=== PATIENT | female | born 1960 | race African-American/Black ===

== ENCOUNTER → 2017-10-17 17:49 | Outpatient (CLI) | payer OTHER, MEDICAID, SELFPAY ==
--- NOTE | 2017-10-17 17:56 | DI.RAD.S_ITS ---
PROCEDURE: XR CERVICAL SPINE 2V OR 3V INDICATIONS: chronic neck and arm pain TECHNIQUE: 3 view(s) of the cervical spine were acquired. COMPARISON: [facility], X-ray, cervical spine 3 V, 10/16/2011. FINDINGS: Bones: No fractures or dislocations to the C7 level. Straightening of cervical curvature with loss of normal cervical lordosis. The lateral masses of C1 appear intact on the odontoid view. There is mild/moderate degenerative disc disease at C5-C6 and C6-C7, slightly increased since . No suspicious bony lesions. Soft tissues: No prevertebral soft tissue swelling. IMPRESSION: 1. Mild worsening of degenerative disc disease. 2. Loss of cervical curvature. Dictated by: Trinity Easton M.D. on 10/17/2017 at 20:47 Approved by: Trinity Easton M.D. on 10/17/2017 at 20:49
== END ==
PROVIDERS: Visit Provider Physician Assistant
DX: M50.322 Other cervical disc degeneration at C5-C6 level (principal); M54.2 Cervicalgia; M79.603 Pain in arm, unspecified; R20.2 Paresthesia of skin
CPT/HCPCS: 72040

== ENCOUNTER 2018-01-03 14:32 | Emergency (ER) | payer OTHER, MEDICAID, SELFPAY ==
[2018-01-03 14:36] VITALS: BP 176/112; PULSE 81; RESP 20; TEMP 36.6; O2SAT 99; BMI 28.3
== END 2018-01-03 16:23 | disposition left against medical advice (07) ==
DX: S91.332A Puncture wound without foreign body, left foot, initial encounter (principal)
CPT/HCPCS: 99281

== ENCOUNTER 2018-01-04 22:29 | Emergency (ER) | payer OTHER, MEDICAID, SELFPAY ==
[2018-01-04 22:42] VITALS: BP 151/98; PULSE 74; RESP 18; TEMP 37.4; O2SAT 97; BMI 28.3
--- NOTE | 2018-01-04 22:58 | PC.NURSE ---
pt has small red area that loos like it may have been a puncture wound. pt stated we picked glass out of there the other day and it was swollen up like golf ball size. pt worried there is still glass in her foot. swelling barley noticable. denies fever,v/n/d, fatigue or SOB/Chest pain.
--- NOTE | 2018-01-04 23:06 | DI.RAD.S_ITS ---
PROCEDURE: XR FOOT LT 2V INDICATIONS: Puncture wound; possible foreign body. TECHNIQUE: 3 views of the foot were acquired. COMPARISON: None. FINDINGS: Bones: No fractures or dislocations. No suspicious bony lesions. Degenerative joint disease noted. Soft tissues: No tibiotalar joint effusion. Achilles tendon appears normal. No radiopaque foreign bodies identified. IMPRESSION: No radiopaque foreign bodies. Dictated by: Trinity Easton M.D. on 01/05/2018 at 10:05 Approved by: Trinity Easton M.D. on 01/05/2018 at 10:06
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
== END 2018-01-05 00:39 | disposition home or self-care (01) ==
PROVIDERS: Emergency Provider Emergency Medicine
DX: S91.332A Puncture wound without foreign body, left foot, initial encounter (principal); W25.XXXA Contact with sharp glass, initial encounter
CPT/HCPCS: 73620; 99282; 99283

== ENCOUNTER 2018-08-29 01:38 | Emergency (ER) | payer OTHER, MEDICAID, SELFPAY ==
--- NOTE | 2018-08-29 01:44 | DI.RAD.S_ITS ---
PROCEDURE: XR CHEST 1V INDICATIONS: Chest Pain TECHNIQUE: One view of the chest was acquired. COMPARISON: [facility], CHEST 1 VIEW, 07/15/2017, 16:03. [facility], CHEST 1 VIEW, 04/04/2017, 8:04. [facility], , CHEST 2 VIEW, 03/17/2017, 13:47. FINDINGS: Surgical changes and devices: None. Lungs and pleura: Mild prominence of the pulmonary vasculature. Mild bilateral perihilar pulmonary opacities. No pleural effusion or pneumothorax. Mediastinum: Mediastinal contours appear normal. Heart size at the upper limits of normal in size, similar to prior exam. Bones and chest wall: No suspicious bony lesions. Overlying soft tissues appear unremarkable. IMPRESSION: Mild bilateral perihilar pulmonary opacities most consistent with atelectasis. Dictated by: Viin Saldana M.D. on 08/29/2018 at 5:57 Approved by: Vini Saldana M.D. on 08/29/2018 at 6:00
[2018-08-29 01:52] VITALS: BP 213/127; PULSE 85; RESP 19; TEMP 36.9; O2SAT 95; BMI 31.8
--- NOTE | 2018-08-29 01:59 | PC.NURSE ---
Attempted to place PIV. Flash received, pt jerked and was unable to advance catheter despite trying to call patient.
[2018-08-29] MEDS: ASPIRIN 81 MG TAB 324 MG PO (02:04)
--- NOTE | 2018-08-29 02:09 | PC.NURSE ---
Magnolia Valdez RN attempted one IV start. Pt refuses further IV starts. Provider notified and ok'd a lab draw.
--- NOTE | 2018-08-29 02:10 | PC.NURSE ---
Drawn by Miya from Lab
[2018-08-29 02:11] VITALS: BP 160/101; PULSE 82; RESP 18; O2SAT 98
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
[2018-08-29 02:19] LABS: Add Manual Diff / Slide Review NO; Basophils Absolute Auto 100 /uL (0-100); Eosinophils Absolute Auto 200 /uL (0-450); Eosinophils Percent Auto 2.4 % (2-4); Hematocrit 40.8 % (36-46); Hemoglobin 13.5 g/dL (12.0-16.0); Lymphocytes Absolute Auto 2400 /uL (1100-4500); Lymphocytes Percent Auto 34.2 % (25-40); Mean Corpuscular Hemoglobin 27.6 PG (26-34); Mean Corpuscular Volume 83.6 fL (80-100); Monocytes Absolute Auto 700 /uL (0-900); Monocytes Percent Auto 10.7 % (3-14); Neutrophils Absolute Auto 3600 /uL (1500-7000); Neutrophils Percent Auto 51.7 % (50-75); Platelet Count 141 X10^3/uL (150-400); Red Blood Cell Count 4.88 X10^6/uL (4.0-5.2); Red Cell Distribution Width 12.5 % (11.6-14.8); White Blood Cell Count 6.9 X10^3/uL (4.5-11.0)
[2018-08-29 02:23] LABS: D Dimer < 200 ng/mL (<230)
[2018-08-29 02:24] LABS: Alanine Aminotransferase 54 IU/L (9-52); Albumin 4.1 g/dL (3.5-5.0); Albumin Globulin Ratio 1.2 (1.0-2.8); Alkaline Phosphatase 136 U/L (38-126); Aspartate Aminotransferase 55 IU/L (14-36); Bilirubin Total 0.3 mg/dL (0.2-1.3); Blood Urea Nitrogen 16 mg/dL (7-17); Calcium 9.2 mg/dL (8.4-10.2); Carbon Dioxide 27 mmol/L (22-32); Chloride 98 mmol/L (98-107); Creatine Kinase 212 U/L (30-135); Estimated Glomerular Filt Rate 57.6 mL/min (>60); Globulin 3.5 g/dL (1.7-4.1); Glucose 145 mg/dL (70-100); HEMOLYSIS < 15 (0-50); Lipase 102 U/L (23-300); Potassium 3.1 mmol/L (3.4-5.1); Sodium 136 mmol/L (137-145); Total Protein 7.6 g/dL (6.3-8.2)
[2018-08-29 02:36] LABS: Troponin I 0.023 ng/mL (0.01-0.034)
[2018-08-29 02:40] LABS: CKMB % Relative Index 1.7 % (1.5-5.0); Creatine Kinase MB 3.53 ng/mL (<2.37)
[2018-08-29 02:42] LABS: B Type Natriuretic Peptide < 100 (<100)
[2018-08-29] MEDS: POTASSIUM CHLORIDE 20 MEQ/15 ML UDC 40 MEQ PO (02:43)
[2018-08-29 02:48] VITALS: BP 143/118; PULSE 82; RESP 18; O2SAT 98
== END 2018-08-29 02:51 | disposition home or self-care (01) ==
PROVIDERS: Emergency Provider Emergency Medicine
DX: R07.89 Other chest pain (principal); S30.861A Insect bite (nonvenomous) of abdominal wall, initial encounter
CPT/HCPCS: 36415; 71045; 80053; 82550; 82553; 83690; 83880; 84484; 85025; 85379; 93005; 99283; 99285

== ENCOUNTER 2018-08-30 14:49 | Emergency (ER) | payer OTHER, MEDICAID, SELFPAY ==
[2018-08-30 15:00] VITALS: BP 184/109; PULSE 76; RESP 20; TEMP 37; O2SAT 99
== END 2018-08-30 19:23 | disposition left against medical advice (07) ==
PROVIDERS: Emergency Provider Emergency Medicine
DX: Z53.21 Procedure and treatment not carried out due to patient leaving prior to being seen by health care provider (principal)
CPT/HCPCS: 99282

== ENCOUNTER 2018-11-21 20:37 | Emergency (ER) | payer OTHER, MEDICAID, SELFPAY ==
[2018-11-21 21:02] VITALS: BP 190/127; PULSE 72; RESP 13; TEMP 36.2; O2SAT 100
--- NOTE | 2018-11-21 21:05 | DI.RAD.S_ITS ---
PROCEDURE: XR FOOT RT MIN 3V INDICATIONS: poss needle part in foot. TECHNIQUE: 3 views of the foot were acquired. COMPARISON: [facility], CR, XR FOOT LT 2V, 01/04/2018, 22:49. FINDINGS: Bones: No acute fractures or dislocations. Small ossicle adjacent to the first metatarsal head may represent a fracture fragment. Navicular os. Prior distal fibular ORIF. No beau-screw lucency or lift off. No suspicious bony lesions. Soft tissues: No radiopaque foreign body. No tibiotalar joint effusion. Achilles tendon appears normal. IMPRESSION: 1. No radiopaque foreign body. 2. No acute osseous abnormality. Dictated by: Armond Torrez M.D. on 11/21/2018 at 21:39 Approved by: Armond Torrez M.D. on 11/21/2018 at 21:42
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
[2018-11-21] MEDS: TET,DIPH,PERTUSS(ACELL),VAC/PF 0.5 ML SYRINGE IM (21:37)
[2018-11-21 22:01] VITALS: BP 200/108; PULSE 68; RESP 13; TEMP 36.7; O2SAT 99
== END 2018-11-21 22:02 | disposition home or self-care (01) ==
PROVIDERS: Emergency Provider Emergency Medicine
DX: M79.671 Pain in right foot (principal); W26.8XXA Contact with other sharp object(s), not elsewhere classified, initial encounter; Z23 Encounter for immunization
CPT/HCPCS: 73630; 90472; 99282; 99283; 90715

== ENCOUNTER 2018-11-22 21:15 | Emergency (ER) | payer OTHER, MEDICAID, SELFPAY ==
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
[2018-11-22 21:20] VITALS: PULSE 92; RESP 24; TEMP 37.3; O2SAT 99
[2018-11-22 21:26] VITALS: BP 210/121
--- NOTE | 2018-11-22 21:27 | PC.NURSE ---
notified doctor of high bp, no action required
[2018-11-22] MEDS: DOXYCYCLINE HYCLATE 100 MG TABLET PO (21:30)
== END 2018-11-22 21:39 | disposition home or self-care (01) ==
PROVIDERS: Emergency Provider Emergency Medicine
DX: L03.113 Cellulitis of right upper limb (principal); W26.8XXD Contact with other sharp object(s), not elsewhere classified, subsequent encounter
CPT/HCPCS: 99282; 99283

== ENCOUNTER 2019-08-30 10:02 | Inpatient (IN) | payer OTHER, MEDICAID, SELFPAY ==
[2019-08-30] VITALS (20 sets, daily range): BP systolic 133–240; BP diastolic 83–162; PULSE 66–91; RESP 13–20; TEMP 35.9–36.5; O2SAT 95–100; BMI 33.1
--- NOTE | 2019-08-30 10:19 | DI.RAD.S_ITS ---
PROCEDURE: XR CHEST 1V INDICATIONS: chest pain TECHNIQUE: One view of the chest was acquired. COMPARISON: [facility], , CHEST 1 VIEW, 04/04/2017, 8:04. [facility], , CHEST 1 VIEW, 07/15/2017, 16:03. [facility], , XR CHEST 1V, 08/29/2018, 1:48. FINDINGS: Surgical changes and devices: None. Lungs and pleura: Lungs are clear. No pleural effusions or pneumothorax. Mediastinum: The cardiac contours are within normal limits. The aorta demonstrates calcification and tortuosity. Bones and chest wall: Age-appropriate bony degenerative changes are seen. No suspicious bony lesions. Overlying soft tissues appear unremarkable. IMPRESSION: Unremarkable portable chest for age. Dictated by: Jose Goldberg M.D. on 08/30/2019 at 9:38 Approved by: Jose Goldberg M.D. on 08/30/2019 at 9:38
[2019-08-30 10:28] LABS: Add Manual Diff / Slide Review NO; Basophils Absolute Auto 100 /uL (0-100); Basophils Percent Auto 1.2 % (0-2); Eosinophils Absolute Auto 200 /uL (0-450); Hematocrit 43.1 % (36-46); Hemoglobin 14.2 g/dL (12.0-16.0); Lymphocytes Absolute Auto 2200 /uL (1100-4500); Mean Corpuscular HGB Conc 32.9 % (30-36); Mean Corpuscular Hemoglobin 27.1 PG (26-34); Mean Corpuscular Volume 82.3 fL (80-100); Monocytes Absolute Auto 900 /uL (0-900); Monocytes Percent Auto 11.1 % (3-14); Neutrophils Absolute Auto 5000 /uL (1500-7000); Neutrophils Percent Auto 59.7 % (50-75); Platelet Count 144 X10^3/uL (150-400); Red Blood Cell Count 5.23 X10^6/uL (4.0-5.2); Red Cell Distribution Width 12.8 % (11.6-14.8); White Blood Cell Count 8.4 X10^3/uL (4.5-11.0)
[2019-08-30 10:37] LABS: PTT Partial Thromboplastin Tim 30 SECONDS (26.4-36.2)
[2019-08-30 10:41] LABS: Alanine Aminotransferase 36 IU/L (<35); Alkaline Phosphatase 156 U/L (38-126); Aspartate Aminotransferase 52 IU/L (14-36); BUN Creatinine Ratio 19.4 (6-22); Bilirubin Total 0.5 mg/dL (0.2-1.3); Blood Urea Nitrogen 33 mg/dL (7-17); Calcium 9.4 mg/dL (8.4-10.2); Carbon Dioxide 29 mmol/L (22-32); Chloride 100 mmol/L (98-107); Creatine Kinase 121 U/L (30-135); Estimated Glomerular Filt Rate 31.1 mL/min (>60); Glucose 95 mg/dL (70-100); HEMOLYSIS < 15 (0-50); Lipase 195 U/L (23-300); Potassium 3.6 mmol/L (3.4-5.1); Sodium 135 mmol/L (137-145)
[2019-08-30] MEDS: LABETALOL 20 MG/4 ML SYRINGE 10 MG IV (10:50)
[2019-08-30 10:56] LABS: CKMB % Relative Index 3.5 % (1.5-5.0); Creatine Kinase MB 4.19 ng/mL (<2.37)
[2019-08-30 11:21] LABS: Troponin I 0.127 ng/mL (0.01-0.034)
[2019-08-30] MEDS: ASPIRIN 81 MG CHEW TAB 243 MG PO (12:11)
[2019-08-30] MEDS: NITROGLYCERIN OINT 1 INCH/GM OINT...G. TOP (12:11)
[2019-08-30] MEDS: AMLODIPINE 2.5 MG TABLET 10 MG PO (12:12)
[2019-08-30] MEDS: SODIUM CHLORIDE 0.9% 1,000 ML 125 ML IV (12:12)
[2019-08-30 12:13] LABS: NT-proBNP (BNP-Adult 18+) 4080 pg/mL (<125)
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
[2019-08-30] MEDS: HYDRALAZINE 20 MG/ML VIAL IV (14:12)
--- NOTE | 2019-08-30 14:23 | PC.ADMIT ---
2025 Zayra Reagan Admission Note: Patient states she came to the ER because of headache and was found to be hypertensive. States she had run out of her BP meds 3 days ago and she has been trying to establish with a pcp, to manage her medications. She does report that she has been having migraines almost every day with nausea and emesis, visual disturbance including black spots, (which she endorses at this time) for the past few weeks. She currently endorses mild nausea, states she hasn't eaten all day. States Excedrin works well for her after about 20 min. Given Hydralazine IV per orders, patient reports starting to feel panic and woozy. BP improved to 163/119. Dr. Manzanares now at bedside. Blood Glucose 84. The patient,Dayanna Mcneill,58 y/o, was given written information regarding hospital policies, unit procedures and contact persons. Patient's smoking status: Former smoker. Vital Signs - 8 hr 08/30/19 10:16 08/30/19 10:56 08/30/19 10:57 Pulse Rate 91 H 66 77 Respiratory Rate 20 18 13 Blood Pressure 240/162 H Blood Pressure [Left Arm] 211/136 H Blood Pressure [Right Arm] 211/136 H Pulse Oximetry 100 100 08/30/19 11:26 08/30/19 12:01 08/30/19 13:03 Pulse Rate 69 68 69 Respiratory Rate 14 20 Blood Pressure Blood Pressure [Left Arm] Blood Pressure [Right Arm] 190/125 H 210/130 H 223/134 H Pulse Oximetry 99 99 08/30/19 13:51 08/30/19 14:12 Pulse Rate 77 75 Respiratory Rate 20 Blood Pressure 236/134 H 226/150 H Blood Pressure [Left Arm] Blood Pressure [Right Arm] Pulse Oximetry 99
--- NOTE | 2019-08-30 14:54 | DI.CT.S_ITS ---
PROCEDURE: CT HEAD/BRAIN WO CON INDICATIONS: malignant hypertension with visual changes TECHNIQUE: Noncontrast 4.5 mm thick angled axial sections acquired from the foramen magnum to the vertex, with coronal and sagittal reformats. For radiation dose reduction, the following was used: automated exposure control, adjustment of mA and/or kV according to patient size. COMPARISON: [facility], CT, HEAD WITHOUT CONTRAST, 07/18/2016, 13:30. FINDINGS: Image quality: Excellent. CSF spaces: Basal cisterns are patent. No extra-axial fluid collections. Ventricles are normal in size and shape. Brain: No midline shift. No intracranial masses or hemorrhage. Yip-white matter interface is normal. Skull and face: Calvarium and visualized facial bones are intact, without suspicious lesions. Sinuses: Visualized sinuses and mastoids are clear. IMPRESSION: Unremarkable head CT. No evidence acute stroke, hemorrhage, or mass. Dictated by: Polo Perez M.D. on 08/30/2019 at 15:35 Approved by: Polo Perez M.D. on 08/30/2019 at 15:38
--- NOTE | 2019-08-30 14:55 | DI.US.S_ITS ---
PROCEDURE: US RENAL COMPLETE INDICATIONS: WORSENING RENAL FUNCTION TECHNIQUE: Real-time scanning was performed of the kidneys and bladder, with image documentation. COMPARISON: None. FINDINGS: Kidneys: The kidneys are small in size and demonstrate overall increased echogenicity. Right kidney measures 10.7 cm long; left kidney measures 8.7 cm long. Right renal cortical thickness is 1.3 cm; left renal cortical thickness is 1.7 cm. the left kidney is not well-seen. No hydronephrosis or nephrolithiasis. No suspicious solid mass lesions. Bladder: Pre-void bladder volume is 347 mL. Post-void residual is 31 mL. Pre-void images demonstrate no intraluminal masses or stones. On pre-void images, neither of the ureteral jets are noted with color Doppler interrogation. (Of note, ureteral jets may not be detectable in up to 25% of cases due to insufficient differences in specific gravity between ureteral and bladder urine). Miscellaneous: No free pelvic fluid. IMPRESSION: Mildly atrophic, echogenic kidneys are seen, which are consistent with the given clinical history. No hydronephrosis is seen. Mild to moderate postvoid residual, 31 cc. Dictated by: Jose Goldberg M.D. on 08/30/2019 at 16:31 Approved by: Jose Goldberg M.D. on 08/30/2019 at 16:33
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
--- NOTE | 2019-08-30 14:58 | DI.ECHO.S_ITS ---
[facility] +---------+ [facility] +---------+ : : [address] [place] : : : : [id number] : : : : Phone: [phone]+ Echocardiogram Report + + :Name: ISAIAH SANCHEZ Study Date: 08/31/2019 Height: 63 in : :[facility] Weight: 190 lb : : Gender: Female BSA: 1.9 m2 : :: 1960 Age: 58 yrs BP: 156/101 mmHg: :Reason For Study: congestive heart disease : :Ordering Physician: Jeanette : :Hospitalist Performed By: Claire Garduno : :Referring: OANH COLLIER : + + Interpretation Summary 1) Mildly increased left ventricular thickness with normal size and mildly reduced systolic function (EF about 45%). 2) Global hypokinesis that appears worse at the base. 3) Normal right ventricular size and function. 4) No significant valvular abnormalities. 5) Hypertension present during the study (BP 156/101mmHg). 6) Compared to the Echo done 07/22/2017, no significant change. Procedure: A two-dimensional transthoracic echocardiogram with color flow and Doppler was performed. The study quality was technically adequate. Comparison is made with the echocardiogram of 07/22/2017. The patient was in normal sinus rhythm during the exam. Left Ventricle: The left ventricle is normal in size. Left ventricular wall thickness is mildly increased. Left ventricular ejection fraction is estimated to be 45 +/- 5%. Global longitudinal strain average of -10.1%. There is mild global hypokinesis of the left ventricle. Right Ventricle: The right ventricle is normal in size and function. Atria: The left atrial size is normal. The right atrium is normal in size. There is no Doppler evidence for an interatrial shunt. Mitral Valve: The mitral valve leaflets appear mildly thickened, but open well. There is mild mitral regurgitation. Aortic Valve: The aortic valve is trileaflet. The aortic valve opens well. There is no aortic valve stenosis. No aortic regurgitation is present. Tricuspid Valve: The tricuspid valve is normal in structure and function. There is a trace or physiologic amount of tricuspid regurgitation. Pulmonary artery pressures cannot be estimated because of the lack of a measurable TR jet velocity but the IVC suggests a CVP of around 3 mmHg. Pulmonic Valve: The pulmonic valve is not well seen, but is grossly normal. There is trace pulmonic regurgitation. Great Vessels: The aortic root is normal size. The dimensions of the ascending aorta are normal. The IVC is of normal diameter and collapses greater than 50% with a sniff. This suggests a low right atrial pressure of 3 mm Hg. Pericardium/ Pleura There is no pericardial effusion. There is no pleural effusion. MMode/2D Measurements & Calculations LVIDd: 4.7 cm LVOT diam: 2.2 cm LVIDs: 3.5 cm Ao root diam: 3.0 cm FS: 25.3 % asc Aorta Diam: 3.1 cm EPSS: 1.1 cm IVSd: 1.4 cm LVPWd: 1.4 cm LV kenney. diameter/BSA (cm/m^2): 2.5 LV sys. diameter/BSA (cm/m^2): 1.9 LA A2 area: 19.4 cm2 RA long axis: 5.1 cm LA A4 area: 16.4 cm2 RA area: 15.9 cm2 LA length (vol): 5.1 cm RA vol: 42.1 ml LA vol: 52.8 ml RA : 22.3 ml/m2 LA vol index: 27.9 ml/m2 IVC diam: 1.00 cm RVD1 (basal): 3.2 cm TAPSE: 2.2 cm Doppler Measurements & Calculations Ao V2 max: 156.2 cm/sec LVOT Max Leif: 92.6 cm/sec Ao V2 mean: 109.8 cm/sec LV V1 max P.4 mmHg Ao max P.8 mmHg LV V1 VTI: 17.3 cm Ao mean P.5 mmHg KEREN(I,D): 2.5 cm2 Ao V2 VTI: 26.3 cm KEREN(V,D): 2.2 cm2 sev ratio: 0.66 KEREN indexed to BSA (cm^2/m^2): 1.3 MV E max leif: 53.7 cm/sec PA pr(Accel): 44.3 mmHg MV A max leif: 100.3 cm/sec MV E/A: 0.53 Med Peak E' Leif: 2.7 cm/sec E/E' med: 20.2 Lat Peak E' Leif: 2.3 cm/sec E/E' lat: 23.6 E/e' average: 21.9 MV dec time: 0.21 sec SV(LVOT): 65.1 ml Reading Physician:09:48 AM
[2019-08-30] MEDS: ONDANSETRON 4 MG/2 ML INJ IV (16:54)
[2019-08-30] MEDS: LABETALOL 20 MG/4 ML SYRINGE IV (16:57)
[2019-08-30] MEDS: carvediloL 12.5 MG TABLET PO ×2 (16:57→21:14)
[2019-08-30] MEDS: OXYCODONE IR 10 MG TABLET PO (17:00)
[2019-08-30] MEDS: FUROSEMIDE 40 MG/4 ML VIAL IV (17:12)
[2019-08-30 18:59] LABS: Troponin I 0.089 ng/mL (0.01-0.034)
[2019-08-30] MEDS: HEPARIN 5,000 UNIT/ML VIAL 5000 UNIT SUBCUT (21:14)
[2019-08-30] MEDS: DOCUSATE 100 MG CAPSULE PO (21:14)
--- NOTE | 2019-08-30 23:18 | PC.NURSE ---
Pt reports severe SAMS at 1600 and nausea; IV Zofran for emesis; PO oxycodone for SAMS; BP @ 1715 155/84; BP @ 1945 133/83; Emesis at 1999 patient declines Zofran; Emesis at 2130; Afebrile; high fall risk r/t pain and N/V, bed alarm active and patient instructed to use call light; frequent checks 24-hour Urine Collection starts at 1999 with 1st void discarded
[2019-08-30] MEDS: ACETAMINOPHEN 325 MG TABLET 650 MG PO (23:32)
[2019-08-30] MEDS: HYDRALAZINE 20 MG/ML VIAL 10 MG IV (23:32)
[2019-08-30] MEDS: SODIUM CHLORIDE 0.9% FLUSH 10 ML IV (23:34)
[2019-08-31] VITALS (19 sets, daily range): BP systolic 138–201; BP diastolic 77–128; PULSE 72–93; RESP 16–18; TEMP 36.2–36.9; O2SAT 96–100
--- NOTE | 2019-08-31 00:52 | PC.NURSE ---
Addendum entered by Kinsey Phelan R.N. 08/31/19 05:55: Given Protonix @ 0539 and now vomited 100cc emesis. States that's what always happens when I take medication on an empty stomach. Medicated with Zofran. Addendum entered by Kinsey Phelan R.N. 08/31/19 05:40: Slept at intervals. Complains of heavy head but denies pain. BP was 148/89 at 0330 and now 151/91 Addendum entered by Kinsey Phelan R.N. 08/31/19 01:37: States headache is back and now rates severity as 6/10; medicated with Oxycodone. 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 Original Note: Patient seen and assessed at 2350. Is alert and oriented but complaining of 5/10 headache; medicated with Tylenol and provided ice pack with pain improving and patient is not asleep. Breath sounds CTA with RA sat of 95%. HRR. BP elevated at 166/112 so was medicated with Hydralazine and recheck on BP was 138/77. Telemetry reading was SA and PUBLIC TRANSPORTATION INSPECTOR reports at 0020 patient had a 7 beat run of v-tach; patient asleep at the time. Denies nausea. BT present and is passing flatus. Has not yet voided this shift; will be collecting a 24h urine. Is able to move self in bed but states she feels weak in lower extremities so is provided SBA when out of bed. Wearing bilateral calf SCD's. Moderate fall risk; bed alarm is activated.
[2019-08-31] MEDS: OXYCODONE IR 10 MG TABLET PO ×2 (01:35→08:19)
[2019-08-31] MEDS: PANTOPRAZOLE 20 MG TABLET PO (05:39)
[2019-08-31] MEDS: ONDANSETRON 4 MG/2 ML INJ IV (05:50)
[2019-08-31] MEDS: SODIUM CHLORIDE 0.9% FLUSH 10 ML IV ×6 (05:50→23:50)
[2019-08-31 06:48] LABS: Alanine Aminotransferase 32 IU/L (<35); Alkaline Phosphatase 119 U/L (38-126); Aspartate Aminotransferase 45 IU/L (14-36); BUN Creatinine Ratio 17.3 (6-22); Bilirubin Total 0.7 mg/dL (0.2-1.3); Blood Urea Nitrogen 30 mg/dL (7-17); Calcium 9.3 mg/dL (8.4-10.2); Carbon Dioxide 30 mmol/L (22-32); Chloride 95 mmol/L (98-107); Estimated Glomerular Filt Rate 30.5 mL/min (>60); Globulin 3.9 g/dL (1.7-4.1); Glucose 120 mg/dL (70-100); HEMOLYSIS 32 (0-50); Magnesium 1.9 mg/dL (1.6-2.3); Potassium 3.5 mmol/L (3.4-5.1); Sodium 134 mmol/L (137-145); Total Protein 7.9 g/dL (6.3-8.2)
[2019-08-31 06:56] LABS: NT-proBNP (BNP-Adult 18+) 2730 pg/mL (<125)
[2019-08-31 07:24] LABS: Thyroid Stimulating Hormone 1.19 uIU/mL (0.47-4.68)
[2019-08-31] MEDS: DOCUSATE 100 MG CAPSULE PO ×2 (08:19→20:46)
[2019-08-31] MEDS: carvediloL 12.5 MG TABLET PO ×2 (08:19→20:44)
[2019-08-31] MEDS: AMLODIPINE 5 MG TABLET 10 MG PO (08:19)
[2019-08-31] MEDS: ASPIRIN EC 81 MG TABLET PO (08:19)
[2019-08-31] MEDS: HEPARIN 5,000 UNIT/ML VIAL 5000 UNIT SUBCUT ×2 (08:20→20:47)
--- NOTE | 2019-08-31 08:41 | PC.NURSE ---
Addendum entered by Roma Peres R.N. 08/31/19 10:22: Patient reports headache continues but is better, nausea improved, BP 174/114 hR 72, 10mg IVP hydralazine given. Original Note: Patient alert, oriented, c/o headache 09/04 but reports it is better than yesterday. Patient ate a few bites of breakfast took PO medication and then had 500cc emesis. ICe pack and 5mg oxycodone was also given with meal. Patient denies chest pain and reports some shortness of breath LS clear and RA sats 100%
[2019-08-31] MEDS: HYDRALAZINE 20 MG/ML VIAL 10 MG IV ×2 (10:15→23:49)
[2019-08-31] MEDS: BUTALB/APAP/CAFFEINE 50/325/40 TABLET 1 EACH PO ×3 (11:40→21:50)
[2019-08-31] MEDS: FUROSEMIDE 40 MG/4 ML VIAL IV (11:40)
--- NOTE | 2019-08-31 12:03 | DIET.PN ---
Dietary Progress Note Assessment: Ms. Mcneill is a 58-year-old female with a history of hypertension, congestive heart failure who has been off her medication for the past 4 days. She presented to the clinic yesterday for new patient appointment and was found to have a systolic of over 200 and diastolic of over 150. She was then referred to the emergency department for further evaluation. Patient does report continuous headache for which she has been taking Excedrin daily for the past several days. She has also had some nausea but no vomiting. She states nausea often occurs after eating. She has been able to tolerate jello and apple sauce. HT: 161.29cm WT: 85.1kg BMI: 32.7 Labs: BUN: 33 Cr: 1.7 GFR: 31.1 AST: 52 ALT: 36 BNP: 4080 Tro I: .0127 BP : 220/150 @ admit MNA: 14 Rian: 22 Nutrition Diagnosis: 1. Altered nutrition-related lab values r/t kidney/liver dysfunction aeb elevated AST, ALT, BUN, Cr and decreased eGFR, food and nutrition related knowledge deficit. 2. Food- and nutrition-related knowledge deficit r/t uncertainty how to apply nutrition information aeb difficulty understanding hypertension MNT provided. Interventions: 1. Provided instruction on heart healthy/hypertension nutrition therapy. Recommended limiting sodium to 2 g per day, cholesterol 200 mg, limit saturated fats, increase unsaturated fats and plant sources of food, increase water intake to 64oz per day. Handouts provided. 2. Pt agreeable to ONS ensure clear until she is able to tolerate regular diet. Diet Order: Heart healthy EER: 1700 javier (20cal/kg obese); 68g Pro (0.8g/kg kidney injury) Monitoring/Evaluations: PO's, diet tolerance
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
--- NOTE | 2019-08-31 15:09 | CM.DANOTE ---
DCP: Case received, EMR reviewed. Did not meet with patient, for she has been having nausea and headaches, and sleeping most of the day. Was able to get information from EMR regarding patient's situation, as far as health history and reason for admission. DCP assessment completed with information currently available. Patient is a 58 year old female who admitted yesterday afternoon to the care of the hospitalist team. PCP: Ana LO at [facility]. Payer: confirmed: [facility]. Patient came to the hospital from referral from Erin Haas at [facility]. Patient had just been newly established by provider there, and her blood pressure had been elevated. According to notes, she had not taken her blood pressure for the last few days, had run out. Dr. Preston had seen her approximately 1.5 years ago, and had been filling her medications according to notes. Have not been able to talk to patient to get further information as far as why she did not fill her medications. She does now had a provider. Patient also has history of CHF, as well. According to notes, patient lives alone, has a daughter named Dana, and is unclear if she is local. Patient lives in [place]. Patient has been sleeping most of the day, and have not been able to speak to her due to severity of head aches and nausea. According to hospitalist, blood pressures have gone down. P: DCP to continue to follow. Will be available for any resources needed. Will continue to reach out for patient for any needs, such as medications, etc. Unclear at this time where she gets her medications. Tamara Hand RN/Staffing Administrator
--- NOTE | 2019-08-31 18:11 | PM.PN.1 ---
Subjective Subjective Date Patient Seen: 08/31/19 Interval history: Patient continues to have labile blood pressure. She complains of Headache. She takes excedrin daily and has done so for several weeks. She complains of shortness of breath but no chest pain. She had nausea earlier. She was seeing black spots, but this has improved. Exam Vital Signs (past 8 hours): - 08/31/19 10:15 08/31/19 11:26 08/31/19 11:35 Temperature Pulse Rate 72 83 73 Respiratory Rate Blood Pressure 174/114 H 161/111 H 186/93 H Pulse Oximetry 08/31/19 13:38 08/31/19 15:00 08/31/19 16:30 Temperature 98.4 F Pulse Rate 88 93 H Respiratory Rate 17 Blood Pressure 167/111 H 188/121 H Pulse Oximetry 100 98 Oxygen Delivery Method Room Air Oxygen Flow Rate 0 Const General: cooperative and well developed Nutritional Appearance: well nourished Orientation: alert and awake Other: Lungs: clear to auscultation CV: RRR nl Sl S2 Abd; soft/ non tender/ non distended Ext: no edema Objective Labs Result Diagrams: 08/30/19 10:20 08/31/19 06:14 Labs: Laboratory Results - last 24 hr 08/30/19 08/31/19 08/31/19 18:28 06:14 06:14 Sodium 134 L Potassium 3.5 Chloride 95 L Carbon Dioxide 30 BUN 30 H Creatinine 1.73 H Estimated GFR 30.5 L BUN/Creatinine Ratio 17.3 Glucose 120 H Calcium 9.3 Magnesium 1.9 Total Bilirubin 0.7 AST 45 H ALT 32 Alkaline Phosphatase 119 Troponin I 0.089 H NT-Pro-B Natriuret Pep 2730 H Total Protein 7.9 Albumin 4.0 Globulin 3.9 Albumin/Globulin Ratio 1.0 TSH 1.19 Assessment & Plan Assessment & Plan narrative: 1. Female admitted with -Hypertensive urgency -off medications for 3 days -Still with elevated blood pressures -continue hydralazine, add isordil -d/c PHILLIP-i given worsening renal function 2. Acute Systolic Heart Failure -Echo reveals EF 45%, with global hypokinesis unchanged -Excellent response to lasix today -Continue BBlocker 3. Headache -? rebound vs. caffeine withdrawal, vs migraine SAMS -Fiorecet q 4 hours prn 4. Acute Renal Failure baseline creatinine 1.0, Creatinine 1.73 Renal Ultrasound reveals no obstruction Plan: Home when blood pressure improved
--- NOTE | 2019-08-31 19:49 | PC.NURSE ---
Evening Shift Note- Patient doing a 24hr urine collection which was to be over at 1999. 24Hr collection restarted at 1999 due to an aid accidentally flushing an earlier void.
[2019-08-31] MEDS: HYDRALAZINE 25 MG TABLET 50 MG PO (20:49)
[2019-09-01] VITALS (15 sets, daily range): BP systolic 144–183; BP diastolic 86–125; PULSE 66–106; RESP 16–18; TEMP 36.2–37.1; O2SAT 97–99
--- NOTE | 2019-09-01 00:07 | PC.NURSE ---
Addendum entered by Kinsey Phelan R.N. 09/01/19 06:54: Recheck on BP after IV Hydralazine given is 173/125 with HR of 73. WALLY Cavanaugh, informed. Addendum entered by Kinsey Phelan R.N. 09/01/19 06:22: BP still elevated at 165/103 so given IV Hydralazine Addendum entered by Kinsey Phelan R.N. 09/01/19 05:51: BP 181/111; medicated with scheduled po Hydralazine and informed Mao LO. Stated to recheck BP in 30 minutes and if still high to also give the IV Hydralazine Addendum entered by Kinsey Phelan R.N. 09/01/19 01:55: Medicated with Fioricet for 6/10 headache. Addendum entered by Kinsey Phelan R.N. 09/01/19 00:44: Complains of 6/10 headache but too early to repeat Fioricet and patient declines offer of Oxycodone stating she will wait until she can have it next. Provided ice pack but instructed to call if she changes her mind. Original Note: Patient is alert and oriented. Breath sounds CTA with RA sat of 97%; does endorse mild SOB with exertion. HRR; on telemetry but no reading recorded for 0000 as yet. BP elevated at 184/128 so medicated with IV Hydralazine. Denies nausea. Does have headache still but states is only 1/10 and declines need for pain medication; ice pack applied. BT present and is passing flatus. Voiding without dysuria, frequency or urgency. Able to turn self in bed but is provided SBA when out of bed for safety. Wearing bilateral calf SCD's. Trace pedal edema noted. Fall risk score is moderate; bed alarm is activated.
[2019-09-01] MEDS: BUTALB/APAP/CAFFEINE 50/325/40 TABLET 1 EACH PO ×5 (01:53→21:15)
[2019-09-01] MEDS: HYDRALAZINE 25 MG TABLET 50 MG PO ×3 (05:48→21:11)
[2019-09-01] MEDS: PANTOPRAZOLE 20 MG TABLET PO (05:48)
[2019-09-01 05:51] LABS: Add Manual Diff / Slide Review NO; Basophils Absolute Auto 100 /uL (0-100); Basophils Percent Auto 0.8 % (0-2); Eosinophils Absolute Auto 200 /uL (0-450); Eosinophils Percent Auto 2.7 % (2-4); Hematocrit 41.2 % (36-46); Hemoglobin 13.9 g/dL (12.0-16.0); Lymphocytes Absolute Auto 2800 /uL (1100-4500); Lymphocytes Percent Auto 33.4 % (25-40); Mean Corpuscular HGB Conc 33.7 % (30-36); Mean Corpuscular Hemoglobin 27.7 PG (26-34); Mean Corpuscular Volume 82.1 fL (80-100); Monocytes Absolute Auto 1000 /uL (0-900); Monocytes Percent Auto 12.5 % (3-14); Neutrophils Absolute Auto 4200 /uL (1500-7000); Neutrophils Percent Auto 50.6 % (50-75); Platelet Count 116 X10^3/uL (150-400); Red Blood Cell Count 5.02 X10^6/uL (4.0-5.2); Red Cell Distribution Width 12.8 % (11.6-14.8); White Blood Cell Count 8.4 X10^3/uL (4.5-11.0)
[2019-09-01 06:00] LABS: Alanine Aminotransferase 29 IU/L (<35); Alkaline Phosphatase 117 U/L (38-126); Aspartate Aminotransferase 42 IU/L (14-36); BUN Creatinine Ratio 15.3 (6-22); Bilirubin Total 0.6 mg/dL (0.2-1.3); Blood Urea Nitrogen 28 mg/dL (7-17); Calcium 9.2 mg/dL (8.4-10.2); Carbon Dioxide 31 mmol/L (22-32); Chloride 93 mmol/L (98-107); Estimated Glomerular Filt Rate 28.6 mL/min (>60); Globulin 3.9 g/dL (1.7-4.1); Glucose 111 mg/dL (70-100); HEMOLYSIS < 15 (0-50); Sodium 134 mmol/L (137-145); Total Protein 7.9 g/dL (6.3-8.2)
[2019-09-01 06:05] LABS: NT-proBNP (BNP-Adult 18+) 1410 pg/mL (<125)
[2019-09-01] MEDS: SODIUM CHLORIDE 0.9% FLUSH 10 ML IV ×3 (06:19→21:15)
[2019-09-01] MEDS: HYDRALAZINE 20 MG/ML VIAL 10 MG IV (06:19)
[2019-09-01 06:25] LABS: Troponin I 0.159 ng/mL (0.01-0.034)
[2019-09-01] MEDS: ISOSORBIDE DINITRATE 20 MG TABLET PO ×3 (08:13→17:22)
[2019-09-01] MEDS: carvediloL 12.5 MG TABLET PO (08:14)
[2019-09-01] MEDS: ASPIRIN EC 81 MG TABLET PO (08:14)
[2019-09-01] MEDS: AMLODIPINE 5 MG TABLET 10 MG PO (08:14)
[2019-09-01] MEDS: DOCUSATE 100 MG CAPSULE PO ×2 (08:14→21:11)
[2019-09-01] MEDS: HEPARIN 5,000 UNIT/ML VIAL 5000 UNIT SUBCUT ×2 (08:14→21:11)
[2019-09-01] MEDS: OXYCODONE IR 10 MG TABLET PO (10:21)
[2019-09-01] MEDS: cloNIDine TTS 0.2 MG PATCH TOP (12:16)
--- NOTE | 2019-09-01 12:16 | PT-IP ANOTE ---
Pt refuses PT at this time reporting she has a bad SAMS and feels weak and just wants to rest. Check again in PM.
--- NOTE | 2019-09-01 14:22 | PT-IP ANOTE ---
Pt refused therapy again reporting her head hurt too much. Pt asked about pain meds and relayed info to RN who said pt is not due for any meds at this time. Check on pt again in AM.
[2019-09-01] MEDS: carvediloL 25 MG TABLET PO ×2 (14:41→21:18)
--- NOTE | 2019-09-01 15:35 | PC.NURSE ---
0900- Patient has a migraine this morning. Given fiorcet at 0830 and not helping much, gave patient an oxycodone and she still states that not effective. Patient anxious and sanitation associate light every few minutes. She did get up to shower herself, npo after breakfast to go down to Stress test but patient refused. Then stated that she wanted to do it. Phone down to [facility] and Kaitlynn states that they will not be able to get this done today as she refused test and schedule changed. is aware of this. BP down to 150s/90s at one point when Dr. mahan do rounds. Just given fiorcet about one hour ago and she did state that her headache was better. Friend called to check on her and gave number if patient needed anything. She is comfortable at this time and resting comfortably.
--- NOTE | 2019-09-01 16:16 | P.PN_ITS ---
Subjective Subjective Interval history: Ms. Mcneill is a 58 y/o female who missed her blood pressure medications for 3 days and presented with hypertensive urgency, headache, and shortness of breath. She continues to have difficult to control blood pressure, headache that responded to fiorcet yesterday and intermittant shortness of breath. She denies chest pain but has had elevated troponin's. She was scheduled for a stress test today but refused the study. She is currently resting comfortably. Exam Vital Signs (past 8 hours): - 09/01/19 12:00 09/01/19 14:40 09/01/19 14:41 Temperature 97.1 F L Pulse Rate 80 70 Respiratory Rate 18 Blood Pressure 153/99 H 171/93 H 171/93 H Pulse Oximetry 99 09/01/19 15:25 Temperature 98.0 F Pulse Rate 74 Respiratory Rate 18 Blood Pressure 158/97 H Pulse Oximetry 98 Oxygen Delivery Method Room Air Oxygen Flow Rate 0 Narrative Exam Narrative: Tearful female, uncomfortable Lungs: clear to auscultation CV: RRR nl Sl S2 Abd; Soft/ non tender/ non distended Ext: no edema Objective Labs Result Diagrams: 09/01/19 05:18 09/01/19 05:18 Labs: Laboratory Results - last 24 hr 09/01/19 09/01/19 09/01/19 05:18 05:18 05:18 WBC 8.4 RBC 5.02 Hgb 13.9 Hct 41.2 MCV 82.1 MCH 27.7 MCHC 33.7 RDW 12.8 Plt Count 116 L Neut % (Auto) 50.6 Lymph % (Auto) 33.4 [place] % (Auto) 12.5 Eos % (Auto) 2.7 Baso % (Auto) 0.8 Neut # (Auto) 4200 Lymph # (Auto) 2800 [place] # (Auto) 1000 H Eos # (Auto) 200 Baso # (Auto) 100 Sodium 134 L Potassium 3.0 L Chloride 93 L Carbon Dioxide 31 BUN 28 H Creatinine 1.83 H Estimated GFR 28.6 L BUN/Creatinine Ratio 15.3 Glucose 111 H Calcium 9.2 Total Bilirubin 0.6 AST 42 H ALT 29 Alkaline Phosphatase 117 Troponin I 0.159 H* NT-Pro-B Natriuret Pep Total Protein 7.9 Albumin 4.0 Globulin 3.9 Albumin/Globulin Ratio 1.0 09/01/19 05:18 WBC RBC Hgb Hct MCV MCH MCHC RDW Plt Count Neut % (Auto) Lymph % (Auto) [place] % (Auto) Eos % (Auto) Baso % (Auto) Neut # (Auto) Lymph # (Auto) [place] # (Auto) Eos # (Auto) Baso # (Auto) Sodium Potassium Chloride Carbon Dioxide BUN Creatinine Estimated GFR BUN/Creatinine Ratio Glucose Calcium Total Bilirubin AST ALT Alkaline Phosphatase Troponin I NT-Pro-B Natriuret Pep 1410 H Total Protein Albumin Globulin Albumin/Globulin Ratio Assessment & Plan Assessment & Plan narrative: 58 y/o female admitted with acclerated hypertension -continue Coreg, increase to 25 BID -add hydralazine, isordil -add clonidine TTS patch Acute Congestive Heart Failure -Echo reveals hypokinesis -EF 45% -diuresed, on isordil, hydralzine, BBlocker Acute Renal Failure -Renal Ultrasound normal -Likely Hypertensive disease as etiology Hypokalemia -will replace Elevated Troponin ? Type 2 Myocardial infarction Patient refused stress test will follow and continue Asa, BBlocker for now No WMA on Echo which is reasurring, outpatient cardiac eval Headache ? chronic daily headache vs. rebound SAMS, vs, hypertensive SAMS continue fiorecet Home tomorrow if blood pressure improved
[2019-09-01] MEDS: POTASSIUM CHLORIDE 20 MEQ TAB 40 MEQ PO (17:21)
[2019-09-01 21:08] LABS: Troponin I 0.097 ng/mL (0.01-0.034)
--- NOTE | 2019-09-01 21:22 | PM.EVENT ---
Event Note Date Patient Seen: 09/01/19 Time Patient Seen: 21:23 Event Note: Patient was telling her nurse she was wanting to go home. She seemed to be distressed and tearful when I saw her. I told her her troponin was improving and EKG was improved over previous. She said she was bored and claustrophobic, continuing to have a headache and wanted more jello. Denies chest pain or shortness of breath. She states that many of the meds she has been given for her headaches make her sick. I told her I thought she needed to spend one more night and that Dr. Manzanares would help her with that decision tomorrow and she agreed. I will continue to follow and be available to her. Will trial her back on tramadol which she has taken in the past.
[2019-09-01] MEDS: TRAMADOL 50 MG TABLET PO (21:39)
[2019-09-02] VITALS (7 sets, daily range): BP systolic 152–173; BP diastolic 79–107; PULSE 61–71; RESP 16–18; TEMP 36.1–36.2; O2SAT 94–100
--- NOTE | 2019-09-02 01:59 | PC.NURSE ---
Addendum entered by Kinsey Phelan R.N. 09/02/19 06:29: Noted 2kg weight loss which is expected as patient has been on meds to diurese. Addendum entered by Kinsey Phelan R.N. 09/02/19 06:24: BP this morning was 160/98 when given po Hydralazine. Now BP is 173/107 so medicated with IV Hydralazine. Original Note: Patient is alert and oriented but upset with being woke up. Breath sounds CTA with RA sat of 95%. HRR. BP improved tonight but still elevated at 154/95. Telemetry reading was SR w/BBB. Denies nausea. BT present and is passing flatus but has not had BM since 08/28. Voiding without dysuria, frequency or urgency. Able to turn self in bed. SBA provided when out of bed for safety at night. Had SCD's off but now agreeable to having them put back on. IV found pulled out so had to restart which upset patient more; kept repeating it's 1 o'clock in the morning and I just want to go home. Fall risk score is moderate; bed alarm is activated for safety at night.
[2019-09-02] MEDS: HYDRALAZINE 25 MG TABLET 50 MG PO (05:46)
[2019-09-02] MEDS: PANTOPRAZOLE 20 MG TABLET PO (05:46)
[2019-09-02 05:58] LABS: BUN Creatinine Ratio 14.3 (6-22); Blood Urea Nitrogen 24 mg/dL (7-17); Calcium 8.9 mg/dL (8.4-10.2); Carbon Dioxide 30 mmol/L (22-32); Chloride 95 mmol/L (98-107); Estimated Glomerular Filt Rate 31.5 mL/min (>60); Glucose 102 mg/dL (70-100); HEMOLYSIS < 15 (0-50); Potassium 3.2 mmol/L (3.4-5.1); Sodium 132 mmol/L (137-145)
[2019-09-02] MEDS: HYDRALAZINE 20 MG/ML VIAL 10 MG IV (06:20)
[2019-09-02] MEDS: SODIUM CHLORIDE 0.9% FLUSH 10 ML IV (06:21)
--- NOTE | 2019-09-02 07:56 | P.DS_ITS ---
History of Present Illness History of Present Illness Chief complaint: high blood pressure Narrative: Patient is a 58-year-old female with a history of hypertension, congestive heart failure who has been off her meds for the past 3 days. She presented to the clinic today for new patient appointment. In the clinic she was found to have a systolic of over 200 and diastolic of over 150. Patient was referred to the emergency department for further evaluation. Patient does report continuous headache. She has been taking Excedrin daily for the past several days for the headache. She describes black spots in her visual field. She has also had some nausea but no vomiting hematemesis melena or bright red blood per rectum. The patient does report a history of heart failure. She thinks she has had an echo in the past but it is unavailable. She admits to having possible increased salt intake. She denies any chest pain, or palpitations. She does report some shortness of breath which has been associate d with her current symptoms of headache over the past few days. Patient was seen and evaluated in the emergency department. She was found to be markedly hypertensive. She was given IV antihypertensives. The patient arrived to the floor with a blood pressure of 220 systolic over 150 diastolic. She is admitted for treatment of poorly controlled high blood pressure. Patient was found to have a elevated troponin. Troponin I was at 0.127. Creatinine was elevated at 1.7. Discharge Providers Provider Date of admission: 08/30/19 12:47 Discharge Date: 09/02/19 Primary care physician: WALLY Larkin Consults: 08/30/19 14:51 Consult to Dietitian, Adult Routine Comment: Reason For Exam: dietary counseling for hypertension 08/31/19 11:29 Consult to Physical Therapy Evaluate & Treat Comment: Physician Instructions: Evaluate and Treat Discharge provider: Alexa Manzanares MD Summary Hospital Course Discharge Diagnosis: 1. Hypertensive Urgency 2. Acute Systolic Heart Failure, ejection fraction 45% 3. Acute Renal Failure 4. Chronic Daily Headache 5. Hyponatremia Hospital Course: Patient was admitted for acclerated hypertension. She presented to her PCP's office and was found to have a Systolic blood pressure over 200. Upon arrival to the ED her recorded blood pressure was 240/162. She also complained of shortness of breath and headache. The patient was admitted to the hospital and started on IV blood pressure medications. She was found to have a proBNP of over 4000. Patient was diuresed with improvement of her shortness of breath. Her headache reamined an issue especially with elevated blood pressure. She was treated with fiorcet. Her Head CT was negative. Patient was also found to have Acute Renal Failure with an admission Creatinine of 1.7. Her most recent baseline was 1.0. Patient had an renal ultrasound which revealed no hydronephrosis, She had an echo which revealed mild global hypokinesis with a reduced ejection fraction of 45%. Her blood pressure medications were adjusted. Her blood pressure improved. She diuresed with lasix with improvement of her shortness of breath. The patient had an elevated troponin of .159. She had no associated chest pain. Her EKG showed LVH with chronic ST Twave abnormalities. The patient was scheduled for a stress test but she refused the study. As she had no chest pain and it was felt that the tropnin elevation was due to demand ischemia, she will have the stress test completed as an outpatient. Patient made slow but steady improvement and was deemed appropriate for discharge home. Status at Discharge Cognitive/behavioral status at discharge: oriented Functional status at discharge: independent ambulation Overall status at discharge: patient is back to baseline Time Spent with Patient Time spent: Less than 30 minutes Exam Vital Signs (past 8 hours): - 09/02/19 00:54 09/02/19 05:36 09/02/19 05:46 Temperature 97.1 F L 97.0 F L Pulse Rate 66 65 61 Respiratory Rate 18 16 Blood Pressure 154/95 H 158/102 H 160/98 H Pulse Oximetry 95 94 09/02/19 06:18 09/02/19 06:20 09/02/19 06:48 Temperature Pulse Rate 71 71 65 Respiratory Rate Blood Pressure 173/107 H 173/107 H 152/79 H Pulse Oximetry Oxygen Delivery Method Room Air Oxygen Flow Rate 0 Narrative Exam Narrative: Sleepy but arousable Lungs: clear to ausculatation CV; RRR nl Sl S2 2/6 ROXIE ABd; Soft/ non tender/ non distended Ext: no edema Objective Labs Result Diagrams: 09/01/19 05:18 09/02/19 05:25 Labs: Laboratory Results - last 24 hr 09/01/19 09/02/19 20:39 05:25 Sodium 132 L Potassium 3.2 L Chloride 95 L Carbon Dioxide 30 BUN 24 H Creatinine 1.68 H Estimated GFR 31.5 L BUN/Creatinine Ratio 14.3 Glucose 102 H Calcium 8.9 Troponin I 0.097 H Discharge Plan Discharge Plan Patient Disposition: Home Discharge orders & Medications Prescriptions: New amlodipine [Norvasc] 5 mg Tablet 10 mg PO DAILY Qty: 30 RF: 0 hydralazine 25 mg Tablet 50 mg PO Q8HR Qty: 30 RF: 0 isosorbide dinitrate 20 mg Tablet 20 mg PO AC Qty: 30 RF: 0 carvedilol [Coreg] 25 mg Tablet 25 mg PO BID Qty: 30 RF: 0 Continued tramadol 50 mg tablet See Rx Instructions PO TID PRN (Reason: pain) Qty: 20 RF: 0 aspirin [Adult Aspirin Regimen] 81 mg tablet,delayed release (DR/EC) 81 mg PO DAILY RF: 0 Discontinued carvedilol 6.25 mg tablet 6.25 mg PO BID RF: 0 lisinopril 20 MG tablet 10 mg PO BID Qty: 0 RF: 0 Excedrin Extra Strength 250-250-65 mg Tablet 2 tab PO DAILY RF: 0 Follow up/Referrals: Vahid Haas ARNP [Primary Care Provider] - Discharge Health Status Multidrug resistant organism: No MDRO Diet/Activity/Treatments Diet: Low-sodium Activity: as tolerated Discharge Data Primary Care Provider: Vahid Haas
[2019-09-02] MEDS: POTASSIUM CHLORIDE 20 MEQ TAB 40 MEQ PO (08:40)
[2019-09-02] MEDS: HEPARIN 5,000 UNIT/ML VIAL 5000 UNIT SUBCUT (08:40)
[2019-09-02] MEDS: ISOSORBIDE DINITRATE 20 MG TABLET PO (08:40)
[2019-09-02] MEDS: carvediloL 25 MG TABLET PO (08:40)
[2019-09-02] MEDS: AMLODIPINE 5 MG TABLET 10 MG PO (08:41)
[2019-09-02] MEDS: ASPIRIN EC 81 MG TABLET PO (08:41)
--- NOTE | 2019-09-02 09:10 | PT-IP ANOTE ---
Pt refused PT x3 this morning, reported high level of fatigue.
--- NOTE | 2019-09-02 10:41 | PC.NURSE ---
Addendum entered by Francisca Ovalle R.N. 09/02/19 15:36: Patient discharged to home, she was a bit lethargic before she left. ORGAN PIPE FINISHER walked patient home, as she lived 1 block away. She was steady on her feet and A&Ox3. We did offer patient to lay down for a couple of hours or stay longer but she refused. Landlord and friend have phoned twice to say that patient is lethargic and sleepy. She was not given any fiorcet or tramadol on this day shift. Original Note: Patient is going to discharge home around 11am! She denies headache and is steady on her feet. BP down to 160s/90s. O chest pain or complaints of dizziness, patient is not anxious and has been appropriate with care.
[2019-09-04 16:07] LABS: Cortisol Fr ug/24hr urine 11 ug/24 hr (6-42); Cortisol, Free, Urine 7 ug/L (Undefined)
[2019-09-06 13:48] LABS: Dopamine, Ur 24hr 84 ug/24 hr (0-510); Epinephrine, U 24hr 6 ug/24 hr (0-20); Norepinephrine Ur 24hr 82 ug/24 hr (0-135)
[2019-09-08 08:44] LABS: 5-HIAA, UR 24HR 3.7 mg/24 hr (0.0-14.9); 5-HIAA, Urine 2.4 mg/L (Undefined)
[2019-09-09 13:36] LABS: Creatinine, 24 Urine 1063 mg/24 hr (800-1800); Creatinine,Urine 68.6 mg/dL (Not Estab.)
== END 2019-09-02 11:15 | disposition home or self-care (01) | DRG 199 ==
LOC: ED 12:46 → AC 13:55
PROVIDERS: Emergency Medicine; Admitting Provider Internal Medicine; Emergency Provider Nurse Practitioner Family; PCP Nurse Practitioner Family; Visit Provider Internal Medicine
DX: I16.0 Hypertensive urgency (principal); I11.0 Hypertensive heart disease with heart failure; N17.9 Acute kidney failure, unspecified; I50.21 Acute systolic (congestive) heart failure; I24.8 Other forms of acute ischemic heart disease; R51 Headache; Z87.891 Personal history of nicotine dependence; Z91.14 Patient's other noncompliance with medication regimen
CPT/HCPCS: 36415; 70450; 71045; 76770; 80048; 80053; 82088; 82384; 82530; 82550; 82553; 82570; 83497; 83690; 83735; 83880; 84443; 84484; 85025; 85610; 85730; 93005; 93306; 96361; 96374; 97116; 97162; 99285; J0360; J1644; J1940; J2405

== ENCOUNTER 2019-12-13 03:11 | Inpatient (IN) | payer OTHER, MEDICAID, SELFPAY ==
[2019-08-30 13:49] VITALS: BMI 33.1
[2019-12-13] VITALS (27 sets, daily range): BP systolic 167–247; BP diastolic 97–148; PULSE 60–92; RESP 11–26; TEMP 35.9–37.1; O2SAT 95–99; BMI 30.1
--- NOTE | 2019-12-13 03:20 | DI.RAD.S_ITS ---
PROCEDURE: XR CHEST 1V INDICATIONS: SOB TECHNIQUE: One view of the chest was acquired. COMPARISON: [facility], CR, XR CHEST 1V, 08/30/2019, 10:20. FINDINGS: Surgical changes and devices: None. Lungs and pleura: Mild increased vascularity. There is blunting of the left costophrenic angle mild left lower lobe opacity. Mediastinum: Mediastinal contours appear normal. Heart size is enlarged. Bones and chest wall: No suspicious bony lesions. Overlying soft tissues appear unremarkable. IMPRESSION: Cardiomegaly as well as increased vascularity and left effusion most suggestive of edema. Areas of underlying pneumonia and/or atelectasis cannot be excluded. Dictated by: Sruthi Cortes M.D. on 12/13/2019 at 8:55 Approved by: Sruthi Cortes M.D. on 12/13/2019 at 8:55
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
[2019-12-13] MEDS: NITROGLYCERIN OINT 1 INCH/GM OINT...G. TOP (03:38)
[2019-12-13 03:46] LABS: Add Manual Diff / Slide Review NO; Basophils Absolute Auto 100 /uL (0-100); Basophils Percent Auto 1.2 % (0-2); Eosinophils Absolute Auto 200 /uL (0-450); Eosinophils Percent Auto 2.7 % (2-4); Hematocrit 38.1 % (36-46); Hemoglobin 12.2 g/dL (12.0-16.0); INR 0.9 (0.9-1.3); Lymphocytes Absolute Auto 3600 /uL (1100-4500); Lymphocytes Percent Auto 40.9 % (25-40); Mean Corpuscular Hemoglobin 26.2 PG (26-34); Monocytes Absolute Auto 1000 /uL (0-900); Neutrophils Absolute Auto 3900 /uL (1500-7000); Neutrophils Percent Auto 44.2 % (50-75); Platelet Count 170 X10^3/uL (150-400); Prothrombin Time 10.4 SECONDS (10.1-12.7); Red Blood Cell Count 4.64 X10^6/uL (4.0-5.2); White Blood Cell Count 8.8 X10^3/uL (4.5-11.0)
[2019-12-13 03:48] LABS: PTT Partial Thromboplastin Tim 23 SECONDS (26.4-36.2)
[2019-12-13 03:51] LABS: Alanine Aminotransferase 41 IU/L (<35); Albumin 4.2 g/dL (3.5-5.0); Alkaline Phosphatase 136 U/L (38-126); Aspartate Aminotransferase 54 IU/L (14-36); BUN Creatinine Ratio 17.4 (6-22); Bilirubin Total 0.6 mg/dL (0.2-1.3); Blood Urea Nitrogen 47 mg/dL (7-17); Calcium 9.5 mg/dL (8.4-10.2); Carbon Dioxide 25 mmol/L (22-32); Chloride 105 mmol/L (98-107); Estimated Glomerular Filt Rate 18.2 mL/min (>60); Globulin 4.1 g/dL (1.7-4.1); Glucose 92 mg/dL (70-100); HEMOLYSIS 31 (0-50); Lipase 341 U/L (23-300); Potassium 4.6 mmol/L (3.4-5.1); Sodium 137 mmol/L (137-145); Total Protein 8.3 g/dL (6.3-8.2)
[2019-12-13] MEDS: FUROSEMIDE 40 MG/4 ML VIAL IV ×2 (03:52→17:21)
[2019-12-13 04:03] LABS: NT-proBNP (BNP-Adult 18+) 6570 pg/mL (<125)
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
[2019-12-13 05:41] LABS: Magnesium 2.1 mg/dL (1.6-2.3)
[2019-12-13 06:12] LABS: Thyroid Stimulating Hormone 2.34 uIU/mL (0.47-4.68)
[2019-12-13 06:30] LABS: Cholesterol 174 mg/dL (140-199); HDL Cholesterol 83 mg/dL (40-60); LDL Cholesterol Calculated 55 mg/dL (<100); Triglycerides 180 mg/dL (35-150)
[2019-12-13] MEDS: carvediloL 6.25 MG TABLET PO (08:33)
[2019-12-13] MEDS: SODIUM CHLORIDE 0.9% FLUSH 10 ML IV ×2 (08:34→21:32)
[2019-12-13] MEDS: SUMAtriptan 25 MG TABLET 100 MG PO ×2 (08:34→18:06)
[2019-12-13] MEDS: ISOSORBIDE DINITRATE 20 MG TABLET PO (08:34)
[2019-12-13] MEDS: ASPIRIN EC 81 MG TABLET PO (08:34)
[2019-12-13] MEDS: ACETAMINOPHEN 325 MG TABLET 650 MG PO ×2 (08:34→14:23)
[2019-12-13] MEDS: HEPARIN 5,000 UNIT/ML VIAL 5000 UNIT SUBCUT ×2 (08:35→21:32)
[2019-12-13] MEDS: LABETALOL 20 MG/4 ML SYRINGE 10 MG IV (09:44)
[2019-12-13 10:20] LABS: COVID19 -Nasal RAPID Negative (Negative)
--- NOTE | 2019-12-13 12:31 | PC.NURSE ---
Day shift note: Patient C/O headache, generalized ache 10/10 worse with movement, notified Dr. Pulido. At reassessment, 09/04 improving. Labetolol 10 mg IV administered for sustained diastolic > 100, MD aware. BP at 1230: 169/112 HR 70, Dr. Pulido made aware. Patient resting in room, agreeable for lab work. Continue on RA. Calls appropriately for staff assist.
--- NOTE | 2019-12-13 12:32 | DI.ECHO.S_ITS ---
[facility]+ [facility] +---------+ : : [address] : : : : [id number] : : : : Phone: [phone]+ Echocardiogram Report + + :Name: ISAIAH SANCHEZ Study Date: 12/13/2019 Height: 63 in : :[facility] Weight: 170 lb : : Gender: Female BSA: 1.8 m2 : :: 1960 Age: 59 yrs BP: 177/131 mmHg: :Reason For Study: SEVERE HYPERTENSION, ELEVATED TROPONINS : :Ordering Physician: Jeanette : :Hospitalist Performed By: Claire Garduno : :Referring: AYAN ALARCON : + + Interpretation Summary A two-dimensional transthoracic echocardiogram with color flow and Doppler was performed in limited views only. Left ventricular systolic function is mildly reduced. The ejection fraction is estimated to be ~40%. Left ventricular global longitudinal strain average is abnormal at -10.2% (normal being more negative than -20%).This is unchanged compared to the prior echocardiogram. There is mild global hypokinesis of the left ventricle. There are no focal wall motion abnormalities. Overall these findings are similar to the prior echocardiogram but the LV contractility is slightly less vigorous. Procedure: A two-dimensional transthoracic echocardiogram with color flow and Doppler was performed in limited views only. The study quality was technically adequate. Comparison is made with the echocardiogram of 08/31/2019. The heart rate ranged between 66-71 bpm during the study. Left Ventricle: The left ventricle is normal in size. There is mild concentric left ventricular hypertrophy. Left ventricular global longitudinal strain average is abnormal at -10.2% (normal being more negative than -20%). Left ventricular systolic function is mildly reduced. Left ventricular ejection fraction is estimated to be 40%. There is mild global hypokinesis of the left ventricle. There are no focal wall motion abnormalities. Right Ventricle: The right ventricle is normal size. Atria: The left atrium is mildly dilated. Right atrial size is normal. Aortic Valve: The aortic valve is trileaflet. The aortic valve opens well. Tricuspid Valve: The tricuspid valve is normal in structure and function. There is a trace or physiologic amount of tricuspid regurgitation. Pulmonary artery pressures cannot be estimated because of the lack of a measurable TR jet velocity but the IVC suggests a CVP of around 3 mmHg. Great Vessels: The IVC is of normal diameter and collapses greater than 50% with a sniff. This suggests a low right atrial pressure of 3 mm Hg. Pericardium/ Pleura There is no pericardial effusion. There is no pleural effusion. MMode/2D Measurements & Calculations LVIDd: 4.9 cm LA A2 area: 23.2 cm2 LVIDs: 4.2 cm LA A4 area: 16.0 cm2 FS: 13.8 % LA length (vol): 4.7 cm EPSS: 1.5 cm LA vol: 66.4 ml IVSd: 1.2 cm LA vol index: 36.8 ml/m2 LVPWd: 1.4 cm LV kenney. diameter/BSA (cm/m^2): 2.7 LV sys. diameter/BSA (cm/m^2): 2.3 RA long axis: 4.7 cm RVD1 (basal): 3.5 cm RA area: 14.3 cm2 RA vol: 37.2 ml RA : 20.6 ml/m2 IVC diam: 0.86 cm LVAd ap4: 34.9 cm2 LVAs ap4: 25.5 cm2 LVLs ap4: 7.7 cm Doppler Measurements & Calculations PA V2 max: 83.7 cm/sec PA V2 mean: 54.0 cm/sec PA mean P.4 mmHg PA pr(Accel): 22.5 mmHg Electronically signed by: Heriberto Elmore M.D. on Reading Physician:12/13/2019 04:20 PM
[2019-12-13 13:12] LABS: Add Manual Diff / Slide Review NO; Basophils Absolute Auto 100 /uL (0-100); Basophils Percent Auto 0.9 % (0-2); Eosinophils Absolute Auto 200 /uL (0-450); Eosinophils Percent Auto 2.1 % (2-4); Hematocrit 37.6 % (36-46); Lymphocytes Absolute Auto 1700 /uL (1100-4500); Lymphocytes Percent Auto 22.5 % (25-40); Mean Corpuscular HGB Conc 31.8 % (30-36); Mean Corpuscular Hemoglobin 26.2 PG (26-34); Mean Corpuscular Volume 82.3 fL (80-100); Monocytes Absolute Auto 700 /uL (0-900); Monocytes Percent Auto 9.5 % (3-14); Neutrophils Absolute Auto 4800 /uL (1500-7000); Platelet Count 146 X10^3/uL (150-400); Red Blood Cell Count 4.57 X10^6/uL (4.0-5.2); Red Cell Distribution Width 13.2 % (11.6-14.8); White Blood Cell Count 7.4 X10^3/uL (4.5-11.0)
[2019-12-13 13:29] LABS: Magnesium 2.1 mg/dL (1.6-2.3)
[2019-12-13 13:30] LABS: Creatine Kinase 105 U/L (30-135)
[2019-12-13 13:33] LABS: Alanine Aminotransferase 38 IU/L (<35); Albumin Globulin Ratio 1.1 (1.0-2.8); Alkaline Phosphatase 116 U/L (38-126); Aspartate Aminotransferase 49 IU/L (14-36); BUN Creatinine Ratio 17.3 (6-22); Bilirubin Total 0.7 mg/dL (0.2-1.3); Blood Urea Nitrogen 46 mg/dL (7-17); Calcium 9.3 mg/dL (8.4-10.2); Carbon Dioxide 29 mmol/L (22-32); Chloride 100 mmol/L (98-107); Estimated Glomerular Filt Rate 18.5 mL/min (>60); Globulin 3.7 g/dL (1.7-4.1); Glucose 127 mg/dL (70-100); HEMOLYSIS 17 (0-50); Potassium 3.8 mmol/L (3.4-5.1); Sodium 136 mmol/L (137-145); Total Protein 7.7 g/dL (6.3-8.2)
--- NOTE | 2019-12-13 13:33 | P.PN_ITS ---
Subjective Subjective Date Patient Seen: 12/13/19 Interval history: Brief progress note: Patient seen and examined. Physical exam unchanged and does not appear hypervolemic. Discontinued Lasix 40 mg IV twice daily after afternoon dose because appears euvolemic. Echo limited essentially unchanged. Started amlodipine 5 mg twice daily, increased home carvedilol from 6.25 mg to 12.5 mg twice daily, started hydralazine 25 mg three times daily, discontinued isosorbide dinitrate. Type II TX resolving with diuresis and likely secondary to hypervolemia and demand ischemia in setting of CKD. No EKG changes or wall motion changes on echo. Patient had severe headache improved with sumatriptan and acetaminophen. Patient continues to have mild headache and plan avoid NSAIDs due to JAMILA. If persistently hypertensive overnight (goal SBP < 180 mmHg) with JAMILA and persistent especially worsening headache will plan to place on nicardipine gtt. JAMILA likely secondary to hypoperfusion from volume overload a severe hypertension in setting of lisinopril and frequent NSAID use. LFTs likely secondary to hepatic congestion versus fatty liver disease. Exam Vital Signs (past 8 hours): - 12/13/19 08:00 12/13/19 09:00 12/13/19 09:44 Temperature Pulse Rate 79 74 77 Respiratory Rate 16 16 Blood Pressure 177/131 H 187/132 H Pulse Oximetry 98 97 12/13/19 10:59 12/13/19 12:00 Temperature 97.7 F Pulse Rate 74 68 Respiratory Rate 16 Blood Pressure 178/112 H 197/120 H Pulse Oximetry 97 Oxygen Delivery Method Room Air Oxygen Flow Rate 0 Objective Labs Result Diagrams: 12/13/19 13:03 12/13/19 13:03 Labs: Laboratory Results - last 24 hr 12/13/19 12/13/19 12/13/19 03:30 03:30 03:30 WBC 8.8 RBC 4.64 Hgb 12.2 Hct 38.1 MCV 82.0 MCH 26.2 MCHC 32.0 RDW 13.0 Plt Count 170 Neut % (Auto) 44.2 L Lymph % (Auto) 40.9 H [place] % (Auto) 11.0 Eos % (Auto) 2.7 Baso % (Auto) 1.2 Neut # (Auto) 3900 Lymph # (Auto) 3600 [place] # (Auto) 1000 H Eos # (Auto) 200 Baso # (Auto) 100 PT 10.4 INR 0.9 APTT 23 L D Sodium 137 Potassium 4.6 Chloride 105 Carbon Dioxide 25 BUN 47 H Creatinine 2.70 H Estimated GFR 18.2 L BUN/Creatinine Ratio 17.4 Glucose 92 Calcium 9.5 Magnesium Total Bilirubin 0.6 AST 54 H ALT 41 H Alkaline Phosphatase 136 H Total Creatine Kinase Troponin I 0.100 H NT-Pro-B Natriuret Pep 6570 H Total Protein 8.3 H Albumin 4.2 Globulin 4.1 Albumin/Globulin Ratio 1.0 Triglycerides Cholesterol LDL Cholesterol, Calc HDL Cholesterol Lipase 341 H TSH COVID-19 PCR 12/13/19 12/13/19 12/13/19 03:30 03:31 03:31 WBC RBC Hgb Hct MCV MCH MCHC RDW Plt Count Neut % (Auto) Lymph % (Auto) [place] % (Auto) Eos % (Auto) Baso % (Auto) Neut # (Auto) Lymph # (Auto) [place] # (Auto) Eos # (Auto) Baso # (Auto) PT INR APTT Sodium Potassium Chloride Carbon Dioxide BUN Creatinine Estimated GFR BUN/Creatinine Ratio Glucose Calcium Magnesium 2.1 Total Bilirubin AST ALT Alkaline Phosphatase Total Creatine Kinase Troponin I NT-Pro-B Natriuret Pep Total Protein Albumin Globulin Albumin/Globulin Ratio Triglycerides 180 H Cholesterol 174 LDL Cholesterol, Calc 55 HDL Cholesterol 83 H Lipase TSH 2.34 COVID-19 PCR 12/13/19 12/13/19 12/13/19 09:05 13:03 13:03 WBC 7.4 RBC 4.57 Hgb 12.0 Hct 37.6 MCV 82.3 MCH 26.2 MCHC 31.8 RDW 13.2 Plt Count 146 L Neut % (Auto) 65.0 D Lymph % (Auto) 22.5 L [place] % (Auto) 9.5 Eos % (Auto) 2.1 Baso % (Auto) 0.9 Neut # (Auto) 4800 Lymph # (Auto) 1700 [place] # (Auto) 700 Eos # (Auto) 200 Baso # (Auto) 100 PT INR APTT Sodium Potassium Chloride Carbon Dioxide BUN Creatinine Estimated GFR BUN/Creatinine Ratio Glucose Calcium Magnesium Total Bilirubin AST ALT Alkaline Phosphatase Total Creatine Kinase 105 Troponin I NT-Pro-B Natriuret Pep Total Protein Albumin Globulin Albumin/Globulin Ratio Triglycerides Cholesterol LDL Cholesterol, Calc HDL Cholesterol Lipase TSH COVID-19 PCR Negative 12/13/19 13:03 WBC RBC Hgb Hct MCV MCH MCHC RDW Plt Count Neut % (Auto) Lymph % (Auto) [place] % (Auto) Eos % (Auto) Baso % (Auto) Neut # (Auto) Lymph # (Auto) [place] # (Auto) Eos # (Auto) Baso # (Auto) PT INR APTT Sodium Potassium Chloride Carbon Dioxide BUN Creatinine Estimated GFR BUN/Creatinine Ratio Glucose Calcium Magnesium 2.1 Total Bilirubin AST ALT Alkaline Phosphatase Total Creatine Kinase Troponin I NT-Pro-B Natriuret Pep Total Protein Albumin Globulin Albumin/Globulin Ratio Triglycerides Cholesterol LDL Cholesterol, Calc HDL Cholesterol Lipase TSH COVID-19 PCR Quality VTE Deep Vein Thrombosis/Pulmonary Embolism Present on Admission: No
[2019-12-13 13:42] LABS: Troponin I 0.074 ng/mL (0.01-0.034)
[2019-12-13] MEDS: AMLODIPINE 5 MG TABLET PO ×2 (13:42→18:11)
[2019-12-13 13:46] LABS: CKMB % Relative Index 1.7 % (1.5-5.0); Creatine Kinase MB 1.83 ng/mL (<2.37)
--- NOTE | 2019-12-13 15:04 | CM.DANOTE ---
Patient is a 59 year old female who was admitted today on 12/13/19 for CHF/Fatigue. Pt has [facility] for insurance and her PCP is Vahid Haas. EMR was reviewed. Per MD, pt with hx of chronic kidney disease stage III and CHF with recent Echo results of EF 45%. Pt last admitted to [facility] in August 2019 this year with ability to d/c home with outpt follow up. SW met bedside with pt and explained role and pt clearly was not feeling well and complaining of her migraine which she has chronically. Pt confirmed that she lives in [facility] alone and has local supportive friends (Nahed, neighbor nearby that is helpful) and local Dtr Dana in [facility]. Pt is independent with ADL's at baseline. Pt states that her preference is to d/c home when stable but does not seem to fully understand her current medical condition and complexities and confused how her kidney function impacts her preference of using Motrin Migraine medication and does not seem aware of her recent EF of 45%. Pt stating that she is not feeling well enough to answer any further questions at this time. Per RN, Echo results still pending and CBC panel still pending. Pt seems to have a hx of medication noncompliance and not as much medical follow through as recommended and unclear to pt's reasons behind this. Plan: SW to follow closely tomorrow after Echo results return towards determining d/c planning needs and further discussion with pt when she is feeling better in order to participate. MARION Frey Discharge Planning/Care Management CM Discharge Assessment Start: 12/13/19 14:57 Freq: Status: Active Protocol: Document 12/13/19 14:58 (Rec: 12/13/19 15:04 [id number]) Discharge Planning Assessment Assigned Welder Assistant MARION Morales Advance Directives? No Advance Directives on File No History Provided By Patient,Medical Record Has Patient been admitted in last 30 No days? Prior Living Arrangements Apartment/Condo Household Members none Type of transporation used prior to Relies on Others admit Independent with ADL's Yes Is patient alert and oriented? Yes Caregiver for Another No Patient/Family Preference Home with Home Health Comment Pending further workup to determine d/c planning needs Barriers to Discharge No Discharge Plan Home Transportation Arrangement Family member or local friend pending when pt ready for d/c Additional Comment Waiting for Echo results and further workup to determine needs at d/c Review Status In Process Please Provide Date Initial DC 12/13/19 Assessment Was Performed Next Review Type Continued Stay Review
[2019-12-13] MEDS: carvediloL 6.25 MG TABLET 12.5 MG PO (18:13)
[2019-12-13] MEDS: HYDRALAZINE 25 MG TABLET PO (20:10)
[2019-12-13] MEDS: NICARDIPINE 25 MG in SODIUM CHLORIDE 0.9% 240 ML 25 ML IV (22:56)
--- NOTE | 2019-12-13 22:58 | PC.NURSE ---
pt transferred from rm 205 to 228 per bed. Nicardipine gtt started as ordered for BP 198/110 , complains of headache otherwise NSVS intact, TASIA, LYLE equally with good strength. Oriented x4 speech is clear.
--- NOTE | 2019-12-13 23:46 | PC.NURSE ---
Evening SHift Note- Patient alert and oriented and able to make needs known to staff. PRN Imitrex given for complaints of SAMS. Positive results reported. Patient transfered to ICU due to elevated BP's. Report called to ICU nurse and all personal belongs sent with patient.
[2019-12-14] VITALS (51 sets, daily range): BP systolic 137–191; BP diastolic 81–126; PULSE 54–81; RESP 15–18; TEMP 35.9–36.4; O2SAT 92–100
[2019-12-14] MEDS: ACETAMINOPHEN 325 MG TABLET 650 MG PO (06:05)
--- NOTE | 2019-12-14 06:11 | PC.NURSE ---
[employer]erglass Quality Technician Note-Patient has been drowsy but oriented x3, bed alarm on due to forgetfulness. Nicardipine gtt infusing at 2.5mg/hr(25ml/hr) to keep SBP 150-160 as ordered by [employer], see vital trends. SR, SpO2 >94% on RA. C/O headache in am, medicated with Tylenol and ice pack.
[2019-12-14 06:49] LABS: Add Manual Diff / Slide Review NO; Basophils Absolute Auto 100 /uL (0-100); Basophils Percent Auto 1.3 % (0-2); Eosinophils Absolute Auto 300 /uL (0-450); Eosinophils Percent Auto 3.7 % (2-4); Hematocrit 39.8 % (36-46); Hemoglobin 12.9 g/dL (12.0-16.0); Lymphocytes Absolute Auto 2400 /uL (1100-4500); Lymphocytes Percent Auto 32.4 % (25-40); Mean Corpuscular HGB Conc 32.5 % (30-36); Mean Corpuscular Hemoglobin 26.5 PG (26-34); Mean Corpuscular Volume 81.6 fL (80-100); Monocytes Absolute Auto 900 /uL (0-900); Monocytes Percent Auto 11.8 % (3-14); Neutrophils Absolute Auto 3700 /uL (1500-7000); Neutrophils Percent Auto 50.8 % (50-75); Platelet Count 157 X10^3/uL (150-400); Red Blood Cell Count 4.88 X10^6/uL (4.0-5.2); Red Cell Distribution Width 13.4 % (11.6-14.8); White Blood Cell Count 7.3 X10^3/uL (4.5-11.0)
[2019-12-14 06:56] LABS: Hemoglobin A1C% w Est Avg Glu 5.6 % (4.0-6.0)
[2019-12-14 07:01] LABS: Alanine Aminotransferase 38 IU/L (<35); Albumin 4.2 g/dL (3.5-5.0); Alkaline Phosphatase 122 U/L (38-126); Aspartate Aminotransferase 41 IU/L (14-36); Bilirubin Total 0.6 mg/dL (0.2-1.3); Blood Urea Nitrogen 47 mg/dL (7-17); Calcium 9.3 mg/dL (8.4-10.2); Carbon Dioxide 27 mmol/L (22-32); Chloride 99 mmol/L (98-107); Estimated Glomerular Filt Rate 17.6 mL/min (>60); Globulin 4.1 g/dL (1.7-4.1); Glucose 121 mg/dL (70-100); HEMOLYSIS < 15 (0-50); Magnesium 2.2 mg/dL (1.6-2.3); Potassium 3.7 mmol/L (3.4-5.1); Sodium 136 mmol/L (137-145); Total Protein 8.3 g/dL (6.3-8.2)
[2019-12-14] MEDS: carvediloL 6.25 MG TABLET 12.5 MG PO ×2 (08:49→20:53)
[2019-12-14] MEDS: ASPIRIN EC 81 MG TABLET PO (08:49)
[2019-12-14] MEDS: AMLODIPINE 5 MG TABLET PO ×2 (08:49→20:54)
[2019-12-14] MEDS: HYDRALAZINE 25 MG TABLET PO ×3 (08:50→14:31)
[2019-12-14] MEDS: HEPARIN 5,000 UNIT/ML VIAL 5000 UNIT SUBCUT ×2 (08:50→20:54)
[2019-12-14] MEDS: SUMAtriptan 25 MG TABLET 100 MG PO (08:50)
--- NOTE | 2019-12-14 10:48 | CM.DPC ---
DCP: continued: Met with pt during Team Bedside Rounds and then later in followup. PCP: Pt expressed confusion about the status of her PCP. She says she has not seen anyone since she was here in August and that she was unsure if Dr. Moyer wanted her back as she did not always follow his appt schedule. I have never needed doctors until now and I am not very good at this. Agreed to call over to [facility] to see about PCP. Spoke with evangelina nurse Rc( ext: [phone]) who stated that pt was assigned to WALLY Haas as PCP and that the day of first appt (August 29) pt was admitted to . Rc said they had been aware of this and would be pleased to expedite a first appt. as soon as possible after d/c from the hospital. Also confirmed with pt that the [address] address on face sheet is her mailing ledy. Pt resides at [address] [place] [address]. Pt says she still feels very groggy and it is difficult to think and keep awake. it must be this new medicine they are giving me. Dr. Pulido told pt that she would be back later today to discuss her overall medical issues in clinic. P: DC planning team will be following. Would anticipate it would be best if pt had her PCP appt set up before she leaves the hospital.
[2019-12-14] MEDS: SODIUM CHLORIDE 0.9% FLUSH 10 ML IV ×2 (11:24→20:54)
--- NOTE | 2019-12-14 15:03 | DI.US.S_ITS ---
PROCEDURE: US RENAL COMPLETE INDICATIONS: SEVERE HTN WITH WORSENING KIDNEY DISEASE TECHNIQUE: Real-time scanning was performed of the kidneys and bladder, with image documentation. COMPARISON: [facility], CT, CT ABDOMEN PELVIS WITH CONTRAST, 09/08/2018, 3:26. [facility], US, US RENAL COMPLETE, 08/30/2019, 15:39. FINDINGS: Kidneys: Kidneys are normal in size. Right kidney measures 9.5 cm long; left kidney measures 7.5 cm long. Right renal cortical thickness is 1.5 cm; left renal cortical thickness is 1.5 cm. Renal cortical echotexture is increased. No hydronephrosis or nephrolithiasis. No suspicious solid mass lesions. Bladder: Decompressed. Ureteral jets are not seen. Miscellaneous: No free pelvic fluid. IMPRESSION: Increased echogenicity of the renal cortex. Mild renal atrophy. This is likely due to medical renal disease. No hydronephrosis. Decompressed urinary bladder. Dictated by: Armond Torrez M.D. on 12/14/2019 at 15:45 Approved by: Armond Torrez M.D. on 12/14/2019 at 15:49
--- NOTE | 2019-12-14 15:06 | P.PN_ITS ---
Subjective Subjective Date Patient Seen: 12/14/19 Interval history: Dayanna Mcneill is a 59-year-old female with a past medical history significant for systolic congestive heart failure, resistant hypertension with likely hypertensive retinopathy and chronic kidney disease stage III who presented to the ED with worsening shortness of breath and dyspnea on exertion. The patient is resting comfortably at bedside. She reports she feels significantly better today. She had a severe headache yesterday due to severe hypertension and likely nitroglycerin administration. She reports her global headache and a tension-like feeling in the back of her neck are now resolved with control of her blood pressure. She also states that she has felt fatigued for a long time and reports that she got the best rest she has gotten in a long time and she feels more awake and energetic today, able to shower and get ready easily. She no longer feels short of breath at rest. She has not been up ambulating much to assess whether her dyspnea on exertion has improved. She has been titrated off of nicardipine and her blood pressure remains elevated with SBP in the 170s. Plan to continue to adjust antihypertensive and continue evaluation of both primary and secondary causes of hypertension. Plan for cardiology consultation today. The patient also reports that she has a history of IV drug use as a young woman and possibly hepatitis C which may be contributing to her kidney disease as her ex- had hepatitis-C and was treated for this. The patient has no other complaints and denies headache, vision changes, chest pain, shortness of breath at rest, abdominal pain, nausea, vomiting, fever, chills, dysuria, diarrhea or constipation. The patient is voiding without difficulty. She is up ambulating without assistance. Exam Vital Signs (past 8 hours): - 12/14/19 08:00 12/14/19 08:30 12/14/19 09:44 Temperature Pulse Rate 74 Respiratory Rate 16 Blood Pressure 150/88 H 152/86 H Pulse Oximetry 97 12/14/19 09:55 12/14/19 10:00 12/14/19 10:01 Temperature Pulse Rate 81 73 75 Respiratory Rate Blood Pressure 150/97 H 150/96 H Pulse Oximetry 97 97 97 12/14/19 11:00 12/14/19 11:01 12/14/19 12:00 Temperature 97.4 F L Pulse Rate 63 64 64 Respiratory Rate 15 Blood Pressure 167/105 H 177/111 H Pulse Oximetry 97 98 12/14/19 12:15 12/14/19 12:17 12/14/19 13:30 Temperature Pulse Rate 65 71 Respiratory Rate Blood Pressure 170/109 H 170/104 H Pulse Oximetry 98 12/14/19 14:55 Temperature Pulse Rate 76 Respiratory Rate Blood Pressure Pulse Oximetry 99 Oxygen Delivery Method Room Air Oxygen Flow Rate 0 Narrative Exam Narrative: General: Older female sitting at bedside in no acute distress, well-developed, well-nourished, appropriately interactive. HEENT: Normocephalic, atraumatic. External ears without defect. Pupils equal, r ound, and reactive to light. Anicteric sclerae, moist conjunctivae, and no lid lag. Oropharynx free of erythema and cobble stoning with moist mucosa. Neck: Supple with full range of motion. No jugular venous distension. No lymphadenopathy or thyromegaly. Cardiovascular: Regular rate and rhythm without murmurs, rubs, or gallops appreciated. Pulmonary: Clear to auscultation bilaterally without crackles, wheezes, or rhonchi. Normal respiratory effort with no use of accessory muscles. Abdomen: Soft, bowel sounds present, nontender, nondistended. No hepatosplenomegaly or masses appreciated. Extremities: No clubbing, cyanosis, or edema. Skin: Normal temperature, turgor, and texture; no rash, ulcers, or subcutaneous nodules appreciated. Hyperpigmentation of face and keloid scarring throughout body. Neurological: Cranial nerves grossly intact. Psychiatric: Normal mood and affect. Alert and oriented to person, place, and time. Objective Labs Result Diagrams: 12/14/19 06:40 12/14/19 06:40 Labs: Laboratory Results - last 24 hr 12/13/19 12/14/19 12/14/19 22:45 06:40 06:40 WBC 7.3 RBC 4.88 Hgb 12.9 Hct 39.8 MCV 81.6 MCH 26.5 MCHC 32.5 RDW 13.4 Plt Count 157 Neut % (Auto) 50.8 Lymph % (Auto) 32.4 [place] % (Auto) 11.8 Eos % (Auto) 3.7 Baso % (Auto) 1.3 Neut # (Auto) 3700 Lymph # (Auto) 2400 [place] # (Auto) 900 Eos # (Auto) 300 Baso # (Auto) 100 Sodium 136 L Potassium 3.7 Chloride 99 Carbon Dioxide 27 BUN 47 H Creatinine 2.77 H Estimated GFR 17.6 L BUN/Creatinine Ratio 17.0 Glucose 121 H Hemoglobin A1c Calcium 9.3 Magnesium 2.2 Total Bilirubin 0.6 AST 41 H ALT 38 H Alkaline Phosphatase 122 Total Protein 8.3 H Albumin 4.2 Globulin 4.1 Albumin/Globulin Ratio 1.0 Nasal Screen MRSA (PCR) Negative for mrsa 12/14/19 06:40 WBC RBC Hgb Hct MCV MCH MCHC RDW Plt Count Neut % (Auto) Lymph % (Auto) [place] % (Auto) Eos % (Auto) Baso % (Auto) Neut # (Auto) Lymph # (Auto) [place] # (Auto) Eos # (Auto) Baso # (Auto) Sodium Potassium Chloride Carbon Dioxide BUN Creatinine Estimated GFR BUN/Creatinine Ratio Glucose Hemoglobin A1c 5.6 Calcium Magnesium Total Bilirubin AST ALT Alkaline Phosphatase Total Protein Albumin Globulin Albumin/Globulin Ratio Nasal Screen MRSA (PCR) Assessment & Plan Assessment & Plan narrative: Dayanna Mcneill is a 59-year-old female with a past medical history significant for systolic congestive heart failure, resistant hypertensio n with likely hypertensive retinopathy and chronic kidney disease stage III who presented to the ED with worsening shortness of breath and dyspnea on exertion. 1. Acute hypertensive emergency, present on admission. Active. -Patient presented with severe hypertension and initial blood pressure of 247/148 with associated end organ damage with acute kidney injury. Patient denied headache, visual changes, lightheadedness or dizziness, or chest pain. Patient had similar presentation and hospital admission in 08/2019. Patient likely has hypertensive retinopathy as she has had visual changes in the past and had planned Ophthalmology evaluation but missed her appointment due to hospitalization. -Home regimen included lisinopril 20 mg daily and carvedilol 6.25 mg twice daily for which the patient reports she has been compliant with taking these medications. -Differential diagnosis includes: Resistant hypertension versus primary aldosteronism (patient has had hypokalemia in past and has hyperpigmentation of face only) versus renal artery fibromuscular dysplasia. Previously ruled out ne uroendocrine tumor/pheochromocytoma with 5-HIAA and urine metanephrines. -Recommend outpatient renal Doppler ultrasound which is not able to be obtained here. -Limited echocardiogram demonstrated EF 40% with LV contractility slightly less vigorous otherwise unchanged. -Received furosemide 40 mg IV x1 and 1 inch nitropaste in ED. Started and continue amlodipine 5 mg twice daily, carvedilol increased from 6.25 mg to 12.5 mg twice daily, hydralazine increased from 25 mg to 50 mg 3 times daily and add spironolactone 25 mg daily. Discontinue furosemide 40 mg IV twice daily for now as patient appears euvolemic and do not want to further propagate renal insufficiency. May want to consider increasing carvedilol and/or adding an alpha-brayan with clonidine and will plan to discuss with cardiology. -Nicardipine gtt was started overnight due to persistent headache and severe hypertension and was slowly titrated off as allowed with antihypertensives and improved BP. -Consulted the patient's cardiology, Dr. Preston, and we appreciate his time and recommendations. Concern for some medical noncompliance and lack there of follow-up. -Recommend outpatient referral to Nephrology, Cardiology follow-up and ophthalmology evaluation rescheduled. 2. Possible JAMILA versus worsening CKD now stage IV, present on admission. Active. -Chronic kidney disease likely secondary to hypertensive nephropathy with probable nephrosclerosis and ischemic nephropathy with small left kidney. Patient has also taken NSAIDs frequently for daily headaches and was on lisinopril up until hospitalization and likely contributed to worsening renal function. -Initial creatinine 2.7. Baseline creatinine 1.7 during last hospitalization in 08/2019 and previous to this her creatinine was 0.85 in 08/2018. Creatinine re maria fernanda stable at 2.77. Continue to monitor creatinine daily. -Avoid nephrotoxic agents. -Discussed case with on-call Nephrology at [facility] who agreed with workup including: HIV, Hepatitis B and C serologies (as patient reported she experimented with IV drugs when she was a young woman), renin/aldosterone activity, urinalysis (hematuria present MORRIS and complement levels), urine prot ein to creatinine ratio and repeat renal ultrasound. 3. Acute exacerbation of systolic congestive heart failure, present on admission. Resolved. -Patient presented progressive worsening dyspnea on exertion, orthopnea, and shortness of breath now at rest. No peripheral edema. -ProBNP elevated at 6570. -Limited echocardiogram demonstrated EF 40% with LV contractility slightly less vigorous otherwise unchanged. -Received furosemide 40 mg IV x1 and 1 inch nitropaste in ED. Continued furosemide 40 mg IV twice daily yesterday then discontinued as patient appears euvolemic with creatinine trending up slightly. Continued to monitor electrolytes with repletion as needed while diuresing. -Continue strict I&Os and daily weights. Net -3.6 L. -Continue low-sodium and fluid-restricted diet of 1.2 L per day. 4. Acute elevated troponin, secondary to demand ischemia from hypertensive emergency, present on admission. Resolved. -Patient denied chest pain or any ACS symptoms. -EKG demonstrated sinus rhythm with LVH and no acute ischemic changes. Echocardiogram did not demonstrate any wall motion abnormalities. -Initial troponin 0.100 in setting of CKD. Troponin trended down to 0. 078. No need to further trend. 5. Probable fatty liver disease, chronic, present on admission. -Patient has had mild transaminitis since 2017. Initial LFTs: Total bilirubin is 0.6, AST is 54, ALT of 41 and alkaline phosphatase of 136. -Ordered abdominal ultrasound, pending. -Recommended lifestyle modification including diet and exercise. -Consulted dietitian and we appreciate her time and recommendations. Code status: Full code, patient designates her daughter to be her surrogate decision maker. VTE prophylaxis: SQ heparin, SCDs Disposition: Patient likely discharge in several days once hypertension improved and kidney function stable. Quality VTE Deep Vein Thrombosis/Pulmonary Embolism Present on Admission: No
[2019-12-14] MEDS: SPIRONOLACTONE 25 MG TABLET PO (16:11)
[2019-12-14] MEDS: HYDRALAZINE 25 MG TABLET 50 MG PO (16:11)
--- NOTE | 2019-12-14 16:12 | DI.US.S_ITS ---
Caution: Report not yet finalized and possibly incomplete! PROCEDURE: US ABDOMEN COMPLETE INDICATIONS: CKD AND FATTY LIVER TECHNIQUE: Real-time scanning was performed of the abdominal and retroperitoneal organs, with image documentation. COMPARISON: [facility], , US RENAL COMPLETE, 08/30/2019, 15:39. [facility], , US RENAL COMPLETE, 12/14/2019, 15:21. FINDINGS: Liver: Liver is normal in size. The liver is mildly heterogeneous. The liver echogenicity is within normal limits. Gallbladder: No findings of gallstones or sludge are seen. The gallbladder wall is not thickened, measuring 3 mm or less. No specific pericholecystic fluid is seen. The sonographic Thornton sign is negative. Biliary ducts: Intrahepatic bile ducts are non-dilated. Extrahepatic bile duct caliber measures 4 mm. Normal is 6-7 mm or less in diameter, or 10 mm or less post-cholecystectomy. Pancreas: Visualized portions of the pancreas are sonographically normal. Spleen: Spleen is normal in size and homogeneous in echotexture. Kidneys: Kidneys are normal in size and echotexture. Right kidney measures 10.6 cm long; left kidney measures 9.6 cm long. No nephrolithiasis. No solid masses. No syd hydronephrosis is seen. Apparent bilateral extrarenal pelvis can be seen. At the inferior pole of the left kidney, Aorta: Visualized aorta is normal in caliber at less than 3 cm. Iliacs: Proximal common iliac arteries are normal in caliber at less than 2.5 cm. IVC: Intrahepatic inferior vena cava is patent. Miscellaneous: No free abdominal fluid. IMPRESSION: The liver demonstrates mild heterogeneity, with overall normal echogenicity. The gallbladder demonstrates a normal sonographic appearance. No biliary dilatation is seen. Mild bilateral extrarenal pelvis, without hydronephrosis. Incidental note is made of: Simple appearing left renal cyst Dictated by: Jose Goldberg M.D. on 12/14/2019 at 17:11 Approved by: Jose Goldberg M.D. on 12/14/2019 at 17:14
--- NOTE | 2019-12-14 17:17 | PM.CN ---
History of Present Illness Consult details Date Patient Seen: 12/14/19 Chief complaint: congestive heart failure/cant breathe/fatigue Reason for consult: Hypertensive emergency Requesting provider: Rosemary Malik Narrative: Ms. Dayanna Mcneill is a 59-year-old female with a history significant for hypertension, tobacco abuse, history of alcohol abuse, hepatitis-C, history of hypertensive heart disease and congestive heart failure, chronic kidney disease stage III presented to the ER with worsening shortness of breath from last 2 weeks. The patient reports for the last 2 weeks she has had increasing dyspnea on exertion and developing orthopnea. ?clumsiness?. She was having abdominal distention as well. About 2 weeks ago she checked her blood pressure and systolic blood pressure was about 192 and diastolic more than 100 but did not seek medical attention. No chest pain or fever chills or productive sputum or significant palpitation. Upon arrival to the ER the patient has a temperature 90? is 8.7, heart rate 92, blood pressure 247 or 148, respiratory rate of 22 saturating 98% on room air. Chest x-ray showed no syd pulmonary edema with normal cardiac silhouette compared to prior films. Twelve lead EKG is obtained from showing a sinus rhythm at 96 beats per minute with LVH, inverted T-waves in V6 without ectopy or block. On laboratory analysis she has a white count of 8.8, hemoglobin of 12.2, hematocrit of 38.1 and platelets 170. She has a PT of 10.4, INR of 0.9 and a PTT of 23. BUN 47 and a creatinine of 2.70. Her nonfasting glucose is 92. Her total bilirubin is 0.6, AST of 54, ALT of 41 and alkaline phosphatase 136. She has lipase mildly elevated at 341. Her troponin is 0.100 enter BNP is elevated at 6570. Patient was found to be in pulmonary edema due to hypertensive emergency. She was started on nicardipine drip. She underwent 2D echo which showed LV ejection fraction 40% with mild global hypokinesis. Her previous LV ejection fraction was about 45%. At present patient lying on bed. She is feeling much better. She could not tolerate nitrates due to headache. She has history of increased salt intake. Denies any [id number] pain medications or substance abuse like methamphetamine or cocaine. She was taking her medications regularly. Denies any stroke-like symptoms or claudication pain. Meds Home Medications and Allergies Home Medications Medication Instructions Recorded Confirmed Type ufxahfk-[id number]-[id number] 2 tab PO Q6H PRN 12/13/19 12/13/19 History [Excedrin Migraine] carvedilol 6.25 mg PO BID 12/13/19 12/13/19 History lisinopril 20 mg PO DAILY 12/13/19 12/13/19 History Allergies Allergy/AdvReac Type Severity Reaction Status Date / Time No Known Drug Allergies Allergy Verified 08/31/19 09:09 Review of Systems Review of Systems ROS: Yes All systems reviewed with the patient and are negative except as otherwise documented Exam Vital Signs (past 8 hours): - 12/14/19 09:44 12/14/19 09:55 12/14/19 10:00 Temperature Pulse Rate 74 81 73 Respiratory Rate 16 Blood Pressure 150/97 H Pulse Oximetry 97 97 97 12/14/19 10:01 12/14/19 11:00 12/14/19 11:01 Temperature Pulse Rate 75 63 64 Respiratory Rate 15 Blood Pressure 150/96 H 167/105 H Pulse Oximetry 97 97 98 12/14/19 12:00 12/14/19 12:15 12/14/19 12:17 Temperature 97.4 F L Pulse Rate 64 65 Respiratory Rate Blood Pressure 177/111 H 170/109 H 170/104 H Pulse Oximetry 12/14/19 13:30 12/14/19 14:55 12/14/19 15:00 Temperature 96.6 F L Pulse Rate 71 76 71 Respiratory Rate 18 Blood Pressure 176/114 H Pulse Oximetry 98 99 99 12/14/19 16:00 12/14/19 16:07 12/14/19 16:11 Temperature Pulse Rate 68 Respiratory Rate Blood Pressure 177/97 H 177/97 H 177/97 H Pulse Oximetry 97 Oxygen Delivery Method Room Air Oxygen Flow Rate 0 Const General: cooperative Eyes Other: No significant anemia or jaundice Neck Other: No obvious JVD Chest Chest: normal inspection of the chest Resp Other: Bilateral decreased air entry Cardio Other: S1 appears normal, P2 appears normal, no S3, S4 present, no significant murmur GI Other: No obvious pulsatile mass or hepatosplenomegaly Skin Other: No significant pedal edema Neuro Other: No obvious motor or sensory deficit Psych Other: Alert oriented to time place and person Objective Labs Result Diagrams: 12/14/19 06:40 12/14/19 06:40 Labs: Laboratory Results - last 24 hr 12/13/19 12/14/19 12/14/19 22:45 06:40 06:40 WBC 7.3 RBC 4.88 Hgb 12.9 Hct 39.8 MCV 81.6 MCH 26.5 MCHC 32.5 RDW 13.4 Plt Count 157 Neut % (Auto) 50.8 Lymph % (Auto) 32.4 [place] % (Auto) 11.8 Eos % (Auto) 3.7 Baso % (Auto) 1.3 Neut # (Auto) 3700 Lymph # (Auto) 2400 [place] # (Auto) 900 Eos # (Auto) 300 Baso # (Auto) 100 Sodium 136 L Potassium 3.7 Chloride 99 Carbon Dioxide 27 BUN 47 H Creatinine 2.77 H Estimated GFR 17.6 L BUN/Creatinine Ratio 17.0 Glucose 121 H Hemoglobin A1c Calcium 9.3 Magnesium 2.2 Total Bilirubin 0.6 AST 41 H ALT 38 H Alkaline Phosphatase 122 Total Protein 8.3 H Albumin 4.2 Globulin 4.1 Albumin/Globulin Ratio 1.0 Nasal Screen MRSA (PCR) Negative for mrsa 12/14/19 06:40 WBC RBC Hgb Hct MCV MCH MCHC RDW Plt Count Neut % (Auto) Lymph % (Auto) [place] % (Auto) Eos % (Auto) Baso % (Auto) Neut # (Auto) Lymph # (Auto) [place] # (Auto) Eos # (Auto) Baso # (Auto) Sodium Potassium Chloride Carbon Dioxide BUN Creatinine Estimated GFR BUN/Creatinine Ratio Glucose Hemoglobin A1c 5.6 Calcium Magnesium Total Bilirubin AST ALT Alkaline Phosphatase Total Protein Albumin Globulin Albumin/Globulin Ratio Nasal Screen MRSA (PCR) Assessment & Plan Assessment and plan (1) Hypertensive emergency: Status: Acute (2) Acute exacerbation of CHF (congestive heart failure): Status: Acute (3) Hypertensive cardiomyopathy: Status: Acute (4) Acute kidney injury: Status: Acute Assessment & Plan narrative: Patient presented with hypertensive emergency and acute pulmonary edema due to hypertensive heart disease with underlying LV dysfunction. There is evidence of multiple organ damage including renal damage and possible hypertensive retinopathy as well. So far no evidence of a stroke. Patient has some triggers for uncontrolled blood pressure. Her blood pressure has been controlled from long time however patient did not seek medical attention great just a blood pressure medicine. There is an element of alcohol intake as well as increased salt intake. Patient will also benefit with workup to rule out secondary causes including checking aldosterone level as well as workup to rule out renal artery stenosis and pheochromocytoma which appears to be remote possibility. Clinically no radial femoral delay. She is off from nicardipine drip. With nitrates she has significant headache. I reviewed her troponin trends in the hospital. She has chronically elevated troponin I. Most likely troponin elevation is due to underlying hypertensive heart disease and subendocardial ischemia during hypertensive emergency. At present she is not on PHILLIP-inhibitor because of acute kidney injury. She is on carvedilol 12.5 mg twice a day. She was started on hydralazine. Slowly and gradually hydralazine can be increased up to total 300 mg daily. With Aldactone, will recommend close watch on electrolytes. She is on maximum dose of amlodipine. Other option in her case would be to consider clonidine patch 0.1 mg to begin with and slowly titrating up if needed to control blood pressure. Try to avoid very aggressive blood control very fast. Different triggers discussed with the patient. She will also benefit with sleep apnea evaluation as an outpatient. Once her blood pressure gets control, consider perfusion study for CAD risk stratification as well. She will also benefit with Nephrology evaluation. Discussed the plan with Dr. malik. Thanks for the cardiology consult. At this point of time cardiology will sign off. Feel free to call us if needs any further assistance.
[2019-12-14 17:42] LABS: Hepatitis B Surface Antigen NEGATIVE s/c (NEGATIVE)
[2019-12-14 17:54] LABS: HIV 1 & 2 Ab/Ag 4th Gen Combo NEGATIVE (NEGATIVE)
[2019-12-14 18:26] LABS: Hep C Virus Ab w/Reflex Quant REACTIVE s/c (NEGATIVE)
[2019-12-14 18:36] LABS: UR Morphine/Opiate cutoff 300 Negative (Negative); Ur Creatinine Normal (Normal); Ur Specific Gravity Normal (Normal); Urine Amphetamines Negative (Negative); Urine Barbiturates Negative (Negative); Urine Benzodiazepines Negative (Negative); Urine Cocaine Negative (Negative); Urine MDMA Negative (Negative); Urine Methadone Negative (Negative); Urine Oxycodone Negative (Negative); Urine Phencyclidine Negative (Negative); Urine Tetrahydrocannabinol Negative (Negative); Urine Tricyclic Antidepressant Negative (Negative); Urine pH Normal (Normal)
[2019-12-14 18:43] LABS: Creatinine Urine Random 9.4 mg/dL; Protein (Total) Urine Random 19 mg/dL (0-12); Protein Creatinine Ratio Urine 2.02 GRAM/24H
[2019-12-14 18:46] LABS: Urine Methamphetamines Positive (Negative)
--- NOTE | 2019-12-14 22:17 | PC.NURSE ---
2211 Updated provider Alex Gunter on pt BP 182/121, no new orders at this time, will continue to monitor
[2019-12-15] VITALS (42 sets, daily range): BP systolic 149–227; BP diastolic 85–131; PULSE 64–80; RESP 16–20; TEMP 35.9–36.8; O2SAT 91–100
[2019-12-15 02:43] LABS: Hepatitis B Surf AB Quant <3.1 mIU/mL (Immunity>9.9)
--- NOTE | 2019-12-15 06:31 | PC.NURSE ---
Peer Financial Counselor Note-Patient is A/Ox3, cheerful and conversant at midnight, ate a low sodium snack, was compliant with fluid restriction, and receptive to teaching about hypertension and heart failure. Slept throughout the night SB/SR, BP 166/108 and 179/115, denies pain or headaches. In am at 0500, refused am lab draw, said It's too early At 0630, she removed the saline lock to RFA, refuses restart, not currently receptive to rational or teaching.
[2019-12-15 07:13] LABS: Hepatitis B Core IgM Negative (Negative)
[2019-12-15] MEDS: AMLODIPINE 5 MG TABLET PO ×2 (08:29→20:34)
[2019-12-15] MEDS: cloNIDine TTS 0.1 MG PATCH TOP (08:30)
[2019-12-15] MEDS: HYDRALAZINE 25 MG TABLET 50 MG PO ×3 (08:30→18:48)
[2019-12-15] MEDS: SPIRONOLACTONE 25 MG TABLET PO (08:30)
[2019-12-15] MEDS: ASPIRIN EC 81 MG TABLET PO (08:30)
[2019-12-15] MEDS: carvediloL 6.25 MG TABLET 12.5 MG PO (08:30)
[2019-12-15] MEDS: HEPARIN 5,000 UNIT/ML VIAL 5000 UNIT SUBCUT ×2 (08:30→20:34)
[2019-12-15] MEDS: SODIUM CHLORIDE 0.9% FLUSH 10 ML IV ×2 (08:31→20:34)
[2019-12-15 08:43] LABS: Alanine Aminotransferase 38 IU/L (<35); Albumin 4.2 g/dL (3.5-5.0); Alkaline Phosphatase 119 U/L (38-126); Aspartate Aminotransferase 62 IU/L (14-36); BUN Creatinine Ratio 18.8 (6-22); Bilirubin Total 1.1 mg/dL (0.2-1.3); Blood Urea Nitrogen 49 mg/dL (7-17); Calcium 9.3 mg/dL (8.4-10.2); Carbon Dioxide 24 mmol/L (22-32); Chloride 102 mmol/L (98-107); Estimated Glomerular Filt Rate 18.9 mL/min (>60); Globulin 4.2 g/dL (1.7-4.1); Glucose 99 mg/dL (70-100); Magnesium 2.3 mg/dL (1.6-2.3); Sodium 134 mmol/L (137-145); Total Protein 8.4 g/dL (6.3-8.2)
[2019-12-15 08:44] LABS: Add Manual Diff / Slide Review NO; Basophils Absolute Auto 100 /uL (0-100); Basophils Percent Auto 1.2 % (0-2); Eosinophils Absolute Auto 400 /uL (0-450); Eosinophils Percent Auto 5.2 % (2-4); Hematocrit 39.6 % (36-46); Hemoglobin 12.6 g/dL (12.0-16.0); Lymphocytes Absolute Auto 2600 /uL (1100-4500); Lymphocytes Percent Auto 34.9 % (25-40); Mean Corpuscular HGB Conc 31.8 % (30-36); Mean Corpuscular Hemoglobin 26.5 PG (26-34); Mean Corpuscular Volume 83.3 fL (80-100); Monocytes Absolute Auto 800 /uL (0-900); Monocytes Percent Auto 10.7 % (3-14); Neutrophils Absolute Auto 3500 /uL (1500-7000); Platelet Count 159 X10^3/uL (150-400); Red Blood Cell Count 4.75 X10^6/uL (4.0-5.2); Red Cell Distribution Width 13.3 % (11.6-14.8); White Blood Cell Count 7.4 X10^3/uL (4.5-11.0)
[2019-12-15 08:45] LABS: HEMOLYSIS 144 (0-50); Potassium 5.5 mmol/L (3.4-5.1)
[2019-12-15 10:04] LABS: Hepatitis B Core Antibody Positive (Negative)
[2019-12-15] MEDS: ACETAMINOPHEN 325 MG TABLET 650 MG PO ×2 (11:54→22:07)
--- NOTE | 2019-12-15 12:58 | CM.DPC ---
DCP Cont: Discussed patient during team rounds, and team met briefly with patient. She was laying in bed, but awake. According to note, she is to be established with Erin Haas as primary care, for follow. Will need an appointment at discharge. Home is the plan, but some changes regarding her medications, may need to be reviewed prior to discharge. P: DCP to continue to follow, and will be available for any needs. Tamara Hand RN/Head Cashier
--- NOTE | 2019-12-15 15:44 | PM.PN.1 ---
Subjective Subjective Date Patient Seen: 12/15/19 Interval history: Dayanna Mcneill is a 59-year-old female with a past medical history significant for systolic congestive heart failure, resistant hypertension with likely hypertensive retinopathy and chronic kidney disease stage III who presented to the ED with worsening shortness of breath and dyspnea on exertion. The patient is resting comfortably at bedside. She continues to feel significantly better overall. Her blood pressure is improving with average SBP 150-170's and lowest 140's with her current antihypertensive regimen and will continue to titrate medications slowly to control and lower BP. She denies headache, epistasis, lightheadedness or dizziness, chest pain, shortness of breath, or vision changes. Discussed urine toxicology screen which the patient admits to methamphetamine use and discussed this in detail and likelihood that this is primary etiology for resistant hypertension. The patient has no other complaints and denies headache, vision changes, chest pain, shortness of breath at rest, abdominal pain, nausea, vomiting, fever, chills, dysuria, diarrhea or constipation. The patient is voiding without difficulty. She is up ambulating without assistance. Exam Vital Signs (past 8 hours): - 12/15/19 08:30 12/15/19 08:37 12/15/19 09:30 Temperature 97.5 F L Pulse Rate 73 68 73 Respiratory Rate 16 Blood Pressure 180/115 H 149/85 H Pulse Oximetry 100 12/15/19 11:55 12/15/19 12:39 Temperature 97.0 F L Pulse Rate 76 68 Respiratory Rate 16 Blood Pressure 150/102 H 150/102 H Pulse Oximetry 100 Oxygen Delivery Method Room Air Oxygen Flow Rate 0 Narrative Exam Narrative: General: Older female lying in bed in no acute distress, well-developed, well-nourished, appropriately interactive. HEENT: Normocephalic, atraumatic. External ears without defect. Pupils equal, round, and reactive to light. Anicteric sclerae, moist conjunctivae, and no lid lag. Oropharynx free of erythema and cobble stoning with moist mucosa. Neck: Supple with full range of motion. No jugular venous distension. No lymphadenopathy or thyromegaly. Cardiovascular: Regular rate and rhythm without murmurs, rubs, or gallops appreciated. Pulmonary: Clear to auscultation bilaterally without crackles, wheezes, or rhonchi. Normal respiratory effort with no use of accessory muscles. Abdomen: Soft, bowel sounds present, nontender, nondistended. No hepatosplenomegaly or masses appreciated. Extremities: No clubbing, cyanosis, or edema. Skin: Normal temperature, turgor, and texture; no rash, ulcers, or subcutaneous nodules appreciated. Hyperpigmentation of face and body with keloid scarring throughout body. Neurological: Cranial nerves grossly intact. Psychiatric: Normal mood and affect. Alert and oriented to person, place, and time. Objective Labs Result Diagrams: 12/15/19 08:12/15/19 08:20 Labs: Laboratory Results - last 24 hr 12/14/19 12/14/19 12/14/19 00:01 00:01 06:40 WBC RBC Hgb Hct MCV MCH MCHC RDW Plt Count Neut % (Auto) Lymph % (Auto) Laurens % (Auto) Eos % (Auto) Baso % (Auto) Neut # (Auto) Lymph # (Auto) [place] # (Auto) Eos # (Auto) Baso # (Auto) Sodium Potassium Chloride Carbon Dioxide BUN Creatinine Estimated GFR BUN/Creatinine Ratio Glucose Calcium Magnesium Total Bilirubin AST ALT Alkaline Phosphatase Total Protein Albumin Globulin Albumin/Globulin Ratio U Random Total Protein 19 H Urine Creatinine 9.4 Protein/Creatinin Ratio 2.02 U Opiates 300ng/mL cut Negative Ur Oxycodone Screen Negative Urine Methadone Screen Negative Ur Barbiturates Screen Negative U Tricyclic Antidepress Negative Ur Phencyclidine Scrn Negative Ur Amphetamines Screen Negative U Methamphetamines Scrn Positive H Ur MDMA Scrn (Ecstasy) Negative U Benzodiazepines Scrn Negative Urine Cocaine Screen Negative U Marijuana (THC) Screen Negative Hep Bs Antigen Hep Bs Antibody, Quant Hep B Core Total Ab Hep B Core IgM Ab Hepatitis C Antibody HIV 1&2 Ab/P24 Ag 4thGn Negative 12/14/19 12/14/19 12/14/19 06:40 06:40 06:40 WBC RBC Hgb Hct MCV MCH MCHC RDW Plt Count Neut % (Auto) Lymph % (Auto) [place] % (Auto) Eos % (Auto) Baso % (Auto) Neut # (Auto) Lymph # (Auto) [place] # (Auto) Eos # (Auto) Baso # (Auto) Sodium Potassium Chloride Carbon Dioxide BUN Creatinine Estimated GFR BUN/Creatinine Ratio Glucose Calcium Magnesium Total Bilirubin AST ALT Alkaline Phosphatase Total Protein Albumin Globulin Albumin/Globulin Ratio U Random Total Protein Urine Creatinine Protein/Creatinin Ratio U Opiates 300ng/mL cut Ur Oxycodone Screen Urine Methadone Screen Ur Barbiturates Screen U Tricyclic Antidepress Ur Phencyclidine Scrn Ur Amphetamines Screen U Methamphetamines Scrn Ur MDMA Scrn (Ecstasy) U Benzodiazepines Scrn Urine Cocaine Screen U Marijuana (THC) Screen Hep Bs Antigen Hep Bs Antibody, Quant <3.1 L Hep B Core Total Ab Positive A Hep B Core IgM Ab Negative Hepatitis C Antibody HIV 1&2 Ab/P24 Ag 4thGn 12/14/19 12/15/19 12/15/19 06:40 08:20 08:20 WBC 7.4 RBC 4.75 Hgb 12.6 Hct 39.6 MCV 83.3 MCH 26.5 MCHC 31.8 RDW 13.3 Plt Count 159 Neut % (Auto) 48.0 L Lymph % (Auto) 34.9 Laurens % (Auto) 10.7 Eos % (Auto) 5.2 H Baso % (Auto) 1.2 Neut # (Auto) 3500 Lymph # (Auto) 2600 [place] # (Auto) 800 Eos # (Auto) 400 Baso # (Auto) 100 Sodium 134 L Potassium 5.5 H D Chloride 102 Carbon Dioxide 24 BUN 49 H Creatinine 2.61 H Estimated GFR 18.9 L BUN/Creatinine Ratio 18.8 Glucose 99 Calcium 9.3 Magnesium 2.3 Total Bilirubin 1.1 AST 62 H ALT 38 H Alkaline Phosphatase 119 Total Protein 8.4 H Albumin 4.2 Globulin 4.2 H Albumin/Globulin Ratio 1.0 U Random Total Protein Urine Creatinine Protein/Creatinin Ratio U Opiates 300ng/mL cut Ur Oxycodone Screen Urine Methadone Screen Ur Barbiturates Screen U Tricyclic Antidepress Ur Phencyclidine Scrn Ur Amphetamines Screen U Methamphetamines Scrn Ur MDMA Scrn (Ecstasy) U Benzodiazepines Scrn Urine Cocaine Screen U Marijuana (THC) Screen Hep Bs Antigen Negative Hep Bs Antibody, Quant Hep B Core Total Ab Hep B Core IgM Ab Hepatitis C Antibody Reactive H HIV 1&2 Ab/P24 Ag 4thGn Assessment & Plan Assessment & Plan narrative: Dayanna Mcneill is a 59-year-old female with a past medical history significant for systolic congestive heart failure, resistant hypertension with likely hypertensive retinopathy and chronic kidney disease stage III who presented to the ED with worsening shortness of breath and dyspnea on exertion. 1. Acute hypertensive emergency, present on admission. Active. -Patient presented with severe hypertension and initial blood pressure of 247/148 with associated end organ damage with acute kidney injury, headache, elevated troponin, and flash pulm edema/CHF exac. Patient denied headache, visual changes, lightheadedness or dizziness, or chest pain on admission. Patient had similar presentation and hospital admission in 08/2019. Patient likely has hypertensive retinopathy as she has had visual changes in the past and had planned Ophthalmology evaluation but missed her appointment due to hospitalization. -Previous home regimen included lisinopril 20 mg daily and carvedilol 6.25 mg twice daily for which the patient reports she has been compliant with taking these medications. -Differential diagnosis includes: Resistant hypertension due to methamphetamine use versus primary aldosteronism (patient has had hypokalemia in past and has hyperpigmentation of face only) versus renal artery fibromuscular dysplasia. Previously ruled out neuroendocrine tumor/pheochromocytoma with 5-HIAA and urine metanephrines. -Recommend outpatient renal Doppler ultrasound which is not able to be obtained here. -Limited echocardiogram demonstrated EF 40% with LV contractility slightly less vigorous otherwise unchanged. -Nicardipine gtt was started overnight due to persistent headache and severe hypertension and was slowly titrated off as allowed with antihypertensives and improved BP. -Received furosemide 40 mg IV x1 and 1 inch nitropaste in ED. Started and continue amlodipine 5 mg twice daily, carvedilol 12.5 mg twice daily, clonidine 0.1 mg patch weekly, hydralazine 50 mg 3 times daily and plan to increase to 75 mg three times daily tomorrow and received spironolactone 25 mg but held tomorrow due to hyperkalemia likely due to JAMILA on CKD. Discontinued furosemide 40 mg IV twice daily for now as patient appears euvolemic and do not want to further propagate renal insufficiency. May add alpha-brayan tomorrow. -Blood pressure is improving with average SBP 150-170's and lowest 140's with her current antihypertensive regimen and will continue to titrate medications slowly to control and lower BP. -Consulted the patient's cardiology, Dr. Preston, and we appreciate his time and recommendations. Concern for some medical noncompliance and lack there of follow-up. -Recommend outpatient referral to Nephrology, Cardiology follow-up, ophthalmology evaluation rescheduled and sleep study. 2. JAMILA on CKD versus worsening CKD now stage IV, present on admission. Active. -Chronic kidney disease likely secondary to hypertensive nephropathy with probable nephrosclerosis and ischemic nephropathy with small left kidney. Patient has also taken NSAIDs frequently for daily headaches and was on lisinopril up until hospitalization and likely contributed to worsening renal function. Hep C may also be contributing. -Initial creatinine 2.7. Baseline creatinine 1.7 during last hospitalization in 08/2019 and previous to this her creatinine was 0.85 in 08/2018. Creatinine slightly improved at 2.61. Continue to monitor creatinine daily. -Avoid nephrotoxic agents. -Discussed case with on-call Nephrology at [facility] who agreed with workup including: HIV, Hepatitis B and C serologies (as patient reported she experimented with IV drugs when she was a young woman), renin/aldosterone activity, urinalysis (hematuria present MORRIS and complement levels), urine protein to creatinine ratio and repeat renal ultrasound. 3. Acute exacerbation of systolic congestive heart failure, secondary to hypertensive emergency, present on admission. Resolved. -Patient presented progressive worsening dyspnea on exertion, orthopnea, and shortness of breath now at rest. No peripheral edema. -ProBNP elevated at 6570. -Limited echocardiogram demonstrated EF 40% with LV contractility slightly less vigorous otherwise unchanged. -Received furosemide 40 mg IV x1 and 1 inch nitropaste in ED. Received furosemide 40 mg IV x 2 then discontinued as patient appears euvolemic with creatinine trending up slightly. Continue to monitor electrolytes with repletion as needed. -Continue strict I&Os and daily weights. Net -4.9 L. -Continue low-sodium diet. Discontinued fluid-restricted diet. 4. Acute elevated troponin, secondary to demand ischemia from hypertensive emergency, present on admission. Resolved. -Patient denied chest pain or any ACS symptoms. -EKG demonstrated sinus rhythm with LVH and no acute ischemic changes. Echocardiogram did not demonstrate any wall motion abnormalities. -Initial troponin 0.100 in setting of CKD. Troponin trended down to 0. 078. No need to further trend. 5. Fatty and likely Hep C liver disease , chronic, present on admission. -Patient has had mild transaminitis since 2017. Initial LFTs: Total bilirubin is 0.6, AST is 54, ALT of 41 and alkaline phosphatase of 136. -Abdominal ultrasound demonstrated mild heterogeoous echotexture. -Hep C antibody positive and RNA viral load sent out and pending. Patient endorses history of IVDU remotely. -Hep B serologies positive for HBcAB positive and HBSAg and HBsAb negative indicative of possible active Hep B in window period versus chronic inactive carrier. -Recommended lifestyle modification including diet and exercise. Consulted dietitian and we appreciate her time and recommendations. -Recommend referral to GI as outpatient for further evaluation and treatment of liver disease and Hep C and Hep B. -Continue low-sodium diet. 6. Methamphetamine use and remote history of IVDU, chronic, present on admission. -UDS positive for methamphetamines. Patient endorses use intermittently and remote history of IVDU. Counseled patient extensively regarding use and risk of resistant and difficult to treat hypertension, arrhythmia, MD, CVA, etc. Recommended indefinite cessation. -Consulted LADIES SUIT OPERATOR and we appreciate her time and recommendations. Code status: Full code, patient designates her daughter to be her surrogate decision maker. VTE prophylaxis: SQ heparin, SCDs Disposition: Patient likely discharge in several days once hypertension improved and stable and kidney function stable and possibly improved. Quality VTE Deep Vein Thrombosis/Pulmonary Embolism Present on Admission: No
[2019-12-15 16:01] LABS: Bacteria Urine None Seen; RBC Urine None Seen (0-5/HPF); WBC Urine None Seen (0-5/HPF)
[2019-12-15 16:02] LABS: Appearance Urine UA CLEAR; Bilirubin Urine UA NEGATIVE (NEGATIVE); Color Urine UA YELLOW; Glucose Urine UA NEGATIVE (Negative); Ketones Urine UA NEGATIVE (NEGATIVE); Leukocyte Esterase Urine UA NEGATIVE (NEGATIVE); Nitrite Urine UA NEGATIVE (Negative); Occult Blood Urine UA NEGATIVE (Negative); Protein Urine UA 1+ (Negative); Specific Gravity Urine UA <=1.005 (1.000-1.035); Urobilinogen Urine UA 0.2 E.U./dL (0.2)
[2019-12-15 16:08] LABS: Amorphous Sediment Urine 1+; Culture Indicated Urine Cult Not Indicated; Squamous Epithelial Cell Urine 1-5 /HPF (0-5/HPF); pH Urine UA 5.5 (4.5-8.0)
--- NOTE | 2019-12-15 16:50 | DIET.PN ---
Dietary Progress Note Assessment: 59y F admitted for SOB, CHF, renal injury referred to nutrition for HTN, fatty liver, CHF, CKD4. Pt reports being between jobs because of Covid, does not have a car and bikes/bus from her [place] residence, but lives next to hospital. Pt reports headaches every other day r/t high BP, takes Excedrin Migraine. Pt was not taking Lasix and states has never been followed by doctor, receives care via ER but would like to change this. Pt enjoys cooking, does not eat much meat, lost taste for it. Pt is a grazer and eats small amounts of food throughout the day. Pt inquired about switching to No-Salt, which is potassium salt. Bc pt has CKD4 c current potassium of 5.5 H and desire to consume potatoes, encouraged pt not to use this product. Usual Day: B: vanilla yogurt L: leftovers D: potatoes, stir gomez, homemade beans Sn: ice cream/sherbet HT: 160cm WT:76.2kg BMI: 29.8 Labs: current BP 155/93 which pt says is the lowest she has seen it in a long time, K+ 5.5 H, Cr 2.61 H, eGFR 18.9 L Nutrition Diagnosis: Intake of excess mineral (sodium) r/t undesirable food choices aeb pt has CKD4, CHF, HTN c hypertensive emergency and migraines, pt food recall includes seasoning salts, flavoring c pork cuts, and salting at the table. Interventions: 1. Discussed imperative nature of 2g/d sodium restriction for heart and renal function. Encouraged pt that food will taste better after a few weeks weaning off sodium. Helped pt to prioritize removing seasoning salts from home, instructed on hidden sodium in packaged foods, to stop multi-layering food with sodium (ie. ham+canned veg+seasoning salt). Pt feels like she can follow these reccs. 2. Pt's renal fxn is such that limiting protein to 50g/d is indicated, discussed pts preference not to eat meat and how this is a helpful thing as nut/bull based proteins are preferred c CKD 4. 3. Educated pt on importance of Renal f/u and following renal diet based on each set of labs each 3mo. All insurance plans will cover CKD MNT in OP setting, encouraged pt to meet c this RD quarterly to continue working on her diet. 4. Recc phosphorus lab as pt eats beans and dairy frequently. Monitoring/Evaluations: Encourage RD f/u in OP setting when pt schedules c PCP to continue working on diet.
--- NOTE | 2019-12-15 19:33 | PC.NURSE ---
Addendum entered by Oksana Alfaro R.N. 12/15/19 22:08: pt became very tearful and emotional, stating I don't want to , I want to see my grandbabies grow up. This nurse provided education regarding Blood pressure control and caring for herself. After crying pt stated that she had a head ache and wanted some tylenol. Medicated pt as ordered, will continue to monitor. Addendum entered by Oksana Alfaro R.N. 12/15/19 21:31: after 2100 medications BP is 227/131 HR 71, provider MINDI Michael updated on pt status, will continue to monitor Q1hr. Bed low and locked, call light within reach, will continue to monitor. Addendum entered by Oksana Alfaro R.N. 12/15/19 19:36: currently BP is 170/111 HR 66 30 minutes after admin of hydralazine, pt currently asymptomatic. Will continue to monitor. Original Note: Evening shift note A/O x3 pt resting in bed watching tv, BP 153/95 HR 74. Currently pt is saline locked, able to ambulate to bathroom with SB assist. No noted headache, pt states that she feels 100% better. Dr. Pulido at bedside, no further needs at this time, will continue to monitor.
[2019-12-15] MEDS: carvediloL 12.5 MG TABLET PO (20:33)
[2019-12-15] MEDS: DOCUSATE 100 MG CAPSULE PO (20:38)
[2019-12-15] MEDS: HYDRALAZINE 25 MG TABLET PO (22:04)
[2019-12-16] VITALS (26 sets, daily range): BP systolic 85–202; BP diastolic 55–137; PULSE 56–76; RESP 14–28; TEMP 36.2–36.6; O2SAT 96–100
[2019-12-16] MEDS: carvediloL 12.5 MG TABLET PO (03:47)
--- NOTE | 2019-12-16 04:28 | PC.NURSE ---
Informed Rob LO at 0350 about BP of 194/109 and rechecked 189/105, order received to give 1x dose of 12.5mg carvedilol, given. Patient has been sleeping, denies headache when awake. SR 60s-70s.
[2019-12-16 07:28] LABS: Alanine Aminotransferase 39 IU/L (<35); Albumin 4.1 g/dL (3.5-5.0); Alkaline Phosphatase 119 U/L (38-126); Aspartate Aminotransferase 52 IU/L (14-36); Bilirubin Total 0.5 mg/dL (0.2-1.3); Blood Urea Nitrogen 48 mg/dL (7-17); Calcium 9.5 mg/dL (8.4-10.2); Carbon Dioxide 24 mmol/L (22-32); Chloride 101 mmol/L (98-107); Estimated Glomerular Filt Rate 18.5 mL/min (>60); Glucose 100 mg/dL (70-100); HEMOLYSIS < 15 (0-50); Magnesium 2.3 mg/dL (1.6-2.3); Potassium 4.4 mmol/L (3.4-5.1); Sodium 134 mmol/L (137-145); Total Protein 8.1 g/dL (6.3-8.2)
[2019-12-16] MEDS: HEPARIN 5,000 UNIT/ML VIAL 5000 UNIT SUBCUT ×2 (08:32→20:51)
[2019-12-16] MEDS: carvediloL 25 MG TABLET PO (08:33)
[2019-12-16] MEDS: DOCUSATE 100 MG CAPSULE PO (08:33)
[2019-12-16] MEDS: ASPIRIN EC 81 MG TABLET PO (08:33)
[2019-12-16] MEDS: AMLODIPINE 5 MG TABLET PO ×2 (08:33→20:51)
[2019-12-16] MEDS: HYDRALAZINE 25 MG TABLET 75 MG PO (08:33)
[2019-12-16] MEDS: SODIUM CHLORIDE 0.9% FLUSH 10 ML IV ×2 (08:34→20:53)
[2019-12-16] MEDS: MORPHINE 2 MG/ML INJ IV (10:27)
--- NOTE | 2019-12-16 10:33 | PM.EVENT ---
Event Note Date Patient Seen: 12/16/19 Event Note: The patient began having chest pain/pressure sensation this morning and was called to bedside. The patient endorsed chest pressure, back pain, mild nausea, diaphoresis and shortness of breath. Patient received aspirin 81 mg. The patient's systolic blood pressure dropped to 86/55. Titrated up carvedilol from 12.5 to 25 mg which led likely to unopposed alpha with recent methamphetamine use. Gave patient a 500 cc bolus of NS and 2 mg IV morphine. Ordered stat EKG which demonstrated sinus rhythm with LVH and mild T-wave abnormality of inferior leads. Pulses in all extremities equal. Repeat EKG demonstrated resolution. Systolic blood pressure increased to 109 mm Hg and patient's chest pain subsided and she felt much improved. Stat troponin and CK-MB panel demonstrated troponin at 0.063 which is lower than previous troponins. Requested information systems audit manager, Dr. Preston, to bedside for evaluation and he agreed with treatment and requested carvedilol to be decreased back to 12.5 mg twice daily and hydralazine to be lowered back to 50 mg 3 times daily. Attempted to remove clonidine patch which was not on the patient.
[2019-12-16 11:14] LABS: Creatine Kinase 54 U/L (30-135)
[2019-12-16] MEDS: SODIUM CHLORIDE 0.9% 500 ML 1000 ML IV (11:14)
[2019-12-16 11:27] LABS: Troponin I 0.063 ng/mL (0.01-0.034)
--- NOTE | 2019-12-16 12:03 | CM.DPC ---
Addendum entered by Tamara Hand R.N. 12/16/19 14:32: Left a message with Durga Watkins, with [facility], [facility]. In the message, let him know that patient told aids nurse that she has a bicycle and uses the bus system, but does not think that she can make it to [place] to follow up with a marketing consultant. Medicaid transport may be an option, and Durga also may be able to follow up on this at discharge as well. Original Note: DCP Cont: Checked in with patient during team rounds. Dr. Pulido is currently addressing her kidney function, as well as her blood pressures. She is not discharging today. Asked MARION Morales, to evaluate patient for any services, or history of drug use. Patient was pleasant during team rounds. Durga Watkins from [facility] through [facility] called. His phone number is: [phone]. Patient had given permission to give him information. He stated that he has been working with patient to assist with resources, and getting a primary care provider. According to Durga, patient started getting her unemployment benefits at the end of October. It is currently unknown what patient was doing. According to Durga, patient has 4 children, are not very involved. She is single. It is unclear if she has a car at this point, but is within walking distance of the hospital, for she lives on [address]. According to Durga, she has a friend named Nahed Puja, that is supportive, as well. Let him know that patient should be getting established at [facility] with Erin Haas. It will be a matter of setting her up an appointment at discharge. P: DCP to continue to follow. Will see how SPOOLER OPERATOR AUTOMATIC assessment goes, as well. Tamara Hand RN/Paving Contractor
--- NOTE | 2019-12-16 13:48 | PC.NURSE ---
Day Shift Note Pt BP in the 160s systolic prior to BP meds, BP meds given as ordered. At about 0945 pt reported feeling woozy and not right, breathing visibly labored and pt stated it feels like I'm having a panic attack. BP taken and noted to be 121/76. Rechecked shortly after (see VS charted) and BP 93/61, HR 74 and NSR on telemetry, RR 36, SpO2 98% RA. Dr. Pulido notified and order received for 500 ml NS IV bolus which was given, pt continued to report anxiety and exhibit restlessness then reported chest pain/pressure. Dr. Pulido at bedside and EKG x2 done by RT per MD order and 2 mg IV morphine administered at 1027. Dr. Preston called by Dr. Pulido and both at bedside for assessment/EKG review. Pt's BP gradually increased to 134/79 post-bolus and pt reported feeling better at this time and denied chest pain. BP meds adjusted per Dr. Pulido/Dr. Preston - see adjusted orders. After event, pt reported feeling very tired and afraid to fall asleep because of the panic attack, also exhibited forgetfulness regarding the event asking what happened? frequently. Reassurance and reorientation provided. Pt now alert and oriented x3, although still reports fatigue, up walking in room SBA without issue. BP in the 130s systolic with diastolic in the 70-80s. MD updated and 1200 hydralazine dose subsequently held. Call light within reach, using appropriately to make needs known.
--- NOTE | 2019-12-16 17:23 | P.PN_ITS ---
Subjective Subjective Date Patient Seen: 12/16/19 Interval history: I was called today's to see this patient urgently to assist in management as patient developed hypotension with systolic blood pressure about 88 with chest pain, nausea and shortness of breath. Patient was given hydralazi ne 75 mg, carvedilol 25 mg and amlodipine 5 mg this morning. She was on clonidine patch 0.1 mg which fell off. Patient was started on IV fluid and blood pressure got better. On surface EKG sinus rhythm with LVH, anterior lateral T wave inversions which are old but more prominent. At present patient is feeling better. In summary, Ms. Dayanna Mcneill is a 59-year-old female with a history significant for hypertension, tobacco abuse, history of alcohol abuse, hepatitis-C, history of hypertensive heart disease and congestive heart failure, chronic kidney disease stage III presented to the ER on 12/13/2019 with worsening shortness of breath from last 2 weeks. The patient reports for the last 2 weeks she has had increasing dyspnea on exertion and developing orthopnea. ?clum siness?. She was having abdominal distention as well. About 2 weeks ago she checked her blood pressure and systolic blood pressure was about 192 and diastolic more than 100 but did not seek medical attention. No chest pain or fever chills or productive sputum or significant palpitation. Upon arrival to the ER the patient has a temperature 90? is 8.7, heart rate 92, blood pressure 247 or 148, respiratory rate of 22 saturating 98% on room air. Chest x-ray showed no syd pulmonary edema with normal cardiac silhouette compared to prior films. Twelve lead EKG is obtained from showing a sinus rhythm at 96 beats per minute with LVH, inverted T-waves in V6 without ectopy or block. On laboratory analysis she has a white count of 8.8, hemoglobin of 12.2, hematocrit of 38.1 and platelets 170. She has a PT of 10.4, INR of 0.9 and a PTT of 23. BUN 47 and a creatinine of 2.70. Her nonfasting glucose is 92. Her total bilirubin is 0.6, AST of 54, ALT of 41 and alkaline phosphatase 136. She h as lipase mildly elevated at 341. Her troponin is 0.100 enter BNP is elevated at 6570. Patient was found to be in pulmonary edema due to hypertensive emergency. She was started on nicardipine drip. She underwent 2D echo which showed LV ejection fraction 40% with mild global hypokinesis. Her previous LV ejection fraction was about 45%. Patient was started on nicardipine drip. Gradually her blood pressure got better. She was improving. Her blood pressure medication was titrated. Work-up to rule out secondary causes was initiated. During that work-up, urine was positive for methamphetamine. According to the patient she took about 1 and half weeks ago. Exam Vital Signs (past 8 hours): - 12/16/19 09:50 12/16/19 10:10 12/16/19 10:25 Temperature Pulse Rate 74 72 60 Respiratory Rate 28 H 22 Blood Pressure 121/76 93/61 85/55 L Pulse Oximetry 99 96 99 12/16/19 10:30 12/16/19 10:40 12/16/19 12:00 Temperature 97.5 F L Pulse Rate 57 L 67 61 Respiratory Rate 20 20 19 Blood Pressure 109/78 134/79 138/73 Pulse Oximetry 99 98 100 12/16/19 13:00 12/16/19 15:54 Temperature 97.5 F L Pulse Rate 65 64 Respiratory Rate 18 Blood Pressure 132/85 150/94 H Pulse Oximetry 99 Oxygen Delivery Method Room Air Oxygen Flow Rate 0 Const General: cooperative Neck Other: No obvious JVD Chest Chest: normal inspection of the chest Resp Other: No obvious crepitation or rhonchi Cardio Other: S1, S2 appears normal, no S3, LV S4 present GI Other: No obvious hepatosplenomegaly Neuro Other: No obvious motor or sensory deficit Extrem Other: No significant pedal edema Objective Labs Result Diagrams: 12/15/19 08:12/16/19 06:40 Labs: Laboratory Results - last 24 hr 12/16/19 12/16/19 06:40 10:52 Sodium 134 L Potassium 4.4 Chloride 101 Carbon Dioxide 24 BUN 48 H Creatinine 2.66 H Estimated GFR 18.5 L BUN/Creatinine Ratio 18.0 Glucose 100 Calcium 9.5 Magnesium 2.3 Total Bilirubin 0.5 AST 52 H ALT 39 H Alkaline Phosphatase 119 Total Creatine Kinase 54 CK-MB (CK-2) TNP CK-MB (CK-2) Rel Index TNP Troponin I 0.063 H Total Protein 8.1 Albumin 4.1 Globulin 4.0 Albumin/Globulin Ratio 1.0 Assessment & Plan Assessment and plan (1) Hypertensive emergency: Status: Acute (2) Acute exacerbation of CHF (congestive heart failure): Status: Acute (3) LV dysfunction: Status: Acute (4) Iatrogenic hypotension: Status: Acute Assessment & Plan narrative: Patient has episode of hypotension which is likely due to medications which were increased this morning. As I mentioned above she was given hydralazine 75 mg and carvedilol 25 mg and amlodipine 5 mg. Clonidine patch was not found on patient's chest at that time. Initially patient pr esented with hypertensive emergency, pulmonary edema picture likely due to hypertensive emergency with underlying hypertensive heart disease and cardiomyopathy. Patient disclosed that she took methamphetamine about 1 and half weeks ago. Drug abuse likely an contributing factor. Now blood pressure has come back. Her symptoms is resolved. Likely she has subendocardial ischemia during hypotension. She has chronically elevated troponin. She has developed worsening renal insufficiency likely due to hypertensive nephrosclerosis as well. For short run keep the systolic blood pressure about 150-160 range and diastolic around 100. No need for aggressive blood pressure control as she has been having uncontrolled blood pressure for long time. With Aldactone she has developed hyperkalemia. Because of renal insufficiency at this point of time avoid PHILLIP inhibitor. Okay to consider clonidine patch 0.1 mg to decrease the central sympathetic flow and clonidine works well during renal insufficiency. Decreased carvedilol to 12.5 mg twice a day as she has underlying cardiomyopathy however keep a close watch on bradycardia. Decrease hydralazine to 50 mg 3 times a day. She will benefit with drug counseling, dietary counseling and social support. Consider renal artery stenosis work-up. Aldosterone level is pending. Once blood pressure gets better, consider perfusion study for CAD risk stratification. Discussed with Dr. Pulido. Total time for this critical care follow-up at least 35 minutes with more than 50% time [id number] counseling and coordination of care.Follow-up with cardiology as an outpatient. This note was generated utilizing voice recognition software. While attempts have been made to correct mistakes, common errors may occur, including substitution of words that sound phonetically similar to the intended word as well as random substitution errors. Please take this into consideration and use clinical context when necessary. Quality VTE Deep Vein Thrombosis/Pulmonary Embolism Present on Admission: No
--- NOTE | 2019-12-16 17:44 | P.PN_ITS ---
Subjective Subjective Date Patient Seen: 12/16/19 Interval history: Dayanna Mcneill is a 59-year-old female with a past medical history significant for systolic congestive heart failure, resistant hypertension with likely hypertensive retinopathy and chronic kidney disease stage III who presented to the ED with worsening shortness of breath and dyspnea on exertion. The patient is resting comfortably in bed. She reports she feels better than earlier this morning and is chest pain free. She endorses fatigue. Continue to target average SBP 150's. She denies headache, epistasis, lightheadedness or dizziness, chest pain, shortness of breath, or vision changes. She is voiding and eliminating without difficulty. She is up ambulating without assistance. Exam Vital Signs (past 8 hours): - 12/16/19 15:54 12/16/19 17:52 12/16/19 19:06 Temperature 97.5 F L Pulse Rate 64 Respiratory Rate 18 Blood Pressure 150/94 H 150/94 H 158/96 H Pulse Oximetry 99 12/16/19 20:27 Temperature 97.7 F Pulse Rate 66 Respiratory Rate 17 Blood Pressure 173/99 H Pulse Oximetry 100 Oxygen Delivery Method Room Air Oxygen Flow Rate 0 Narrative Exam Narrative: General: Older female lying in bed in no acute distress, well-developed, well- nourished, anxious and fatigued but appropriately interactive. HEENT: Normocephalic, atraumatic. External ears without defect. Pupils equal, round, and reactive to light. Anicteric sclerae, moist conjunctivae, and no lid lag. Oropharynx free of erythema and cobble stoning with moist mucosa. Neck: Supple with full range of motion. No jugular venous distension. No lymphadenopathy or thyromegaly. Cardiovascular: Regular rate and rhythm without murmurs, rubs, or gallops appreciated. Pulmonary: Clear to auscultation bilaterally without crackles, wheezes, or rhonchi. Normal respiratory effort with no use of accessory muscles. Abdomen: Soft, bowel sounds present, nontender, nondistended. No hepatosplenomegaly or masses appreciated. Extremities: No clubbing, cyanosis, or edema. Skin: Normal temperature, turgor, and texture; no rash, ulcers, or subcutaneous nodules appreciated. Hyperpigmentation of face and body with keloid scarring throughout body. Neurological: Cranial nerves grossly intact. Psychiatric: Anxious mood and normal affect. Emotional and stressed. Alert and oriented to person, place, and time. Objective Labs Result Diagrams: 12/15/19 08:20 12/16/19 06:40 Labs: Laboratory Results - last 24 hr 12/16/19 12/16/19 06:40 10:52 Sodium 134 L Potassium 4.4 Chloride 101 Carbon Dioxide 24 BUN 48 H Creatinine 2.66 H Estimated GFR 18.5 L BUN/Creatinine Ratio 18.0 Glucose 100 Calcium 9.5 Magnesium 2.3 Total Bilirubin 0.5 AST 52 H ALT 39 H Alkaline Phosphatase 119 Total Creatine Kinase 54 CK-MB (CK-2) TNP CK-MB (CK-2) Rel Index TNP Troponin I 0.063 H Total Protein 8.1 Albumin 4.1 Globulin 4.0 Albumin/Globulin Ratio 1.0 Assessment & Plan Assessment & Plan narrative: Dayanna Mcneill is a 59-year-old female with a past medical history significant for systolic congestive heart failure, resistant hypertension with likely hypertensive retinopathy and chronic kidney disease stage III who presented to the ED with worsening shortness of breath and dyspnea on exertion. 1. Acute hypertensive emergency, present on admission. Improving -Patient presented with severe hypertension and initial blood pressure of 24 7/148 with associated end organ damage with acute kidney injury, headache, elevated troponin, and flash pulm edema/CHF exac. Patient denied headache, visual changes, lightheadedness or dizziness, or chest pain on admission. Patient had similar presentation and hospital admission in 08/2019. Patient likely has hypertensive retinopathy as she has had visual changes in the past and had planned Ophthalmology evaluation but missed her appointment due to hospitalization. -Previous home regimen included lisinopril 20 mg daily and carvedilol 6.25 mg twice daily for which the patient reports she has been compliant with taking these medications. -Differential diagnosis includes: Resistant hypertension due to methamphetamine use versus primary aldosteronism (patient has had hypokalemia in past and has hyperpigmentation of face only) versus renal artery fibromuscular dysplasia. Previously ruled out neuroendocrine tumor/pheochromocytoma with 5-HIAA and urine metanephrines. -Recommend outpatient renal Doppler ultrasound which is not able to be obtained here and recommend outpatient -Limited echocardiogram demonstrated EF 40% with LV contractility slightly less vigorous otherwise unchanged. -Nicardipine gtt was started overnight due to persistent headache and severe hypertension and was slowly titrated off as allowed with antihypertensives and improved BP. -Received furosemide 40 mg IV x1 and 1 inch nitropaste in ED. Started and continue amlodipine 5 mg twice daily, carvedilol 12.5 mg twice daily, clonidine 0.1 mg patch weekly, hydralazine 50 mg 3 times daily and received spironolactone 25 mg but discontinued due to hyperkalemia likely due to worsening CKD but could consider 12.5 mg. Discontinued furosemide 40 mg IV twice daily for now as patient appears euvolemic and do not want to further propagate renal insufficiency. May consider alpha-brayan. Target SBP 150's. -Consulted the patient's cardiology, Dr. Preston, and we appreciate his time and recommendations. Concern for some medical noncompliance and lack there of follow-up. -Recommend outpatient referral to Nephrology, Cardiology follow-up, ophthalmology evaluation rescheduled and sleep study. 2. JAMILA on CKD versus worsening CKD now stage IV, present on admission. Active. -Chronic kidney disease likely secondary to hypertensive nephropathy with probable nephrosclerosis and ischemic nephropathy with small left kidney. Patient has also taken NSAIDs frequently for daily headaches and was on lisinopril up until hospitalization and likely contributed to worsening renal function. Hep C may also be contributing. -Initial creatinine 2.7. Baseline creatinine 1.7 during last hospitalization in 08/2019 and previous to this her creatinine was 0.85 in 08/2018. Creatinine slightly improved at 2.66. Continue to monitor creatinine daily. -Avoid nephrotoxic agents. -Discussed case with on-call Nephrology at [facility] who agreed with workup including: HIV negative, Hepatitis B and C serologies positive as below (as patient reported she experimented with IV drugs when she was a young woman), renin/aldosterone activity pending, urinalysis which demonstrated proteinuria (hematuria not present so did not order MORRIS and complement levels), urine protein to creatinine ratio which is high at 2.02 but not nephrotic range and cannot use ACEI/ARB due to degree of renal insufficiency. Repeat renal ul trasound demonstrated 3. Acute exacerbation of systolic congestive heart failure, secondary to hyp ertensive emergency, present on admission. Resolved. -Patient presented progressive worsening dyspnea on exertion, orthopnea, and shortness of breath now at rest. No peripheral edema. -ProBNP elevated at 6570. -Limited echocardiogram demonstrated EF 40% with LV contractility slightly less vigorous otherwise unchanged. -Received furosemide 40 mg IV x1 and 1 inch nitropaste in ED. Received furos emide 40 mg IV x 2 then discontinued as patient appears euvolemic with creatinine trending up slightly. Continue to monitor electrolytes with repletion as needed. -Continue strict I&Os and daily weights. Net -5.3 L. -Continue low-sodium diet. Discontinued fluid-restricted diet. 4. Acute elevated troponin, secondary to demand ischemia from hypertensive emergency, present on admission. Resolved. -Patient denied chest pain or any ACS symptoms. -EKG demonstrated sinus rhythm with LVH and no acute ischemic changes. Echocardiogram did not demonstrate any wall motion abnormalities. -Initial troponin 0.100 in setting of CKD. Troponin trended down to 0.078 and now 0.063. No need to further trend. 5. Fatty and likely Hep C liver disease , chronic, present on admission. -Patient has had mild transaminitis since 2017. Initial LFTs: Total bilirubin is 0.6, AST is 54, ALT of 41 and alkaline phosphatase of 136. -Abdominal ultrasound demonstrated mild heterogeoous echotexture. -Hep C antibody positive and RNA viral load sent out and pending. Patient endorses history of IVDU remotely. -Hep B serologies positive for HBcAB positive and HBSAg and HBsAb negative indicative of possible active Hep B in window period versus chronic inactive carrier. -Recommended lifestyle modification including diet and exercise. Consulted dietitian and we appreciate her time and recommendations. -Recommend referral to GI as outpatient for further evaluation and treatment of liver disease and Hep C and Hep B. -Continue low-sodium diet. 6. Methamphetamine use and remote history of IVDU, chronic, present on admission. -UDS positive for methamphetamines. Patient endorses use intermittently and remote history of IVDU. Counseled patient extensively regarding use and risk of resistant and difficult to treat hypertension, arrhythmia, PR, CVA, etc. Recommended indefinite cessation. -Consulted ENVIRONMENTAL ANALYST and we appreciate her time and recommendations. Code status: Full code, patient designates her daughter to be her surrogate decision maker. VTE prophylaxis: SQ heparin, SCDs Disposition: Patient likely discharge possibly tomorrow if hypertension improved and stable and kidney function stable. Quality VTE Deep Vein Thrombosis/Pulmonary Embolism Present on Admission: No
[2019-12-16] MEDS: HYDRALAZINE 25 MG TABLET 50 MG PO (17:52)
[2019-12-16] MEDS: ACETAMINOPHEN 325 MG TABLET 650 MG PO (19:01)
[2019-12-16] MEDS: carvediloL 25 MG TABLET 12.5 MG PO (20:51)
[2019-12-17] VITALS (15 sets, daily range): BP systolic 136–191; BP diastolic 87–120; PULSE 63–72; RESP 17–19; TEMP 36.1–36.9; O2SAT 99–100
--- NOTE | 2019-12-17 05:38 | PC.NURSE ---
Called hospitalist and informed him of pt's B/P being high currently at 178/113 without any symptoms, no order given or received. Will continue to monitor.
[2019-12-17 08:06] LABS: Add Manual Diff / Slide Review NO; Basophils Absolute Auto 100 /uL (0-100); Basophils Percent Auto 1.4 % (0-2); Eosinophils Absolute Auto 200 /uL (0-450); Eosinophils Percent Auto 2.6 % (2-4); Hematocrit 39.3 % (36-46); Hemoglobin 12.7 g/dL (12.0-16.0); Lymphocytes Absolute Auto 2700 /uL (1100-4500); Lymphocytes Percent Auto 29.1 % (25-40); Mean Corpuscular HGB Conc 32.4 % (30-36); Mean Corpuscular Hemoglobin 26.3 PG (26-34); Mean Corpuscular Volume 81.2 fL (80-100); Monocytes Absolute Auto 1200 /uL (0-900); Monocytes Percent Auto 12.9 % (3-14); Neutrophils Absolute Auto 5000 /uL (1500-7000); Platelet Count 172 X10^3/uL (150-400); Red Blood Cell Count 4.84 X10^6/uL (4.0-5.2); Red Cell Distribution Width 13.2 % (11.6-14.8); White Blood Cell Count 9.2 X10^3/uL (4.5-11.0)
--- NOTE | 2019-12-17 08:11 | CM.DPC ---
Addendum entered by Mihaela Agudelo LPN 12/17/19 13:31: Pt is now sitting up in bed after having taken her shower, looking very alert. Durga is here now, seated at bedside and both appear to be having a good conversation. Will check in again tomorrow and be following. Durga confirms that his program is related to [facility] but the Health Home program is also associated with [facility] and other agencies that provide care for medicaid clients. He states that if pt is open to counseling this can be facilitated and other resources that might help pt and that she might accept will be looked at going forward. For today, his focus is on deepening the relationship he has with this client and firming up plan to provide advocacy and support when she goes to her first PCP visit this Friday. Addendum entered by Mihaela Agudelo LPN 12/17/19 12:19: Spoke by phone with Durga. He will be here this afternoon before 1400 if he can get sign off from his manager government to meet face/face with pt. He will escort pt to her appt if she allow same. Pt and SEEMA Castro are updated. Pt is wishing a shower and clean clothing in prep for this visit and appears to be pleased and a bit energized. SEEMA Castro is facilitating. Agreed to meet with Durga and then bring him in to pt to for the face/face introduction. Addendum entered by Mihaela Agudelo LPN 12/17/19 11:18: date of appt with PCP: Friday: 12/21 2:15. [facility] clinic. 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 Since she came into the program during he has never met her but only spoken with her by phone. He states he has talked with her once a month but that is part of his job to help his clients in the community and he will do what he can to facilitate any medical appts that will be needed. Message is left now for Durga Watkins re specifics of this new appt with PCP Diamond Haas and encouraged him to do all he can to see that she keeps this. Addendum entered by Mihaela Agudelo LPN 12/17/19 11:14: Met with pt as planned in Team Bedside Rounds. Dr. Boles will continue to work with pt and is anticipating a dc to home setting by end of the weekend. Have now called the A triage line and spoke with SEEMA Green: pt is set up to see WALLY Haas: 2:15 PM check in for a 2:30 (30 minute) new patient appointment. Will update SEEMA Valdez as well as pt and Dr. Boles. Addendum entered by Mihaela Agudelo LPN 12/17/19 08:20: Left message for Durga Watkins: career and technology education teacher of [employer] (per his vm): cell [phone]. Requested a call back to discuss pt's care needs. Hospitalist Dr. Boles will be seeing pt today. Plan to discuss POC with him and try to get a sense of the d/c date as [facility] triage nurse will likely not be available over the weekend to finalize the appt time with Diamond Haas. Will be seeing pt this morning in Team Bedside Rounds. Original Note: DCP: continued: case received, EMR reviewed. Noted [employer] consult request from Dr. Pulido from yesterday: spoke with MARION Morales, on today, who states she did start the assessment yesterday and will follow up today. (Her notes are pending at this time.).
[2019-12-17 08:17] LABS: Alanine Aminotransferase 41 IU/L (<35); Albumin 4.2 g/dL (3.5-5.0); Albumin Globulin Ratio 1.1 (1.0-2.8); Alkaline Phosphatase 119 U/L (38-126); Aspartate Aminotransferase 50 IU/L (14-36); BUN Creatinine Ratio 20.3 (6-22); Bilirubin Total 0.5 mg/dL (0.2-1.3); Blood Urea Nitrogen 51 mg/dL (7-17); Calcium 9.5 mg/dL (8.4-10.2); Carbon Dioxide 23 mmol/L (22-32); Chloride 103 mmol/L (98-107); Estimated Glomerular Filt Rate 19.8 mL/min (>60); Glucose 95 mg/dL (70-100); HEMOLYSIS < 15 (0-50); Magnesium 2.3 mg/dL (1.6-2.3); Potassium 4.3 mmol/L (3.4-5.1); Sodium 136 mmol/L (137-145); Total Protein 8.2 g/dL (6.3-8.2)
[2019-12-17] MEDS: HEPARIN 5,000 UNIT/ML VIAL 5000 UNIT SUBCUT ×2 (09:32→21:13)
[2019-12-17] MEDS: HYDRALAZINE 25 MG TABLET 50 MG PO ×3 (09:32→17:34)
[2019-12-17] MEDS: carvediloL 25 MG TABLET PO (09:33)
[2019-12-17] MEDS: AMLODIPINE 5 MG TABLET PO ×2 (09:33→21:13)
[2019-12-17] MEDS: ASPIRIN EC 81 MG TABLET PO (09:33)
[2019-12-17] MEDS: SODIUM CHLORIDE 0.9% FLUSH 10 ML IV ×2 (09:34→21:13)
[2019-12-17] MEDS: ACETAMINOPHEN 325 MG TABLET 650 MG PO ×2 (12:12→15:25)
--- NOTE | 2019-12-17 13:46 | P.PN_ITS ---
Subjective Subjective Date Patient Seen: 12/17/19 Time Patient Seen: 13:55 Interval history: Dayanna Mcneill is a 59-year-old female with a past medical history significant for systolic congestive heart failure, resistant hypertension with likely hypertensive retinopathy and chronic kidney disease stage III who presented to the ED with worsening shortness of breath and dyspnea on exertion. She was admitted for hypertensive emergency and is slowly improving. Increased coreg to 25 this AM with good blood pressure response today, however cardiology recommended returning to 12.5 mg tonight and resume clonidine patch at 0.1 mg tonight. The patient is resting comfortably in bed. She reports she feels better than earlier this morning and is chest pain free. She endorses fatigue. Continue to target average SBP 150's. She denies headache, epistasis, lightheadedness or dizziness, chest pain, shortness of breath, or vision changes. She is voiding and eliminating without difficulty. She is up ambulating without assistance. Exam Vital Signs (past 8 hours): - 12/17/19 08:19 12/17/19 09:32 12/17/19 09:33 Temperature 97.4 F L Pulse Rate 67 Respiratory Rate 18 Blood Pressure 179/108 H 179/108 H 179/108 H Pulse Oximetry 99 12/17/19 10:33 12/17/19 12:00 12/17/19 12:12 Temperature 97.3 F L Pulse Rate 66 72 Respiratory Rate 18 Blood Pressure 142/92 H 136/91 H 136/91 H Pulse Oximetry 99 Oxygen Delivery Method Room Air Oxygen Flow Rate 0 Narrative Exam Narrative: General: Older female lying in bed in no acute distress, well- developed, well-nourished, anxious and fatigued but appropriately interactive. HEENT: Normocephalic, atraumatic. External ears without defect. Pupils equal, round, and reactive to light. Anicteric sclerae, moist conjunctivae, and no lid lag. Oropharynx free of erythema and cobble stoning with moist mucosa. Neck: Supple with full range of motion. No jugular venous distension. No lymphadenopathy or thyromegaly. Cardiovascular: Regular rate and rhythm without murmurs, rubs, or gallops appreciated. Pulmonary: Clear to auscultation bilaterally without crackles, wheezes, or rhonchi. Normal respiratory effort with no use of accessory muscles. Abdomen: Soft, bowel sounds present, nontender, nondistended. No hepatosplenomegaly or masses appreciated. Extremities: No clubbing, cyanosis, or edema. Skin: Normal temperature, turgor, and texture; no rash, ulcers, or subcutaneous nodules appreciated. Hyperpigmentation of face and body with keloid scarring throughout body. Neurological: Cranial nerves grossly intact. Psychiatric: Anxious mood and normal affect. Emotional and stressed. Alert and oriented to person, place, and time. Objective Labs Result Diagrams: 12/17/19 07:55 12/17/19 07:55 Labs: Laboratory Results - last 24 hr 12/17/19 12/17/19 07:55 07:55 WBC 9.2 RBC 4.84 Hgb 12.7 Hct 39.3 MCV 81.2 MCH 26.3 MCHC 32.4 RDW 13.2 Plt Count 172 Neut % (Auto) 54.0 Lymph % (Auto) 29.1 Boyle % (Auto) 12.9 Eos % (Auto) 2.6 Baso % (Auto) 1.4 Neut # (Auto) 5000 Lymph # (Auto) 2700 Boyle # (Auto) 1200 H Eos # (Auto) 200 Baso # (Auto) 100 Sodium 136 L Potassium 4.3 Chloride 103 Carbon Dioxide 23 BUN 51 H Creatinine 2.51 H Estimated GFR 19.8 L BUN/Creatinine Ratio 20.3 Glucose 95 Calcium 9.5 Magnesium 2.3 Total Bilirubin 0.5 AST 50 H ALT 41 H Alkaline Phosphatase 119 Total Protein 8.2 Albumin 4.2 Globulin 4.0 Albumin/Globulin Ratio 1.1 Assessment & Plan Assessment & Plan narrative: Dayanna Mcneill is a 59-year-old female with a past medical history significant for systolic congestive heart failure, resistant hypertension with likely hypertensive retinopathy and chronic kidney disease stage III who presented to the ED with worsening shortness of breath and dyspnea on exertion. She was admitted for hypertensive emergency and is slowly improving. 1. Acute hypertensive emergency, present on admission. Improving -Patient presented with severe hypertension and initial blood pressure of 247/148 with associated end organ damage with acute kidney injury, headache, elevated troponin, and flash pulm edema/CHF exac. Patient denied headache, visual changes, lightheadedness or dizziness, or chest pain on admission. Patient had similar presentation and hospital admission in 08/2019. Patient likely has hypertensive retinopathy as she has had visual changes in the past and had planned Ophthalmology evaluation but missed her appointment due to hospitalization. -Previous home regimen included lisinopril 20 mg daily and carvedilol 6.25 mg twice daily for which the patient reports she has been compliant with taking these medications. -Differential diagnosis includes: Resistant hypertension due to methamphetamine use versus primary aldosteronism (patient has had hypokalemia in past and has hyperpigmentation of face only) versus renal artery fibromuscular dysplasia. Previously ruled out neuroendocrine tumor/pheochromocytoma with 5-HIAA and urine metanephrines. -Recommend outpatient renal Doppler ultrasound which is not able to be obtained here and recommend outpatient evaluation. -Limited echocardiogram demonstrated EF 40% with LV contractility slightly less vigorous otherwise unchanged. -Nicardipine gtt was started due to persistent headache and severe hypertension and was slowly titrated off as allowed with antihypertensives and improved BP. -Received furosemide 40 mg IV x1 and 1 inch nitropaste in ED. Started and continue amlodipine 5 mg twice daily, carvedilol 12.5 mg twice daily, clonidine 0.1 mg patch weekly, hydralazine 75 mg 3 times daily and received spironolactone 25 mg but discontinued due to hyperkalemia likely due to worsening CKD but could consider 12.5 mg. Discontinued furosemide 40 mg IV twice daily for now as patient appears euvolemic and do not want to further propagate renal insufficien cy. \Target SBP 150's. Initially blood pressure dropped iatrogenically due to above medications and have resumed coreg 12.5, amlodipine and hydralazine at 50 mg TID. Will add on medications slowly at this time to avoid possible hypotension. -Consulted the patient's cardiology, Dr. Preston, and we appreciate his time and recommendations. Concern for some medical noncompliance or methamphetamine use and lack of follow-up. -Recommend outpatient referral to Nephrology, Cardiology follow-up, ophth almology evaluation rescheduled and sleep study. 2. JAMILA on CKD versus worsening CKD now stage IV, present on admission. Active. -Chronic kidney disease likely secondary to hypertensive nephropathy with probable nephrosclerosis and ischemic nephropathy with small left kidney. Patient has also taken NSAIDs frequently for daily headaches and was on lisinopril up until hospitalization and likely contributed to worsening renal function. Hep C may also be contributing. -Initial creatinine 2.7. Baseline creatinine 1.7 during last hospitalization in 08/2019 and previous to this her creatinine was 0.85 in 08/2018. Creatinine slightly improved at 2.51. Continue to monitor creatinine daily. -Avoid nephrotoxic agents. -Discussed case with on-call Nephrology at [facility] who agreed wit h workup including: HIV negative, Hepatitis B and C serologies positive as below (as patient reported she experimented with IV drugs when she was a young woman), renin/aldosterone activity pending, urinalysis which demonstrated proteinuria (hematuria not present so did not order MORRIS and complement levels), urine protein to creatinine ratio which is high at 2.02 but not nephrotic range and cannot use ACEI/ARB due to degree of renal insufficiency. Repeat renal ultrasound demonstrated 3. Acute exacerbation of systolic congestive heart failure, secondary to hypertensive emergency, present on admission. Resolved. -Patient presented progressive worsening dyspnea on exertion, orthopnea, and gerardo rtness of breath now at rest. No peripheral edema. -ProBNP elevated at 6570. -Limited echocardiogram demonstrated EF 40% with LV contractility slightly less vigorous otherwise unchanged. -Received furosemide 40 mg IV x1 and 1 inch nitropaste in ED. Received furosemide 40 mg IV x 2 then discontinued as patient appears euvolemic with creatinine trending up slightly. Continue to monitor electrolytes with repletion as needed. -Continue strict I&Os and daily weights. Net -5.3 L. -Continue low-sodium diet. Discontinued fluid-restricted diet. 4. Acute elevated troponin, secondary to demand ischemia from hypertensive emergency, present on admission. Resolved. -Patient denied chest pain or any ACS symptoms. -EKG demonstrated sinus rhythm with LVH and no acute ischemic changes. Echocardiogram did not demonstrate any wall motion abnormalities. -Initial troponin 0.100 in setting of CKD. Troponin trended down to 0.078 and now 0.063. No need to further trend. 5. Fatty and likely Hep C liver disease , chronic, present on admission. -Patient has had mild transaminitis since 2017. Initial LFTs: Total bilirubin is 0.6, AST is 54, ALT of 41 and alkaline phosphatase of 136. -Abdominal ultrasound demonstrated mild heterogeoous echotexture. -Hep C antibody positive and RNA viral load sent out and pending. Patient endorses history of IVDU remotely. -Hep B serologies positive for HBcAB positive and HBSAg and HBsAb negative indicative of possible active Hep B in window period versus chronic inactive carrier. -Recommended lifestyle modification including diet and exercise. Consulted diet itian and we appreciate her time and recommendations. -Recommend referral to GI as outpatient for further evaluation and treatment of liver disease and Hep C and Hep B. -Continue low-sodium diet. 6. Methamphetamine use and remote history of IVDU, chronic, present on admission. -UDS positive for methamphetamines. Patient endorses use intermittently and remote history of IVDU. Counseled patient extensively regarding use and risk of resistant and difficult to treat hypertension, arrhythmia, [place], CVA, etc. Recommended indefinite cessation. -Consulted SENIOR PROJECT CONTROLS SPECIALIST and we appreciate her time and recommendations. Code status: Full code, patient designates her daughter to be her surrogate decision maker. VTE prophylaxis: SQ heparin, SCDs Disposition: Patient possible discharge tomorrow if hypertension improved and stable and kidney function stable. Quality VTE Deep Vein Thrombosis/Pulmonary Embolism Present on Admission: No
--- NOTE | 2019-12-17 14:43 | CM.SWNOTE ---
Late Entry for 12/16/19: HOME VISITOR Consult due to pt's admitted methamphetamine use and to determine any community resources and supports needed. HOME VISITOR met bedside with pt and explained role and pt quite drowsy but willing to participate in discussion. Pt states that she lives alone and has a boyfriend who lives in [facility] but utilizes a bicycle for transportation and boyfriend has been bedside most evenings with pt and this is when she feels most supported and safe. Pt endorses use of meth recently stating she has been afraid of falling asleep and then never waking back up. Pt seemed to express her fear of dying in her sleep has been more recent and therefore she does not lay down but tries to stay awake by sitting up. Pt not very clear on how often or how long she has been using meth to self medicate but does state that she has always seen spiritual things, figures of people briefly and they always are carrying a message that I can interpret. Pt denies that these are delusions or hallucinations and states that she was adopted and raised by very spiritual parents that she has discussed this with before without concern. Pt states they do not worry or frighten her. Pt denies that they are related to drug use as she began having her spiritual encounters from a young age without any use of drugs. Pt seemed to have some tangential thought processes but was able to participate in discussion but difficult to get clear specific information from her. SW inquired about CD tx or MH counseling as she expresses significant concern with her medical complications and ongoing medical follow up and worry about being alone once she leaves the hospital. Pt states she does not have any hx of CD tx or MH counseling and currently feels that she will get the most support from her boyfriend and declines community resources for this at this time and she feels that she is more aware of her need to remain as healthy as she can and follow medical recommendations for follow up at d/c. Per JAY Harrell, pt just recently established with [facility] through [facility] for case management on coordinating medical and health needs in the community and JAY has been in contact with [facility] caser Durga Watkins. JAY and Durga Watkins met bedside with pt today and Durga will be able to help coordinate follow up appointments with the pt in the community and will be present at pt's first PCP appointment this coming week with Vahid Haas and will remain involved and can help enroll pt in [facility] CD/MH services if pt agreeable. Plan: DCP to continue plans for discharge back home likely tomorrow if pt remains stable and Durga with [facility] with follow the pt in the community and attend her first PCP appointment this coming week for ongoing medical and possible MH needs. MARION Frey
--- NOTE | 2019-12-17 14:43 | PC.NURSE ---
PT REFUSING TO WEAR TELE AFTER HER SHOWER- SHE HAS BEEN IN SINUS RHYTHMSINCE ADMIT- - UPDATE TO MD , HE WOULD PREFER SHE WEAR IT BUT IS AWARE THAT SHE IS REFUSING AT THIS TIME
[2019-12-17] MEDS: carvediloL 25 MG TABLET 12.5 MG PO (21:14)
--- NOTE | 2019-12-17 21:27 | PC.NURSE ---
2100- Patient BP remains at target. No c/o headache since medicated for it earlier. Patient in good spirits and verbalizes she is feeling much better. Will monitor.
[2019-12-18] VITALS (12 sets, daily range): BP systolic 139–208; BP diastolic 86–116; PULSE 62–87; RESP 14–20; TEMP 36.2–37.3; O2SAT 98–100
[2019-12-18 05:40] LABS: Alanine Aminotransferase 40 IU/L (<35); Albumin 3.9 g/dL (3.5-5.0); Alkaline Phosphatase 124 U/L (38-126); Aspartate Aminotransferase 50 IU/L (14-36); BUN Creatinine Ratio 21.8 (6-22); Bilirubin Total 0.4 mg/dL (0.2-1.3); Blood Urea Nitrogen 56 mg/dL (7-17); Calcium 9.4 mg/dL (8.4-10.2); Carbon Dioxide 23 mmol/L (22-32); Chloride 104 mmol/L (98-107); Estimated Glomerular Filt Rate 19.2 mL/min (>60); Glucose 115 mg/dL (70-100); HEMOLYSIS < 15 (0-50); Potassium 4.4 mmol/L (3.4-5.1); Sodium 136 mmol/L (137-145); Total Protein 7.9 g/dL (6.3-8.2)
[2019-12-18] MEDS: NIFEdipine 30 MG TAB ER PO (05:58)
[2019-12-18] MEDS: HEPARIN 5,000 UNIT/ML VIAL 5000 UNIT SUBCUT ×2 (08:53→21:58)
[2019-12-18] MEDS: ASPIRIN EC 81 MG TABLET PO (08:53)
[2019-12-18] MEDS: SODIUM CHLORIDE 0.9% FLUSH 10 ML IV ×2 (08:53→22:00)
[2019-12-18] MEDS: carvediloL 25 MG TABLET 12.5 MG PO ×2 (08:53→21:59)
[2019-12-18] MEDS: HYDRALAZINE 25 MG TABLET 50 MG PO ×3 (08:53→16:49)
[2019-12-18] MEDS: cloNIDine TTS 0.1 MG PATCH TOP (08:54)
[2019-12-18] MEDS: ACETAMINOPHEN 325 MG TABLET 650 MG PO (12:45)
--- NOTE | 2019-12-18 14:04 | P.PN_ITS ---
Subjective Subjective Date Patient Seen: 12/18/19 Time Patient Seen: 14:04 Interval history: Dayanna Mcneill is a 59-year-old female with a past medical history significant for systolic congestive heart failure, resistant hypertension with likely hypertensive retinopathy and chronic kidney disease stage III who presented to the ED with worsening shortness of breath and dyspnea on exertion. She was admitted for hypertensive emergency and is slowly improving, she was improved yesterday afternoon but overnight again became hypertensive with blood pressures in the 200s systolic. She continues to feel back to her baseline with regards to shortness of breath and dyspnea on exertion. She does endorsse some snoring, daytime sleepiness, and waking up at night at times gasping. Will evaluate tonight with continuous pulse oximetry to see if CHARLES is contributing to worsened hypertension at night. She also had beta brayan dose reduced overnight and was started on clonidine patch this morning per cardiology recommendations. Her amlodipine was discontinued and she was started on nifedipine this morning. Will make sure no overnight spikes of her blood pressure on current regimen again and hopefully will be able to discharge tomorrow. Exam Vital Signs (past 8 hours): - 12/18/19 09:00 12/18/19 11:02 Temperature 99.2 F Pulse Rate 67 62 Respiratory Rate 19 17 Blood Pressure 208/116 H 139/86 Pulse Oximetry 99 Oxygen Delivery Method Room Air Oxygen Flow Rate 0 Narrative Exam Narrative: General: Older female lying in bed in no acute distress, well-developed, well-nourished, anxious and fatigued but appropriately interactive. HEENT: Normocephalic, atraumatic. External ears without defect. Pupils equal, round, and reactive to light. Anicteric sclerae, moist conjunctivae, and no lid lag. Oropharynx free of erythema and cobble stoning with moist mucosa. Neck: Supple with full range of motion. No jugular venous distension. No lymphadenopathy or thyromegaly. Cardiovascular: Regular rate and rhythm without murmurs, rubs, or gallops appreciated. Pulmonary: Clear to auscultation bilaterally without crackles, wheezes, or rhonchi. Normal respiratory effort with no use of accessory muscles. Abdomen: Soft, bowel sounds present, nontender, nondistended. No hepatosplenomegaly or masses appreciated. Extremities: No clubbing, cyanosis, or edema. Skin: Normal temperature, turgor, and texture; no rash, ulcers, or subcutaneous nodules appreciated. Hyperpigmentation of face and body with keloid scarring throughout body. Neurological: Cranial nerves grossly intact. Psychiatric: Anxious mood and normal affect. Emotional and stressed. Alert and oriented to person, place, and time. Objective Labs Result Diagrams: 12/17/19 07:55 12/18/19 04:38 Labs: Laboratory Results - last 24 hr 12/18/19 04:38 Sodium 136 L Potassium 4.4 Chloride 104 Carbon Dioxide 23 BUN 56 H Creatinine 2.57 H Estimated GFR 19.2 L BUN/Creatinine Ratio 21.8 Glucose 115 H Calcium 9.4 Total Bilirubin 0.4 AST 50 H ALT 40 H Alkaline Phosphatase 124 Total Protein 7.9 Albumin 3.9 Globulin 4.0 Albumin/Globulin Ratio 1.0 Assessment & Plan Assessment & Plan narrative: Dayanna Mcneill is a 59-year-old female with a past medical history significant for systolic congestive heart failure, resistant hypertension with likely hypertensive retinopathy and chronic kidney disease stage III who presented to the ED with worsening shortness of jace ath and dyspnea on exertion. She was admitted for hypertensive emergency and is slowly improving. 1. Acute hypertensive emergency, present on admission. Improving -Patient presented with severe hypertension and initial blood pressure of 247/148 with associated end organ damage with acute kidney injury, headache, elevated troponin, and flash pulm edema/CHF exac. Patient denied headache, visual changes, lightheadedness or dizziness, or chest pain on admission. Patient had similar presentation and hospital admission in 08/2019. Patient likely has hypertensive retinopathy as she has had visual changes in the past and had planned Ophthalmology evaluation but missed her appointment due to ho spitalization. -Previous home regimen included lisinopril 20 mg daily and carvedilol 6.25 mg twice daily for which the patient reports she has been compliant with taking these medications. -Differential diagnosis includes: Resistant hypertension due to methamphetamine use versus primary aldosteronism (patient has had hypokalemia in past and has hyperpigmentation of face only) versus renal artery fibromuscular dysplasia. Previously ruled out neuroendocrine tumor/pheochromocytoma with 5-HIAA and urine metanephrines. -Recommend outpatient renal Doppler ultrasound which is not able to be obtained here and recommend outpatient evaluation. -Limited echocardiogram demonstrated EF 40% with LV contractility slightly less vigorous otherwise unchanged. -Nicardipine gtt was started due to persistent headache and severe hypertension and was slowly titrated off as allowed with antihypertensives and improved BP. -Received furosemide 40 mg IV x1 and 1 inch nitropaste in ED. Started and continue amlodipine 5 mg twice daily, carvedilol 12.5 mg twice daily, clonidine 0.1 mg patch weekly, hydralazine 75 mg 3 times daily and received spironolactone 25 mg but discontinued due to hyperkalemia likely due to worsening CKD but could consider 12.5 mg. Discontinued furosemide 40 mg IV twice daily for now as patient appears euvolemic and do not want to further propagate renal insufficiency. \Target SBP 150's. Initially blood pressure dropped iatrogenically due to above medications and returned to coreg 12.5, amlodipine and hydralazine at 50 mg TID. Will continue to add on medications slowly at this time to avoid possible hypotension. -Current medications: clonidine 0.1 mg patch weekly, coreg 12.5 mg BID, nifedipine 30 mg daily, hydralazine 50 mg PO TID. -Consulted the patient's cardiology, Dr. Preston, and we appreciate his time and recommendations. Concern for some medical noncompliance or methamphetamine use and lack of follow-up. -Recommend outpatient referral to Nephrology, Cardiology follow-up, ophthalmology evaluation rescheduled and sleep study. -overnight pulse oximetry monitoring tonight for possible CHARLES. 2. JAMILA on CKD versus worsening CKD now stage IV, present on admission. Active. -Chronic kidney disease likely secondary to hypertensive nephropathy with probable nephrosclerosis and ischemic nephropathy with small left kidney. Patient has also taken NSAIDs frequently for daily headaches and was on lisinopril up until hospitalization and likely contributed to worsening renal function. Hep C may also be contributing. -Initial creatinine 2.7. Baseline creatinine 1.7 during last hospitalization in 08/2019 and previous to this her creatinine was 0.85 in 08/2018. Creatinine has been stable around 2.5. Continue to monitor creatinine daily. -Avoid nephrotoxic agents. -Discussed case with on-call Nephrology at [facility] who agreed with workup including: HIV negative, Hepatitis B and C serologies positive as below (as patient reported she experimented with IV drugs when she was a young woman), renin/aldosterone activity pending, urinalysis which demonstrated proteinuria (hematuria not present so did not order MORRIS and complement levels), urine protein to creatinine ratio which is high at 2.02 but not nephrotic range and cannot use ACEI/ARB due to degree of renal insufficiency. Repeat renal ultrasound performed. 3. Acute exacerbation of systolic congestive heart failure, secondary to hypertensive emergency, present on admission. Resolved. -Patient presented progressive worsening dyspnea on exertion, orthopnea, and shortness of breath now at rest. No peripheral edema. -ProBNP elevated at 6570. -Limited echocardiogram demonstrated EF 40% with LV contractility slightly less vigorous otherwise unchanged. -Received furosemide 40 mg IV x1 and 1 inch nitropaste in ED. Received furosemide 40 mg IV x 2 then discontinued as patient appears euvolemic with creatinine trending up slightly. Continue to monitor electrolytes with repletion as needed. -Continue strict I&Os and daily weights. Net -5.3 L. -Continue low-sodium diet. Discontinued fluid-restricted diet. 4. Acute elevated troponin, secondary to demand ischemia from hypertensive emergency, present on admission. Resolved. -Patient denied chest pain or any ACS symptoms. -EKG demonstrated sinus rhythm with LVH and no acute ischemic changes. Echocardiogram did not demonstrate any wall motion abnormalities. -Initial troponin 0.100 in setting of CKD. Troponin trended down to 0.078 and now 0.063. No need to further trend. 5. Fatty and likely Hep C liver disease , chronic, present on admission. -Patient has had mild transaminitis since 2017. Initial LFTs: Total bilirubin is 0.6, AST is 54, ALT of 41 and alkaline phosphatase of 136. -Abdominal ultrasound demonstrated mild heterogeoous echotexture. -Hep C antibody positive and RNA viral load sent out and pending. Patient endorses history of IVDU remotely. -Hep B serologies positive for HBcAB positive and HBSAg and HBsAb negative indicative of possible active Hep B in window period versus chronic inactive carrier. -Recommended lifestyle modification including diet and exercise. Consulted dietitian and we appreciate her time and recommendations. -Recommend referral to GI as outpatient for further evaluation and treatment of liver disease and Hep C and Hep B. -Continue low-sodium diet. 6. Methamphetamine use and remote history of IVDU, chronic, present on admission. -UDS positive for methamphetamines. Patient endorses use intermittently and remote history of IVDU. Counseled patient extensively regarding use and risk of resistant and difficult to treat hypertension, arrhythmia, [place], CVA, etc. Recommended indefinite cessation. -Consulted RIG MECHANIC and we appreciate her time and recommendations. Code status: Full code, patient designates her daughter to be her surrogate decision maker. VTE prophylaxis: SQ heparin, SCDs Disposition: Patient possible discharge tomorrow if hypertension improved and stable and kidney function stable. Quality VTE Deep Vein Thrombosis/Pulmonary Embolism Present on Admission: No
[2019-12-19 01:10] VITALS: BP 167/97
[2019-12-19 04:58] VITALS: BP 161/83; PULSE 78; RESP 18; TEMP 36.4; O2SAT 99
[2019-12-19 05:24] LABS: Alanine Aminotransferase 37 IU/L (<35); Albumin 3.9 g/dL (3.5-5.0); Alkaline Phosphatase 120 U/L (38-126); Aspartate Aminotransferase 44 IU/L (14-36); Bilirubin Total 0.4 mg/dL (0.2-1.3); Blood Urea Nitrogen 58 mg/dL (7-17); Calcium 9.2 mg/dL (8.4-10.2); Carbon Dioxide 22 mmol/L (22-32); Chloride 103 mmol/L (98-107); Estimated Glomerular Filt Rate 18.6 mL/min (>60); Globulin 3.8 g/dL (1.7-4.1); Glucose 123 mg/dL (70-100); HEMOLYSIS < 15 (0-50); Potassium 4.2 mmol/L (3.4-5.1); Sodium 134 mmol/L (137-145); Total Protein 7.7 g/dL (6.3-8.2)
[2019-12-19 09:00] VITALS: BP 166/129; PULSE 70; RESP 19; TEMP 36.2; O2SAT 100
[2019-12-19] MEDS: carvediloL 25 MG TABLET 12.5 MG PO (09:07)
[2019-12-19] MEDS: ASPIRIN EC 81 MG TABLET PO (09:08)
[2019-12-19] MEDS: HYDRALAZINE 25 MG TABLET 50 MG PO (09:08)
[2019-12-19] MEDS: NIFEdipine 30 MG TAB ER PO (09:09)
--- NOTE | 2019-12-19 12:01 | PC.NURSE ---
Discharge note: 1150: Discharge instructions given to patient, discussed importance of F/U with Vahid LO on 12/21 at 1425, cardiology, ophthalmology, sleep study. Discussed importance of new medications, side effects, and adherence. Educated regarding DASH diet, s/sx of stroke, and blood pressure monitoring at home. Patient verbalized understanding of instructions. Home via private vehicle with belongings.
--- NOTE | 2019-12-19 16:44 | CM.DPC ---
DCP: continued: Dr. Boles stated this morning that pt was now ready for d/c to home and with her followup appt with PCP: Diamond Haas on Thursday 12/21. Checked in with pt and found her up and dressed and waiting for her ride. She confirmed she had her appt information on the d/c paperwork and said my advocate Durga is going to go with me to the appt. Left a message for Durga Watkins: [facility] critical care physician: [phone] re the d/c today. DC summary is not yet available. He is aware that he can call here and have it faxed to the agency if he needs it for his followup care with pt.
--- NOTE | 2019-12-19 16:46 | PM.DS.1 ---
History of Present Illness History of Present Illness Date Patient Seen: 12/19/19 Time Patient Seen: 08:30 Chief complaint: congestive heart failure/cant breathe/fatigue Narrative: As per WALLY Tate: Ms. Dayanna Mcneill is a 59-year-old female with a history significant for hypertension, chronic kidney disease stage III and congestive heart failure who presents to the ER with complaints of shortness of breath. The patient reports for the last 2 weeks she has had increasing dyspnea on exertion and developing orthopnea. She also reports that she does not have peripheral edema however when she has worsening heart failure she has abdominal distension. She complains an associated headache that is intermittent but denies nausea or vomiting or visual changes. The patient was admitted to [facility] on 08/2906/17/2019 under similar circumstances. At that time she had echocardiogram completed which reflect reduced ejection fraction of 45% with global hypokinesis more prominent at the base. The patient's S that she was previously on diuretics but her doctor told her that she did not need them any longer. She reports she takes only 2 medications including carvedilol and lisinopril. The patient reports no recent illness, fevers or chills and no recent COVID-19 exposures. She denies nasal congestion or sore throat. She has had no chest pain however endorses occasional palpitations. She has shortness of breath as above and denies cough or wheezing. She reports abdominal bloating and denies complaints of abdominal pain, nausea vomiting or changes in bowel or bladder habits. The patient says she has frequent falls related to ?clumsiness?. Upon arrival to the ER the patient has a temperature 90? is 8.7, heart rate 92, blood pressure 247 or 148, respiratory rate of 22 saturating 98% on room air. Chest x-ray shows no syd pulmonary edema with normal cardiac silhouette compared to prior films. Twelve lead EKG is obtained from showing a sinus rhythm at 96 beats per minute with LVH, inverted T-waves in V6 without ectopy or block. On laboratory analysis she has a white count of 8.8, hemoglobin of 12.2, hematocrit of 38.1 and platelets 170. She has a PT of 10.4, INR of 0.9 and a PTT of 23. Her electrolytes are all within normal range and has a BUN 47 and a creatinine of 2.70. Her nonfasting glucose is 92. Her total bilirubin is 0.6, AST of 54, ALT of 41 and alkaline phosphatase 136. She has lipase mildly elevated at 341. Her troponin is 0.100 enter BNP is elevated at 6570. Dr. Robins on-call Cardiology in patient's personal medicinal plant picker is consulted through the ED with recommendations to control blood pressure diuresed with Lasix and trend troponins. The patient is admitted to the medicine service for hypertensive urgency and exacerbation of chronic heart failure. Discharge Providers Provider Date of admission: 12/13/19 04:30 Discharge Date: 12/19/19 Primary care physician: WALLY Larkin Consults: 12/13/19 04:46 Consult to Dietitian, Adult Routine Comment: Reason For Exam: Exacerbation of heart failure Consult to Discharge Planning Routine Comment: 12/14/19 13:28 Consult to Physician Routine Comment: Consulting Provider: Terrence Preston Reason for consultation: Hypertensive emergency with JAMILA and resistant hypertension Has provider been notified: Yes 12/14/19 15:54 Consult to Dietitian, Adult Routine Comment: Reason For Exam: hypertension, CHF, Fatty liver Discharge provider: Phi Boles DO Summary Hospital Course Discharge Diagnosis: Please see hospital course by problem list noted below. Hospital Course: Dayanna Mcneill is a 59-year-old female with a past medical history significant for systolic congestive heart failure, resistant hypertension with likely hypertensive retinopathy and chronic kidney disease stage III who presented to the ED with worsening shortness of breath and dyspnea on exertion. She was admitted for hypertensive emergency and is slowly improving. 1. Acute hypertensive emergency, present on admission. Improving -Patient presented with severe hypertension and initial blood pressure of 247/148 with associated end organ damage with acute kidney injury, headache, elevated troponin, and flash pulm edema/CHF exac. Patient denied headache, visual changes, lightheadedness or dizziness, or chest pain on admission. Patient had similar presentation and hospital admission in 08/2019. Patient likely has hypertensive retinopathy as she has had visual changes in the past and had planned Ophthalmology evaluation but missed her appointment due to hospitalization. -Previous home regimen included lisinopril 20 mg daily and carvedilol 6.25 mg twice daily for which the patient reports she has been compliant with taking these medications. -Differential diagnosis includes: Resistant hypertension due to methamphetamine use versus primary aldosteronism (patient has had hypokalemia in past and has hyperpigmentation of face only) versus renal artery fibromuscular dysplasia. Previously ruled out neuroendocrine tumor/pheochromocytoma with 5-HIAA and urine metanephrines. -Recommend outpatient renal Doppler ultrasound which is not able to be obtained here and recommend outpatient evaluation. -Limited echocardiogram demonstrated EF 40% with LV contractility slightly less vigorous otherwise unchanged. -Nicardipine gtt was started due to persistent headache and severe hypertension and was slowly titrated off as allowed with antihypertensives and improved BP. -Received furosemide 40 mg IV x1 and 1 inch nitropaste in ED. Started and continue amlodipine 5 mg twice daily, carvedilol 12.5 mg twice daily, clonidine 0.1 mg patch weekly, hydralazine 75 mg 3 times daily and received spironolactone 25 mg but discontinued due to hyperkalemia likely due to worsening CKD. Discontinued furosemide 40 mg IV twice daily for now as patient appears euvolemic and do not want to further propagate renal insufficiency. Target SBP 150's. Initially blood pressure dropped iatrogenically due to above medications and returned to coreg 12.5, amlodipine and hydralazine at 50 mg TID and were adjusted to the final discharge medications below. -Current medications upon discharge: clonidine 0.1 mg patch weekly, coreg 12.5 mg BID, nifedipine 30 mg daily, hydralazine 50 mg PO TID. -Consulted the patient's cardiology, Dr. Preston, and we appreciate his time and recommendations. Concern for some medical noncompliance or methamphetamine use and lack of follow-up. -Recommend outpatient referral to Nephrology, Cardiology follow-up, ophthalmology evaluation rescheduled and sleep study. -overnight pulse oximetry monitoring the night before discharge did not show evidence of hypoxemia, however patient states that she was not sleeping well. 2. JAMILA on CKD versus worsening CKD now stage IV, present on admission. Active. -Chronic kidney disease likely secondary to hypertensive nephropathy with probable nephrosclerosis and ischemic nephropathy with small left kidney. Patient has also taken NSAIDs frequently for daily headaches and was on lisinopril up until hospitalization and likely contributed to worsening renal function. Hep C may also be contributing. -Initial creatinine 2.7. Baseline creatinine 1.7 during last hospitalization in 08/2019 and previous to this her creatinine was 0.85 in 08/2018. Creatinine has been stable around 2.5. -Avoid nephrotoxic agents. -Discussed case with on-call Nephrology at [facility] who agreed with workup including: HIV negative, Hepatitis B and C serologies positive as below (as patient reported she experimented with IV drugs when she was a young woman), renin/aldosterone activity pending, urinalysis which demonstrated proteinuria (hematuria not present so did not order MORRIS and complement levels), urine protein to creatinine ratio which is high at 2.02 but not nephrotic range and cannot use ACEI/ARB due to degree of renal insufficiency. Repeat renal ultrasound performed which noted small L kidney as above. 3. Acute exacerbation of systolic congestive heart failure, secondary to hypertensive emergency, present on admission. Resolved. -Patient presented progressive worsening dyspnea on exertion, orthopnea, and shortness of breath at rest. No peripheral edema. -ProBNP elevated at 6570. -Limited echocardiogram demonstrated EF 40% with LV contractility slightly less vigorous otherwise unchanged. -Received furosemide 40 mg IV x1 and 1 inch nitropaste in ED. Received furosemide 40 mg IV x 2 then discontinued as patient appears euvolemic with creatinine trending up slightly. Much improved symptomatically after diuresis. 4. Acute elevated troponin, secondary to demand ischemia from hypertensive emergency, present on admission. Resolved. -Patient denied chest pain or any ACS symptoms. -EKG demonstrated sinus rhythm with LVH and no acute ischemic changes. Echocardiogram did not demonstrate any wall motion abnormalities. -Initial troponin 0.100 in setting of CKD. Troponin trended down to 0.063. 5. Fatty and likely Hep C liver disease , chronic, present on admission. -Patient has had mild transaminitis since 2017. Initial LFTs: Total bilirubin is 0.6, AST is 54, ALT of 41 and alkaline phosphatase of 136. -Abdominal ultrasound demonstrated mild heterogeoous echotexture. -Hep C antibody positive and RNA viral load sent out and pending. Patient endorses history of IVDU remotely. -Hep B serologies positive for HBcAB positive and HBSAg and HBsAb negative indicative of possible active Hep B in window period versus chronic inactive carrier. -Recommended lifestyle modification including diet and exercise. Consulted dietitian and we appreciate her time and recommendations. -Recommend referral to GI as outpatient for further evaluation and treatment of liver disease and Hep C and Hep B. -Continue low-sodium diet. 6. Methamphetamine use and remote history of IVDU, chronic, present on admission. -UDS positive for methamphetamines. Patient endorses use intermittently and remote history of IVDU. Counseled patient extensively regarding use and risk of resistant and difficult to treat hypertension, arrhythmia, OK, CVA, etc. Recommended indefinite cessation. -Consulted GATHERING MACHINE SETTER and we appreciate her time and recommendations. Disposition: Discharge home. Plan for follow up on Friday. Exam Vital Signs (past 8 hours): - 12/19/19 09:00 Temperature 97.1 F L Pulse Rate 70 Respiratory Rate 19 Blood Pressure 166/129 H Pulse Oximetry 100 Oxygen Delivery Method Room Air Oxygen Flow Rate 0 Narrative Exam Narrative: General: Older female lying in bed in no acute distress, well-developed, well-nourished, anxious and fatigued but appropriately interactive. HEENT: Normocephalic, atraumatic. External ears without defect. Pupils equal, round, and reactive to light. Anicteric sclerae, moist conjunctivae, and no lid lag. Oropharynx free of erythema and cobble stoning with moist mucosa. Neck: Supple with full range of motion. No jugular venous distension. No lymphadenopathy or thyromegaly. Cardiovascular: Regular rate and rhythm without murmurs, rubs, or gallops appreciated. Pulmonary: Clear to auscultation bilaterally without crackles, wheezes, or rhonchi. Normal respiratory effort with no use of accessory muscles. Abdomen: Soft, bowel sounds present, nontender, nondistended. No hepatosplenomegaly or masses appreciated. Extremities: No clubbing, cyanosis, or edema. Skin: Normal temperature, turgor, and texture; no rash, ulcers, or subcutaneous nodules appreciated. Hyperpigmentation of face and body with keloid scarring throughout body. Neurological: Cranial nerves grossly intact. Psychiatric: Anxious mood and normal affect. Emotional and stressed. Alert and oriented to person, place, and time. Objective Labs Result Diagrams: 12/17/19 07:55 12/19/19 04:43 Labs: Laboratory Results - last 24 hr 12/19/19 04:43 Sodium 134 L Potassium 4.2 Chloride 103 Carbon Dioxide 22 BUN 58 H Creatinine 2.64 H Estimated GFR 18.6 L BUN/Creatinine Ratio 22.0 Glucose 123 H Calcium 9.2 Total Bilirubin 0.4 AST 44 H ALT 37 H Alkaline Phosphatase 120 Total Protein 7.7 Albumin 3.9 Globulin 3.8 Albumin/Globulin Ratio 1.0 Discharge Plan Discharge Plan Patient Disposition: Home Discharge comment: You were admitted to the hospital for elevated blood pressures. You were found to have some decreased heart function and your kidneys appear to more damaged than they were. Please continue these medications that you were prescribed, but adjustments may need to be made. You have a follow up with Diamond Jaffe this . Discharge orders & Medications Prescriptions: New aspirin 81 mg Tablet,Delayed Release (Dr/Ec) 81 mg PO DAILY 30 Days Qty: 30 RF: 0 carvedilol 12.5 mg tablet 12.5 mg PO BID 30 Days Qty: 60 RF: 0 hydralazine 50 mg tablet 50 mg PO TIDWM 30 Days Qty: 90 RF: 0 nifedipine 30 mg Tablet Extended Release 24hr 30 mg PO DAILY 30 Days Qty: 30 RF: 0 atorvastatin 40 mg tablet 40 mg PO BEDTIME 30 Days Qty: 30 RF: 0 clonidine 0.1 mg/24 hr patch weekly 1 patch transdermal QWEEK 30 Days Qty: 4 RF: 0 Discontinued carvedilol 6.25 mg tablet 6.25 mg PO BID RF: 0 lisinopril 20 mg tablet 20 mg PO DAILY RF: 0 Excedrin Migraine 250-250-65 mg Tablet 2 tab PO Q6H PRN (Reason: Headache) RF: 0 Follow up/Referrals: Diamond Haas ARNP [Primary Care Provider] - 3-5 Days ([facility]: WALLY LARKIN ON DECEMBER 21 @ 2:15PM ) Discharge Health Status Health Concerns: Hypertension CKD 4. Diet/Activity/Treatments Diet: Diet as Tolerated Activity: As tolerated Visit Report/Discharge Packet Instructions: The DASH Diet, DI for High Blood Pressure, Clonidine Transdermal Patch, Hydralazine, Nifedipine (By mouth) Visit Report Forms: Patient Portal/API, Stroke Signs & Symptoms Discharge Data Primary Care Provider: Diamond Haas Discharges patient from system. Discharge Date/Time: 12/19/19 12:00 Quality VTE Deep Vein Thrombosis/Pulmonary Embolism Present on Admission: No
[2019-12-20 09:07] LABS: Aldosterone/Renin Activity Rat 0.4 (0.0-30.0); Plama Renin, LC/MS/MS 45.013 ng/mL/hr (0.167-5.380)
[2019-12-23 04:36] LABS: HCV Genotype 1a (.); HCV LOG 10 6.332 (.)
== END 2019-12-19 12:00 | disposition home or self-care (01) | DRG 199 ==
LOC: ED 03:17 → AC 04:31 → ICU 12-14 12:50 → AC 12-14 14:37
PROVIDERS: Internal Medicine; Admitting Provider Nurse Practitioner Adult Health; Emergency Provider Emergency Medicine; PCP Nurse Practitioner Family; Referring Provider Emergency Medicine; Visit Provider Nurse Practitioner Adult Health
DX: I16.1 Hypertensive emergency (principal); I13.0 Hypertensive heart and chronic kidney disease with heart failure and stage 1 through stage 4 chronic kidney disease, or unspecified chronic kidney disease; I50.23 Acute on chronic systolic (congestive) heart failure; N17.9 Acute kidney failure, unspecified; N18.3 Chronic kidney disease, stage 3 (moderate); I24.8 Other forms of acute ischemic heart disease; H35.039 Hypertensive retinopathy, unspecified eye; I95.89 Other hypotension; B19.10 Unspecified viral hepatitis B without hepatic coma; B18.2 Chronic viral hepatitis C; F15.99 Other stimulant use, unspecified with unspecified stimulant-induced disorder; F17.210 Nicotine dependence, cigarettes, uncomplicated; Z11.59 Encounter for screening for other viral diseases
CPT/HCPCS: 36415; 36592; 71045; 76700; 76770; 80053; 80061; 80305; 81001; 82088; 82550; 82553; 82570; 83036; 83690; 83735; 83880; 84156; 84244; 84443; 84484; 85025; 85610; 85730; 86704; 86705; 86706; 86803; 87340; 87389; 87522; 87635; 87797; 93005; 93010; 93307; 94760; 94762; 96374; 99284; J1644; J1940; J2270

== ENCOUNTER → 2019-12-22 15:02 | Outpatient (CLI) | payer OTHER, MEDICAID, SELFPAY ==
[2019-12-13 04:40] VITALS: BMI 30.1
[2019-12-22 17:20] LABS: Alanine Aminotransferase 46 IU/L (<35); Albumin 4.1 g/dL (3.5-5.0); Albumin Globulin Ratio 1.1 (1.0-2.8); Alkaline Phosphatase 113 U/L (38-126); Aspartate Aminotransferase 44 IU/L (14-36); BUN Creatinine Ratio 20.9 (6-22); Bilirubin Total 0.5 mg/dL (0.2-1.3); Blood Urea Nitrogen 56 mg/dL (7-17); Calcium 9.4 mg/dL (8.4-10.2); Carbon Dioxide 20 mmol/L (22-32); Chloride 105 mmol/L (98-107); Estimated Glomerular Filt Rate 18.3 mL/min (>60); Globulin 3.7 g/dL (1.7-4.1); Glucose 87 mg/dL (70-100); HEMOLYSIS < 15 (0-50); Phosphorous 5.4 mg/dL (2.5-4.5); Potassium 5.6 mmol/L (3.4-5.1); Sodium 135 mmol/L (137-145); Total Protein 7.8 g/dL (6.3-8.2)
== END ==
PROVIDERS: PCP Nurse Practitioner Family; Referring Provider Nurse Practitioner Family; Visit Provider Nurse Practitioner Family
DX: I11.9 Hypertensive heart disease without heart failure (principal); I43 Cardiomyopathy in diseases classified elsewhere; I50.9 Heart failure, unspecified; N17.9 Acute kidney failure, unspecified
CPT/HCPCS: 36415; 80053; 84100

== ENCOUNTER → 2019-12-23 10:45 | Outpatient (CLI) | payer OTHER, MEDICAID, SELFPAY ==
[2019-12-13 04:40] VITALS: BMI 30.1
[2019-12-23 12:20] LABS: BUN Creatinine Ratio 20.5 (6-22); Blood Urea Nitrogen 54 mg/dL (7-17); Calcium 9.3 mg/dL (8.4-10.2); Carbon Dioxide 20 mmol/L (22-32); Chloride 106 mmol/L (98-107); Estimated Glomerular Filt Rate 18.7 mL/min (>60); Glucose 95 mg/dL (70-100); HEMOLYSIS < 15 (0-50); Potassium 5.3 mmol/L (3.4-5.1); Sodium 134 mmol/L (137-145)
== END ==
PROVIDERS: PCP Nurse Practitioner Family; Referring Provider Nurse Practitioner Family; Visit Provider Nurse Practitioner Family
DX: E87.5 Hyperkalemia (principal)
CPT/HCPCS: 36415; 80048

== ENCOUNTER 2019-12-24 11:23 | Emergency (ER) | payer OTHER, MEDICAID, SELFPAY ==
[2019-12-13 04:40] VITALS: BMI 30.1
[2019-12-24 11:39] VITALS: BP 158/100; PULSE 63; RESP 18; TEMP 36.8; O2SAT 100; BMI 30.1
--- NOTE | 2019-12-24 12:39 | PC.NURSE ---
1230: attempted to locate pt to bring her back into the department. Unable to locate at this time
--- NOTE | 2019-12-24 12:40 | PC.NURSE ---
called pt at 12 pm unable to find. walked down to or waiting area. registration aware to keep looking for her.
--- NOTE | 2019-12-24 12:52 | DIET.PN ---
Dietary Progress Note Nutrition admin note: Pt has come by RD office twice this week when at hospital to check in about learning more about CKD diet. OP referral secured from Samina, will plan OP nutrition visit next week and can do some education if pt admitted to floor today. Most recent labs show K+ 5.3 H, Cr 2.63 H, eGFR 18.7 L, phos 5.4 H, please select Renal diet to limit dairy to 1c/d, limit K+ and Na to 2g/d and protein to 50g/d (0.6g/kg per CKD3)
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
[2019-12-24 13:42] LABS: Add Manual Diff / Slide Review NO; Basophils Absolute Auto 100 /uL (0-100); Basophils Percent Auto 0.8 % (0-2); Eosinophils Absolute Auto 300 /uL (0-450); Eosinophils Percent Auto 3.1 % (2-4); Hematocrit 35.5 % (36-46); Hemoglobin 11.5 g/dL (12.0-16.0); Lymphocytes Absolute Auto 2300 /uL (1100-4500); Lymphocytes Percent Auto 26.2 % (25-40); Mean Corpuscular HGB Conc 32.5 % (30-36); Mean Corpuscular Hemoglobin 26.4 PG (26-34); Mean Corpuscular Volume 81.1 fL (80-100); Monocytes Absolute Auto 900 /uL (0-900); Monocytes Percent Auto 10.3 % (3-14); Neutrophils Absolute Auto 5100 /uL (1500-7000); Neutrophils Percent Auto 59.6 % (50-75); Platelet Count 212 X10^3/uL (150-400); Red Blood Cell Count 4.38 X10^6/uL (4.0-5.2); White Blood Cell Count 8.6 X10^3/uL (4.5-11.0)
[2019-12-24 13:54] LABS: Alanine Aminotransferase 40 IU/L (<35); Albumin Globulin Ratio 1.1 (1.0-2.8); Alkaline Phosphatase 136 U/L (38-126); Aspartate Aminotransferase 44 IU/L (14-36); BUN Creatinine Ratio 19.7 (6-22); Bilirubin Total 0.4 mg/dL (0.2-1.3); Blood Urea Nitrogen 59 mg/dL (7-17); Calcium 9.1 mg/dL (8.4-10.2); Carbon Dioxide 22 mmol/L (22-32); Chloride 104 mmol/L (98-107); Estimated Glomerular Filt Rate 16.1 mL/min (>60); Globulin 3.8 g/dL (1.7-4.1); Glucose 105 mg/dL (70-100); HEMOLYSIS < 15 (0-50); Magnesium 2.2 mg/dL (1.6-2.3); Sodium 136 mmol/L (137-145); Total Protein 7.8 g/dL (6.3-8.2)
[2019-12-24 14:49] VITALS: BP 148/90; PULSE 80; RESP 18; O2SAT 99
== END 2019-12-24 14:50 | disposition home or self-care (01) ==
PROVIDERS: Emergency Provider Nurse Practitioner Family; PCP Nurse Practitioner Family
DX: L29.9 Pruritus, unspecified (principal)
CPT/HCPCS: 36415; 80053; 83735; 85025; 99281; 99283

== ENCOUNTER 2019-12-28 04:27 | Emergency (ER) | payer OTHER, MEDICAID, SELFPAY ==
[2019-12-13 04:40] VITALS: BMI 30.1
[2019-12-28 04:32] VITALS: BP 180/103; PULSE 93; RESP 20; TEMP 36.9; O2SAT 98; BMI 30.1
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
[2019-12-28 04:36] VITALS: PULSE 85; RESP 23; O2SAT 99
[2019-12-28 05:00] VITALS: BP 170/91; PULSE 78; RESP 22; O2SAT 99
[2019-12-28] MEDS: MAG HYDROX/ALUMINUM/SIMETH SUS 20 ML, LIDOCAINE VISCOUS 2% 15 ML PO (05:02)
[2019-12-28 05:30] VITALS: BP 140/72; PULSE 77; RESP 15; O2SAT 100
[2019-12-28 06:00] VITALS: BP 144/79; PULSE 75; RESP 0
[2019-12-28 06:30] VITALS: BP 142/77; PULSE 71; RESP 17
== END 2019-12-28 06:50 | disposition home or self-care (01) ==
PROVIDERS: Emergency Provider Emergency Medicine; PCP Nurse Practitioner Family
DX: I11.0 Hypertensive heart disease with heart failure (principal); R51 Headache; I50.9 Heart failure, unspecified
CPT/HCPCS: 93005; 99283

== ENCOUNTER → 2019-12-29 12:22 | Outpatient (CLI) | payer OTHER, MEDICAID, SELFPAY ==
[2019-12-13 04:40] VITALS: BMI 30.1
[2019-12-29 15:15] LABS: BUN Creatinine Ratio 25.5 (6-22); Blood Urea Nitrogen 63 mg/dL (7-17); Calcium 9.2 mg/dL (8.4-10.2); Carbon Dioxide 21 mmol/L (22-32); Chloride 105 mmol/L (98-107); Estimated Glomerular Filt Rate 20.1 mL/min (>60); Glucose 105 mg/dL (70-100); HEMOLYSIS < 15 (0-50); Potassium 5.2 mmol/L (3.4-5.1); Sodium 137 mmol/L (137-145)
== END ==
PROVIDERS: PCP Nurse Practitioner Family; Referring Provider Nurse Practitioner Family; Visit Provider Nurse Practitioner Family
DX: E87.5 Hyperkalemia (principal); N17.9 Acute kidney failure, unspecified
CPT/HCPCS: 36415; 80048

== ENCOUNTER → 2019-12-31 11:09 | Outpatient (CLI) | payer OTHER, MEDICAID, SELFPAY ==
[2019-12-13 04:40] VITALS: BMI 30.1
--- NOTE | 2019-12-31 11:29 | DIET.PN ---
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 Dash and garlic/onion powder rather than salts. Pt wants to preserve or improve kidney function as long as possible to avoid dialysis. Pts eGFR 2y ago (2018 per [facility] records was >60) pt was not followed by dr during that time, but was taking medications which have side effects which affect renal fxn. She also has HTN and was admitted to ICU 1mo ago for hypertensive emergency. Labs: K+ 5.2 H, Cr 2.47 H, eGFR 20.1 L, phosphorus 5.4 H Nutrition Diagnosis:altered nutrition related laboratory values r/t renal dysfunction and food and nutrition related knowledge deficit aeb Pt has CKD3-4, most recent labs include K+ 5.2 H, Cr 2.47 H, eGFR 20.1 L, phosphorus 5.4 H, pt newly diagnosed so does not know about renal diet. Interventions: 1. Discussed meeting c pt at least 3x/y to manage renal diet based on most current labs, and more frequently at first for extensive education. 2. Discussed potassium, role in body, limiting to 2g/d. Gave pt handouts on potassium content of foods, to severely reduce intake of potato, avocado, banana, and no salt substitutes. 3. Discussed high phosphorus. Pt does not eat much meat but does like beans. Phosphorus from beans is only 60% absorbed, so pt can have 1/2-1c beans in place of meat. Pt will limit dairy to 1/2c per day and will eat a Tums (as phosphorus binder) when eating dairy. Pt was big milk, yogurt, and cheese eater. Pt switching to rice milk. 4. Discussed eGFR and creatinine. Pt does not eat much meat, discussed protein serving sizes and to limit to 50g/d with preference for plant sources which are easier on kidneys. 5. Pt is following low-sodium diet for HTN and CKD, reiterated importance of this and how to read labels for sodium content. Diet Order: Renal EER: 2g Na, 2g K+, 50g PRO, 1/2c dairy/d Monitoring/Evaluations: will schedule f/u after pt has appt c new PCP Batsheva. Recc pt take phosphate binders if this lab remains elevated.
== END ==
PROVIDERS: PCP Nurse Practitioner Family; Referring Provider Nurse Practitioner Family; Visit Provider Nurse Practitioner Family
DX: I12.9 Hypertensive chronic kidney disease with stage 1 through stage 4 chronic kidney disease, or unspecified chronic kidney disease (principal); N18.4 Chronic kidney disease, stage 4 (severe); Z71.3 Dietary counseling and surveillance
CPT/HCPCS: 97802

== ENCOUNTER → 2020-01-10 14:44 | Outpatient (CLI) | payer OTHER, MEDICAID, SELFPAY ==
[2019-12-13 04:40] VITALS: BMI 30.1
[2020-01-10 15:31] LABS: Alanine Aminotransferase 39 IU/L (<35); Albumin 4.4 g/dL (3.5-5.0); Albumin Globulin Ratio 1.2 (1.0-2.8); Alkaline Phosphatase 112 U/L (38-126); Aspartate Aminotransferase 46 IU/L (14-36); BUN Creatinine Ratio 16.3 (6-22); Bilirubin Total 0.4 mg/dL (0.2-1.3); Blood Urea Nitrogen 40 mg/dL (7-17); Calcium 9.4 mg/dL (8.4-10.2); Carbon Dioxide 22 mmol/L (22-32); Chloride 102 mmol/L (98-107); Estimated Glomerular Filt Rate 20.2 mL/min (>60); Globulin 3.7 g/dL (1.7-4.1); Glucose 95 mg/dL (70-100); HEMOLYSIS < 15 (0-50); Potassium 4.5 mmol/L (3.4-5.1); Sodium 137 mmol/L (137-145); Total Protein 8.1 g/dL (6.3-8.2)
[2020-01-10 16:01] LABS: TSH w/ Reflex to FT4 1.72 uIU/mL (0.47-4.68)
== END ==
PROVIDERS: PCP Family Medicine; Referring Provider Family Medicine; Visit Provider Family Medicine
DX: N18.3 Chronic kidney disease, stage 3 (moderate) (principal); R76.8 Other specified abnormal immunological findings in serum
CPT/HCPCS: 36415; 80053; 84443

== ENCOUNTER → 2020-01-14 11:56 | Outpatient (CLI) | payer OTHER, MEDICAID, SELFPAY ==
[2019-12-13 04:40] VITALS: BMI 30.1
--- NOTE | 2020-01-14 16:31 | DIET.PN ---
Dietary Progress Note Assessment: 59y F attending f/u for nutrition counseling regarding her CKD3/4 and HTN. Pt reports having a lot of fun learning to cook kidney-friendly meals. She has a notebook with information from all of her healthcare appointments and is happy to be taking care of herself. Pt is using [facility] website for recipes. She reports making a spinach and garlic omelet, and several lean pork based meals from site. Pt is experiencing some stress with the ending of an 8 year relationship but feels this partner should be there for her and support her emotionally through these big life changes, and if not, she will have to focus on herself and her own wellbeing. Pt looks forward to her therapy for hepatitis, had questions on how it will affect her labs, this RD defers to her specialists. Pt reports insurance does not cover blood pressure monitor for home use, a friend is borrowing her one right now. Pt's potassium regulated to 4.5 but BUN, Cr, eGFR, and phos are still deranged though slightly improved. Pt reports her PCP is ordering labs weekly for now. Pt had questions about drinking tea-herbal/black/green. Pt okay to drink 2-3 cups per day if they are teabags without additives. Pt asked about taking SuperBeets supplement, we looked it up together and seemed renal friendly so okay to take for now up to 1 tsp/d. Labs: BUN 40 H, eGFR 20.2 L, phos 5.4 H, Cr 2.46 H Nutrition Diagnosis: altered nutrition related laboratory values r/t renal dysfunction and nutrition related knowledge deficit aeb pt has CKD 3/4, current labs BUN 40 H, eGFR 20.2 L, phos 5.4 H, Cr 2.46 H, pt comes to RD appointment with many questions. Interventions: 1. Continued encouraging pt to moderate protein intake to ~60g/d max. Introduced pt to [facility] resource for added meal planning ideas. 2. Continued encouraging pt to look for phosphate additives in food and to eliminate as many as possible. Encouraged pt to ask sponge diver about taking phosphate binders c meals to lower phos. 3. Provided pt resource to call [employer] for medical supply rental to see if she can get blood pressure cuff. Monitoring/Evaluations: RD to follow pts labs each week and call with update and encouragement if changes occur. Pt and RD agree to meet quarterly for in person appointments long-term.
== END ==
PROVIDERS: PCP Family Medicine; Referring Provider Family Medicine; Visit Provider Family Medicine
DX: I12.9 Hypertensive chronic kidney disease with stage 1 through stage 4 chronic kidney disease, or unspecified chronic kidney disease (principal); N18.4 Chronic kidney disease, stage 4 (severe); Z71.3 Dietary counseling and surveillance
CPT/HCPCS: 97803

== ENCOUNTER → 2020-02-08 10:03 | Outpatient (CLI) | payer OTHER, MEDICAID, SELFPAY ==
[2019-12-13 04:40] VITALS: BMI 30.1
[2020-02-08 10:34] LABS: Bacteria Urine None Seen; RBC Urine None Seen (0-5/HPF); WBC Urine None Seen (0-5/HPF)
[2020-02-08 11:39] LABS: Add Manual Diff / Slide Review NO; Basophils Absolute Auto 0 /uL (0-100); Basophils Percent Auto 0.7 % (0-2); Eosinophils Absolute Auto 200 /uL (0-450); Eosinophils Percent Auto 3.7 % (2-4); Hematocrit 36.3 % (36-46); Hemoglobin 11.5 g/dL (12.0-16.0); Lymphocytes Absolute Auto 2000 /uL (1100-4500); Lymphocytes Percent Auto 32.9 % (25-40); Mean Corpuscular HGB Conc 31.7 % (30-36); Mean Corpuscular Hemoglobin 25.2 PG (26-34); Mean Corpuscular Volume 79.4 fL (80-100); Monocytes Absolute Auto 800 /uL (0-900); Monocytes Percent Auto 12.6 % (3-14); Neutrophils Absolute Auto 3000 /uL (1500-7000); Neutrophils Percent Auto 50.1 % (50-75); Platelet Count 221 X10^3/uL (150-400); Red Blood Cell Count 4.57 X10^6/uL (4.0-5.2); Red Cell Distribution Width 12.6 % (11.6-14.8); White Blood Cell Count 6.1 X10^3/uL (4.5-11.0)
[2020-02-08 11:53] LABS: BUN Creatinine Ratio 11.9 (6-22); Blood Urea Nitrogen 31 mg/dL (7-17); Calcium 9.7 mg/dL (8.4-10.2); Carbon Dioxide 28 mmol/L (22-32); Chloride 102 mmol/L (98-107); Estimated Glomerular Filt Rate 18.9 mL/min (>60); Glucose 97 mg/dL (70-100); HEMOLYSIS < 15 (0-50); Magnesium 2.1 mg/dL (1.6-2.3); Phosphorous 4.3 mg/dL (2.5-4.5); Potassium 3.8 mmol/L (3.4-5.1); Sodium 138 mmol/L (137-145); Uric Acid 6.4 mg/dL (2.5-6.2)
[2020-02-08 12:19] LABS: Vitamin D 25 Hydroxy (D3) 33.7 ng/mL (30.0-100.0)
[2020-02-08 14:49] LABS: Appearance Urine UA CLEAR; Bilirubin Urine UA NEGATIVE (NEGATIVE); Color Urine UA YELLOW; Glucose Urine UA NEGATIVE (Negative); Ketones Urine UA NEGATIVE (NEGATIVE); Leukocyte Esterase Urine UA NEGATIVE (NEGATIVE); Nitrite Urine UA NEGATIVE (Negative); Occult Blood Urine UA NEGATIVE (Negative); Protein Urine UA 1+ (Negative); Urobilinogen Urine UA 0.2 E.U./dL (0.2)
[2020-02-08 14:52] LABS: pH Urine UA 5.5 (4.5-8.0)
[2020-02-08 14:55] LABS: Squamous Epithelial Cell Urine 10-30 /HPF (0-5/HPF)
[2020-02-08 16:49] LABS: Creatinine Urine Random 78.9 mg/dL; Protein (Total) Urine Random 78 mg/dL (0-12); Protein Creatinine Ratio Urine 0.98 GRAM/24H
[2020-02-09 09:09] LABS: Parathyroid Hormone Int 129 pg/mL (15-65)
== END ==
PROVIDERS: PCP Family Medicine; Referring Provider Internal Medicine Nephrology; Visit Provider Internal Medicine Nephrology
DX: N18.4 Chronic kidney disease, stage 4 (severe) (principal)
CPT/HCPCS: 36415; 80048; 81001; 82306; 82570; 83735; 83970; 84100; 84156; 84550; 85025

== ENCOUNTER → 2020-03-02 13:33 | Outpatient (CLI) | payer OTHER, MEDICAID, SELFPAY ==
[2019-12-13 04:40] VITALS: BMI 30.1
[2020-03-03 13:12] LABS: Calcium 9.5 mg/dL (8.7-10.2); Parathyroid Hormone, Intact 148 pg/mL (15-65)
== END ==
PROVIDERS: PCP Family Medicine; Referring Provider Family Medicine; Visit Provider Family Medicine
DX: E21.3 Hyperparathyroidism, unspecified (principal)
CPT/HCPCS: 36415; 82310; 83970

== ENCOUNTER → 2020-03-08 13:27 | Outpatient (CLI) | payer OTHER, MEDICAID, SELFPAY ==
[2019-12-13 04:40] VITALS: BMI 30.1
--- NOTE | 2020-03-08 | DI.US.S_ITS ---
PROCEDURE: US THYROID INDICATIONS: HYPERPARATHYROIDISM TECHNIQUE: Real-time scanning was performed of the thyroid gland, with image documentation. COMPARISON: None. FINDINGS: Right: Thyroid lobe measures 4.5 x 1.4 x 2.3 cm, and is homogeneous in echotexture. Left: Thyroid lobe measures 4.5 x 1.3 x 1.7 cm, and is homogenous in echotexture. Isthmus: 6 mm thick. Nodule number: 1 Location: Right inferior Size: 0.7 x 0.4 x 0.5 cm. Composition: Predominantly cystic Echogenicity: Anechoic Shape: Wider than tall Margins: Smooth Echogenic foci: None Total points: 0 ACR TI-RADS category: Benign Nodule number: 2 Location: Isthmus Size: 0.5 x 0.2 x 0.4 cm. Composition: Solid Echogenicity: Hypoechoic Shape: Wider than tall Margins: Smooth Echogenic foci: Non Total points: 4 ACR TI-RADS category: Moderately suspicious Nodule number: 3 Location: Left mid Size: 0.6 x 0.4 x 0.5 cm. Composition: Solid Echogenicity: Hypoechoic Shape: Wider than tall Margins: Smooth Echogenic foci: Non Total points: 4 ACR TI-RADS category: Moderately suspicious Nodule number: 4 Location: Left inferior Size: 0.5 x 0.2 x 0.5 cm. Composition: Solid Echogenicity: Hypoechoic Shape: Wider than tall Margins: Smooth Echogenic foci: None Total points: 4 ACR TI-RADS category: Moderately suspicious IMPRESSION: Moderately suspicious nodules in the isthmus and left lobe of the thyroid gland. Based on size and TI-RADS categorization, recommend serial follow-up ultrasound in 1, 2, 3 in 5 years. ACR TI-RADS definitions and recommendations: TI-RADS 1 (benign): 0 points. FNA not needed. TI-RADS 2 (not suspicious): 2 points. FNA not needed. TI-RADS 3 (mildly suspicious): 3 points. * FNA if 2.5 cm or larger, follow up if 1.5 cm or larger (at 1, 3, and 5 years). TI-RADS 4 (moderately suspicious): 4-6 points. * FNA if 1.5 cm or larger, follow up if 1 cm or larger (at 1, 2, 3, and 5 years). TI-RADS 5 (highly suspicious): 7 points or more. * FNA if 1 cm or larger, follow up if 0.5 cm or larger (every year for 5 years). Dictated by: Jamee Kan MD, PhD on 03/09/2020 at 16:20 Approved by: Jamee Kan MD, PhD on 03/09/2020 at 16:25
== END ==
PROVIDERS: PCP Family Medicine; Referring Provider Family Medicine; Visit Provider Family Medicine
DX: E21.3 Hyperparathyroidism, unspecified (principal); E04.2 Nontoxic multinodular goiter
CPT/HCPCS: 76536

== ENCOUNTER → 2020-03-08 15:55 | Outpatient (CLI) | payer OTHER, MEDICAID, SELFPAY ==
[2019-12-13 04:40] VITALS: BMI 30.1
[2020-03-08 17:39] LABS: Urine N gonorrhoeae NOT DETECTED
[2020-03-08 17:51] LABS: Urine Chlamydia NOT DETECTED
[2020-03-09 04:36] LABS: RPR Screen Non Reactive (Non Reactive)
[2020-03-09 16:43] LABS: HIV 1 & 2 Ab/Ag 4th Gen Combo NEGATIVE (NEGATIVE)
[2020-03-09 17:36] LABS: HSV I/II IgM 1.22 Ratio (0.00-0.90)
[2020-03-11 10:36] LABS: HBsAg Screen Negative (Negative); Hepatitis A Antibody IgM Negative (Negative); Hepatitis B Core Antibody IgM Negative (Negative); Hepatitis C Antibody >11.0 s/co ratio (0.0-0.9); Hepatitis C Quant 549000 IU/mL (.)
== END ==
PROVIDERS: PCP Family Medicine; Visit Provider Physician Assistant
DX: Z11.3 Encounter for screening for infections with a predominantly sexual mode of transmission (principal)
CPT/HCPCS: 36415; 80074; 86592; 86694; 86695; 86696; 87210; 87389; 87491; 87591

== ENCOUNTER → 2020-03-09 14:52 | Outpatient (CLI) | payer OTHER, MEDICAID, SELFPAY ==
[2019-12-13 04:40] VITALS: BMI 30.1
--- NOTE | 2020-03-09 15:44 | DIET.PN ---
Dietary Progress Note Assessment: 59y F c CKD4 here for follow up after last set of renal labs. Pt comes with questions about [facility] [employer] website and protocol as she wants to avoid dialysis as long as possible as she feels will significantly reduce her quality of life. Pt interested in weight loss to manage hypertension and help support kidney function. Pt continues to have elevated Cr and low eGFR but phos and K+ are both WNL. Pt continues to work hard on her diet and continues to be motivated, attending appointments and researching renal disease. HT: 5'3.5 WT: 190# (weight goal is 145-150#) UBW: 150# BMI: 33.7 Labs: eGFR 18.9L, Cr 2.61 H, phos 4.3 WNL, K+ 3.8 WNL Nutrition Diagnosis: altered nutrition related laboratory values r/t renal dysfunction and nutrition related knowledge deficit aeb pt is CKD4, Cr 2.61 H, eGFR 18.9, pt comes to appointment with many nutrition related questions. Interventions: 1. RD and recruitment intern will research the [facility] [employer] information to see if it could benefit/harm patient as it is regimen of supplements, will encourage pt to send information to her PCP as well. 1. Pt is following renal diet and enjoying using [facility] website for recipe ideas, she made a goal of 7 days a week will walk 20 minutes per day to support weight management. Monitoring/Evaluations: f/u in 3mo after next set of labs.
== END ==
PROVIDERS: PCP Family Medicine; Referring Provider Family Medicine; Visit Provider Family Medicine
DX: N18.4 Chronic kidney disease, stage 4 (severe) (principal); E66.9 Obesity, unspecified; Z68.33 Body mass index [BMI] 33.0-33.9, adult; Z71.3 Dietary counseling and surveillance
CPT/HCPCS: 97803

== ENCOUNTER → 2020-04-03 11:47 | Outpatient (CLI) | payer OTHER, MEDICAID, SELFPAY ==
[2019-12-13 04:40] VITALS: BMI 30.1
[2020-04-03 14:37] LABS: BUN Creatinine Ratio 13.2 (6-22); Blood Urea Nitrogen 29 mg/dL (7-17); Calcium 9.5 mg/dL (8.4-10.2); Carbon Dioxide 30 mmol/L (22-32); Chloride 100 mmol/L (98-107); Glucose 96 mg/dL (70-100); HEMOLYSIS < 15 (0-50); Magnesium 2.2 mg/dL (1.6-2.3); Potassium 3.6 mmol/L (3.4-5.1); Sodium 138 mmol/L (137-145)
[2020-04-03 16:06] LABS: Creatinine Urine Random 92.8 mg/dL
[2020-04-03 16:22] LABS: Microalbumi Creatinin Ratio Ur 600.2 ug/mg CR (<30); Microalbumin Urine Random 55.7 mg/dL (0-1.6)
== END ==
PROVIDERS: PCP Family Medicine; Referring Provider Internal Medicine Nephrology; Visit Provider Internal Medicine Nephrology
DX: N18.4 Chronic kidney disease, stage 4 (severe) (principal)
CPT/HCPCS: 36415; 80048; 82043; 82570; 83735

== ENCOUNTER → 2020-04-15 11:45 | Outpatient (CLI) | payer OTHER, MEDICAID, SELFPAY ==
[2019-12-13 04:40] VITALS: BMI 30.1
[2020-04-15 13:29] LABS: Urine N gonorrhoeae NOT DETECTED
[2020-04-15 13:34] LABS: Urine Chlamydia NOT DETECTED
== END ==
PROVIDERS: PCP Family Medicine; Referring Provider Physician Assistant; Visit Provider Physician Assistant
DX: N94.9 Unspecified condition associated with female genital organs and menstrual cycle (principal); N89.8 Other specified noninflammatory disorders of vagina
CPT/HCPCS: 87210; 87491; 87591

== ENCOUNTER → 2020-04-24 14:19 | Outpatient (CLI) | payer OTHER, MEDICAID, SELFPAY ==
[2019-12-13 04:40] VITALS: BMI 30.1
[2020-04-24 14:43] LABS: Bacteria Urine None Seen; RBC Urine None Seen (0-5/HPF)
[2020-04-24 15:35] LABS: Appearance Urine UA CLEAR; Bilirubin Urine UA NEGATIVE (NEGATIVE); Color Urine UA YELLOW; Glucose Urine UA NEGATIVE (Negative); Ketones Urine UA NEGATIVE (NEGATIVE); Leukocyte Esterase Urine UA NEGATIVE (NEGATIVE); Nitrite Urine UA NEGATIVE (Negative); Occult Blood Urine UA NEGATIVE (Negative); Protein Urine UA TRACE (Negative); Urobilinogen Urine UA 0.2 E.U./dL (0.2)
[2020-04-24 15:42] LABS: Culture Indicated Urine Cult Not Indicated; Squamous Epithelial Cell Urine 0-1 /HPF (0-5/HPF); WBC Urine 0-1/HPF (0-5/HPF)
[2020-04-24 15:53] LABS: Creatinine Urine Random 35.2 mg/dL
[2020-04-24 15:59] LABS: Microalbumi Creatinin Ratio Ur 460.2 ug/mg CR (<30); Microalbumin Urine Random 16.2 mg/dL (0-1.6)
[2020-04-24 16:25] LABS: BUN Creatinine Ratio 10.7 (6-22); Blood Urea Nitrogen 23 mg/dL (7-17); Calcium 9.1 mg/dL (8.4-10.2); Carbon Dioxide 30 mmol/L (22-32); Chloride 100 mmol/L (98-107); Estimated Glomerular Filt Rate 23.6 mL/min (>60); Glucose 98 mg/dL (70-100); HEMOLYSIS < 15 (0-50); Magnesium 1.9 mg/dL (1.6-2.3); Phosphorous 4.1 mg/dL (2.5-4.5); Potassium 3.1 mmol/L (3.4-5.1); Sodium 136 mmol/L (137-145); Uric Acid 7.8 mg/dL (2.5-6.2)
[2020-04-24 16:55] LABS: Vitamin D 25 Hydroxy (D3) 32.6 ng/mL (30.0-100.0)
[2020-04-25 08:03] LABS: Parathyroid Hormone Int 125 pg/mL (15-65)
== END ==
PROVIDERS: PCP Family Medicine; Referring Provider Internal Medicine Nephrology; Visit Provider Internal Medicine Nephrology
DX: N18.4 Chronic kidney disease, stage 4 (severe) (principal)
CPT/HCPCS: 36415; 80048; 81001; 82043; 82306; 82570; 83735; 83970; 84100; 84550

== ENCOUNTER → 2020-06-01 16:24 | Outpatient (CLI) | payer OTHER, MEDICAID, SELFPAY ==
[2019-12-13 04:40] VITALS: BMI 30.1
[2020-06-01 19:13] LABS: Add Manual Diff / Slide Review NO; Basophils Absolute Auto 100 /uL (0-100); Basophils Percent Auto 0.9 % (0-2); Eosinophils Absolute Auto 400 /uL (0-450); Eosinophils Percent Auto 5.9 % (2-4); Hematocrit 38.1 % (36-46); Hemoglobin 12.4 g/dL (12.0-16.0); Lymphocytes Absolute Auto 1800 /uL (1100-4500); Lymphocytes Percent Auto 25.7 % (25-40); Mean Corpuscular HGB Conc 32.5 % (30-36); Mean Corpuscular Hemoglobin 25.7 PG (26-34); Mean Corpuscular Volume 79.1 fL (80-100); Monocytes Absolute Auto 1000 /uL (0-900); Monocytes Percent Auto 13.6 % (3-14); Neutrophils Absolute Auto 3900 /uL (1500-7000); Neutrophils Percent Auto 53.9 % (50-75); Platelet Count 151 X10^3/uL (150-400); Red Blood Cell Count 4.81 X10^6/uL (4.0-5.2); Red Cell Distribution Width 13.9 % (11.6-14.8); White Blood Cell Count 7.2 X10^3/uL (4.5-11.0)
[2020-06-01 19:35] LABS: Alanine Aminotransferase 60 IU/L (<35); Albumin 4.3 g/dL (3.5-5.0); Alkaline Phosphatase 188 U/L (38-126); Aspartate Aminotransferase 85 IU/L (14-36); BUN Creatinine Ratio 16.8 (6-22); Bilirubin Total 0.6 mg/dL (0.2-1.3); Blood Urea Nitrogen 33 mg/dL (7-17); Calcium 9.4 mg/dL (8.4-10.2); Carbon Dioxide 29 mmol/L (22-32); Chloride 100 mmol/L (98-107); Estimated Glomerular Filt Rate 26.1 mL/min (>60); Globulin 4.4 g/dL (1.7-4.1); Glucose 98 mg/dL (70-100); HEMOLYSIS < 15 (0-50); Potassium 3.6 mmol/L (3.4-5.1); Sodium 136 mmol/L (137-145); Total Protein 8.7 g/dL (6.3-8.2)
== END ==
PROVIDERS: PCP Family Medicine; Referring Provider Internal Medicine Gastroenterology; Visit Provider Internal Medicine Gastroenterology
DX: B18.2 Chronic viral hepatitis C (principal); N18.4 Chronic kidney disease, stage 4 (severe)
CPT/HCPCS: 36415; 80053; 85025

== ENCOUNTER → 2020-06-06 14:08 | Outpatient (CLI) | payer OTHER, MEDICAID, SELFPAY ==
[2019-12-13 04:40] VITALS: BMI 30.1
--- NOTE | 2020-06-06 14:08 | DI.US.S_ITS ---
PROCEDURE: US THYROID INDICATIONS: Hyperparathyroidism TECHNIQUE: Real-time scanning was performed of the thyroid gland, with image documentation. COMPARISON: [facility], [place], US THYROID, 03/08/2020, 14:15. FINDINGS: Right: Thyroid lobe measures 4.2 x 1.7 x 1.6 cm, and is homogeneous in echotexture. Left: Thyroid lobe measures 4.5 x 1.5 x 1.7 cm, and is homogenous in echotexture. Isthmus: 6 mm thick. Nodule number: 1 Location: Right inferior Size: 0.6 x 0.6 x 0.7 cm (previously 0.7 x 0.4 x 0.5 cm) Composition: Predominantly cystic Echogenicity: Anechoic Shape: Wider than tall Margins: Small Echogenic foci: None Total points: 0 ACR TI-RADS category: 1, benign Nodule number: 2 Location: Isthmus Size: 0.6 x 0.4 x 0.4 cm (previously 0.5 x 0.2 x 0.4 cm) Composition: Predominantly solid Echogenicity: Hypoechoic Shape: Wider than tall Margins: Smooth Echogenic foci: None Total points: 4 ACR TI-RADS category: 4, moderately suspicious Nodule number: 3 Location: Left mid Size: 0.5 x 0.3 x 0.4 cm (previously 0.6 x 0.4 x 0.5 cm) Composition: Predominantly solid Echogenicity: Hypoechoic Shape: Wider than tall Margins: Smooth Echogenic foci: None Total points: 4 ACR TI-RADS category: 4, moderately suspicious Nodule number: 4 Location: Left inferior Size: 0.5 x 0.3 x 0.6 cm (previously 0.5 x 0.2 x 0.5 cm) Composition: Solid Echogenicity: Hypoechoic Shape: Wider than tall Margins: Smooth Echogenic foci: Non Total points: 4 ACR TI-RADS category: 4, moderately suspicious IMPRESSION: No significant change in multiple subcentimeter thyroid nodules. No dedicated imaging follow-up is recommended based on the small nodule size. Imaging guidelines are provided below. ACR TI-RADS definitions and recommendations: TI-RADS 1 (benign): 0 points. FNA not needed. TI-RADS 2 (not suspicious): 2 points. FNA not needed. TI-RADS 3 (mildly suspicious): 3 points. * FNA if 2.5 cm or larger, follow up if 1.5 cm or larger (at 1, 3, and 5 years). TI-RADS 4 (moderately suspicious): 4-6 points. * FNA if 1.5 cm or larger, follow up if 1 cm or larger (at 1, 2, 3, and 5 years). TI-RADS 5 (highly suspicious): 7 points or more. * FNA if 1 cm or larger, follow up if 0.5 cm or larger (every year for 5 years). Dictated by: Roe Delong M.D. on 06/06/2020 at 16:09 Approved by: Roe Delong M.D. on 06/06/2020 at 16:33
== END ==
PROVIDERS: PCP Family Medicine; Referring Provider Family Medicine; Visit Provider Family Medicine
DX: E21.3 Hyperparathyroidism, unspecified (principal); E04.2 Nontoxic multinodular goiter
CPT/HCPCS: 76536

== ENCOUNTER → 2020-06-19 09:30 | Outpatient (CLI) | payer OTHER, MEDICAID, SELFPAY ==
[2019-12-13 04:40] VITALS: BMI 30.1
[2020-06-19 09:53] LABS: Add Manual Diff / Slide Review NO; Basophils Absolute Auto 100 /uL (0-100); Basophils Percent Auto 0.9 % (0-2); Eosinophils Absolute Auto 600 /uL (0-450); Eosinophils Percent Auto 6.9 % (2-4); Hemoglobin 11.9 g/dL (12.0-16.0); Lymphocytes Absolute Auto 2000 /uL (1100-4500); Lymphocytes Percent Auto 24.9 % (25-40); Mean Corpuscular HGB Conc 32.2 % (30-36); Mean Corpuscular Hemoglobin 25.4 PG (26-34); Mean Corpuscular Volume 78.9 fL (80-100); Monocytes Absolute Auto 1100 /uL (0-900); Neutrophils Absolute Auto 4300 /uL (1500-7000); Neutrophils Percent Auto 53.3 % (50-75); Platelet Count 182 X10^3/uL (150-400); Red Blood Cell Count 4.69 X10^6/uL (4.0-5.2); Red Cell Distribution Width 13.8 % (11.6-14.8); White Blood Cell Count 8.1 X10^3/uL (4.5-11.0)
[2020-06-19 10:53] LABS: Creatinine Urine Random 27.8 mg/dL
[2020-06-19 10:54] LABS: Alanine Aminotransferase 17 IU/L (<35); Albumin 4.1 g/dL (3.5-5.0); Alkaline Phosphatase 176 U/L (38-126); Aspartate Aminotransferase 33 IU/L (14-36); BUN Creatinine Ratio 15.7 (6-22); Bilirubin Total 0.3 mg/dL (0.2-1.3); Blood Urea Nitrogen 34 mg/dL (7-17); Calcium 9.4 mg/dL (8.4-10.2); Carbon Dioxide 33 mmol/L (22-32); Chloride 96 mmol/L (98-107); Estimated Glomerular Filt Rate 23.5 mL/min (>60); Globulin 4.2 g/dL (1.7-4.1); Glucose 92 mg/dL (70-100); HEMOLYSIS < 15 (0-50); Potassium 3.4 mmol/L (3.4-5.1); Sodium 135 mmol/L (137-145); Total Protein 8.3 g/dL (6.3-8.2)
[2020-06-19 10:58] LABS: Microalbumi Creatinin Ratio Ur 550.3 ug/mg CR (<30); Microalbumin Urine Random 15.3 mg/dL (0-1.6)
[2020-06-20 12:05] LABS: Calcium 8.9 mg/dL (8.7-10.2); Parathyroid Hormone, Intact 99 pg/mL (15-65)
== END ==
PROVIDERS: PCP Family Medicine; Referring Provider Internal Medicine Gastroenterology; Visit Provider Internal Medicine Gastroenterology
DX: B18.2 Chronic viral hepatitis C (principal); B19.10 Unspecified viral hepatitis B without hepatic coma; E21.3 Hyperparathyroidism, unspecified; N18.32 Chronic kidney disease, stage 3b
CPT/HCPCS: 36415; 80053; 82043; 82310; 82570; 83970; 85025

== ENCOUNTER → 2020-06-26 13:09 | Outpatient (CLI) | payer OTHER, MEDICAID, SELFPAY ==
[2019-12-13 04:40] VITALS: BMI 30.1
[2020-06-26 13:58] LABS: Add Manual Diff / Slide Review NO; Basophils Absolute Auto 100 /uL (0-100); Basophils Percent Auto 1.5 % (0-2); Eosinophils Absolute Auto 400 /uL (0-450); Hemoglobin 12.9 g/dL (12.0-16.0); Lymphocytes Absolute Auto 2000 /uL (1100-4500); Lymphocytes Percent Auto 24.2 % (25-40); Mean Corpuscular HGB Conc 32.3 % (30-36); Mean Corpuscular Hemoglobin 25.7 PG (26-34); Mean Corpuscular Volume 79.6 fL (80-100); Monocytes Absolute Auto 900 /uL (0-900); Monocytes Percent Auto 11.1 % (3-14); Neutrophils Absolute Auto 4900 /uL (1500-7000); Neutrophils Percent Auto 58.2 % (50-75); Platelet Count 148 X10^3/uL (150-400); Red Blood Cell Count 5.03 X10^6/uL (4.0-5.2); Red Cell Distribution Width 14.1 % (11.6-14.8); White Blood Cell Count 8.4 X10^3/uL (4.5-11.0)
[2020-06-26 15:20] LABS: Alanine Aminotransferase 16 IU/L (<35); Albumin 4.7 g/dL (3.5-5.0); Alkaline Phosphatase 180 U/L (38-126); Aspartate Aminotransferase 32 IU/L (14-36); BUN Creatinine Ratio 13.2 (6-22); Bilirubin Total 0.5 mg/dL (0.2-1.3); Blood Urea Nitrogen 24 mg/dL (7-17); Calcium 9.8 mg/dL (8.4-10.2); Carbon Dioxide 22 mmol/L (22-32); Chloride 103 mmol/L (98-107); Estimated Glomerular Filt Rate 28.6 mL/min (>60); Globulin 4.7 g/dL (1.7-4.1); Glucose 107 mg/dL (70-100); HEMOLYSIS < 15 (0-50); Potassium 3.5 mmol/L (3.4-5.1); Sodium 136 mmol/L (137-145); Total Protein 9.4 g/dL (6.3-8.2)
== END ==
PROVIDERS: PCP Family Medicine; Referring Provider Internal Medicine Nephrology; Visit Provider Internal Medicine Nephrology
DX: N18.4 Chronic kidney disease, stage 4 (severe) (principal); B18.2 Chronic viral hepatitis C
CPT/HCPCS: 36415; 80053; 85025; 87522

== ENCOUNTER → 2020-07-28 14:20 | Outpatient (CLI) | payer OTHER, MEDICAID, SELFPAY ==
[2019-12-13 04:40] VITALS: BMI 30.1
[2020-07-28] MEDS: COVID-19 VACC #1, MRNA(MOD) 100 MCG/0.5 ML VIAL IM (14:32)
== END ==
PROVIDERS: PCP Family Medicine; Visit Provider Internal Medicine
DX: Z23 Encounter for immunization (principal)
CPT/HCPCS: 0011A; 91301

== ENCOUNTER 2020-08-03 11:14 | Observation (INO) | payer OTHER, MEDICAID, SELFPAY ==
[2019-12-13 04:40] VITALS: BMI 30.1
[2020-08-03] VITALS (13 sets, daily range): BP systolic 119–185; BP diastolic 62–94; PULSE 77–89; RESP 18–32; TEMP 37.1–37.6; O2SAT 97–100; BMI 31.8; BMI 32.0
--- NOTE | 2020-08-03 11:33 | DI.RAD.S_ITS ---
PROCEDURE: XR CHEST 2V INDICATIONS: shortness of breath TECHNIQUE: 2 views of the chest were acquired. COMPARISON: [facility], , XR CHEST 1V, 12/13/2019, 3:30. FINDINGS: Surgical changes and devices: None. Lungs and pleura: Lungs are clear. No pleural effusions or pneumothorax. The interstitium is slightly prominent. Mediastinum: Mediastinal contours are normal. Central vasculature is mildly congested. Heart size is mildly enlarged, less so compared to the prior study. Bones and chest wall: No suspicious bony abnormalities. Soft tissues appear unremarkable. IMPRESSION: 1. Mild central vascular and interstitial congestion. Consider CHF. 2. Mild cardiomegaly, though less pronounced compared to the prior study. Dictated by: Teri Rtichie M.D. on 08/03/2020 at 11:18 Approved by: Teri Ritchie M.D. on 08/03/2020 at 11:19
[2020-08-03 11:41] LABS: Hematocrit 37.6 % (36-46); Hemoglobin 12.5 g/dL (12.0-16.0); Mean Corpuscular HGB Conc 33.1 % (30-36); Mean Corpuscular Hemoglobin 25.8 PG (26-34); Mean Corpuscular Volume 77.8 fL (80-100); Platelet Count 91 X10^3/uL (150-400); Red Blood Cell Count 4.83 X10^6/uL (4.0-5.2); Red Cell Distribution Width 13.8 % (11.6-14.8); White Blood Cell Count 21.2 X10^3/uL (4.5-11.0)
[2020-08-03 11:45] LABS: Add Manual Diff / Slide Review YES
[2020-08-03 11:52] LABS: INR 1.1 (0.9-1.3); Prothrombin Time 12.3 SECONDS (10.1-12.7)
--- NOTE | 2020-08-03 11:53 | PC.NURSE ---
Patient had the first round of moderna vaccine on friday. around friday she developed right anterior lower leg swelling and pain. Both of her legs are sore and it has caused her to feel weak. She has not been able to get around very well at home and has been having functional incontinence. She has decreased GFR at baseline but does not do dialysis. Shes been having SOB on exertion, cramps in her upper thigh muscles, fever, diarrhea.
[2020-08-03 12:02] LABS: Alanine Aminotransferase 27 IU/L (<35); Albumin Globulin Ratio 0.9 (1.0-2.8); Alkaline Phosphatase 114 U/L (38-126); Aspartate Aminotransferase 59 IU/L (14-36); BUN Creatinine Ratio 14.3 (6-22); Bilirubin Total 0.6 mg/dL (0.2-1.3); Blood Urea Nitrogen 45 mg/dL (7-17); Calcium 9.3 mg/dL (8.4-10.2); Carbon Dioxide 19 mmol/L (22-32); Chloride 96 mmol/L (98-107); Estimated Glomerular Filt Rate 15.3 mL/min (>60); Globulin 4.4 g/dL (1.7-4.1); Glucose 110 mg/dL (70-100); HEMOLYSIS < 15 (0-50); Sodium 130 mmol/L (137-145); Total Protein 8.4 g/dL (6.3-8.2)
[2020-08-03 12:03] LABS: Lactate (Lactic Acid) 1.4 mmol/L (0.7-2.1)
[2020-08-03 12:11] LABS: NT-proBNP (BNP-Adult 18+) 2100 pg/mL (<125)
[2020-08-03 12:19] LABS: Neutrophils Absolute Manual 19080 /uL (3000-5900); Total Cells Counted 100
[2020-08-03 12:20] LABS: Hemoglobin A1C% w Est Avg Glu 5.4 % (4.0-6.0)
[2020-08-03 12:21] LABS: RBC Morphology Normal Morphology
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
[2020-08-03 12:28] LABS: Alanine Aminotransferase 27 IU/L (<35); Alkaline Phosphatase 114 U/L (38-126); Aspartate Aminotransferase 59 IU/L (14-36); BUN Creatinine Ratio 14.3 (6-22); Bilirubin Total 0.6 mg/dL (0.2-1.3); Blood Urea Nitrogen 45 mg/dL (7-17); Calcium 9.3 mg/dL (8.4-10.2); Carbon Dioxide 19 mmol/L (22-32); Chloride 96 mmol/L (98-107); Estimated Glomerular Filt Rate 15.3 mL/min (>60); Glucose 110 mg/dL (70-100); Sodium 130 mmol/L (137-145)
[2020-08-03 12:29] LABS: Albumin Globulin Ratio 0.9 (1.0-2.8); Globulin 4.4 g/dL (1.7-4.1); HEMOLYSIS < 15 (0-50); Total Protein 8.4 g/dL (6.3-8.2)
--- NOTE | 2020-08-03 12:35 | DI.US.S_ITS ---
PROCEDURE: US PERIPH VENOUS LOW EXTREM LT INDICATIONS: RULE OUT DEEP VEIN THROMBOSIS TECHNIQUE: Real-time imaging, as well as color and pulse Doppler interrogation, were performed of the lower extremity deep veins from the inguinal ligament to the popliteal fossa. COMPARISON: None. FINDINGS: The common femoral, femoral and popliteal veins are normally compressible, and free of intraluminal thrombus. Color and pulse Doppler demonstrate normal phasic intraluminal flow. There is normal augmentation response to distal compression maneuver. Minimally complicated fluid collection in the posterior fossa measures 6.7 x 2.4 x 1.7 cm consistent with a Salazar cyst. Mild overlying subcutaneous edema. There are prominent inguinal lymph nodes which all maintain fatty roderick and appear benign/reactive. IMPRESSION: 1. No left lower extremity deep venous thrombosis. 2. Elongated, minimally complicated Salazar cyst. 3. Reactive inguinal lymph nodes. Dictated by: Teri Ritchie M.D. on 08/03/2020 at 12:39 Approved by: Teri Ritchie M.D. on 08/03/2020 at 12:41
[2020-08-03] MEDS: FUROSEMIDE 100 MG/10 ML VIAL 80 MG IV (13:22)
[2020-08-03 13:39] LABS: COVID19 - ADMIT (NP swab/PCR) Negative (Negative)
[2020-08-03 13:49] LABS: Amorphous Sediment Urine 1+; RBC Urine 0-1/HPF (0-5/HPF); Squamous Epithelial Cell Urine 1-5 /HPF (0-5/HPF); WBC Urine 0-1/HPF (0-5/HPF)
[2020-08-03 13:50] LABS: Bacteria Urine Occasional (0-1); Culture Indicated Urine Cult Not Indicated
[2020-08-03] MEDS: ACETAMINOPHEN 325 MG TABLET 975 MG PO (13:57)
[2020-08-03] MEDS: DAPTOMYCIN IV (16:00)
[2020-08-03] MEDS: SODIUM CHLORIDE 0.9% IV (16:00)
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
--- NOTE | 2020-08-03 18:25 | PC.NURSE ---
Addendum entered by Tasha Chavez R.N. 08/03/20 22:04: Notified WALLY Gunter of critical value potassium: 2.6. New orders. Original Note: Admission/Shift note: Patient arrived prior to shift change and was in bed at time of admission. AxOx3, can make needs known. Had a fall at home yesterday. C/o SOB on exertion, hx of CHF and reports feeling like she's got extra fluid. Edema to LLE only, 2+ pitting, erythema up to knee, painful to ambulate but not at rest. C/o recent urinal and bowel incontinence that isn't baseline but able to get up to BSC without incontinence. Tele: NSR. Call light and fall risk education given, patient calls appropriately. High fall risk, bed alarm on and functioning, call light in reach.
[2020-08-03 19:14] LABS: TSH w/ Reflex to FT4 1.16 uIU/mL (0.47-4.68)
[2020-08-03 21:04] LABS: BUN Creatinine Ratio 16.7 (6-22); Blood Urea Nitrogen 50 mg/dL (7-17); Calcium 8.3 mg/dL (8.4-10.2); Carbon Dioxide 20 mmol/L (22-32); Chloride 96 mmol/L (98-107); Estimated Glomerular Filt Rate 16.1 mL/min (>60); Glucose 113 mg/dL (70-100); HEMOLYSIS < 15 (0-50); Sodium 130 mmol/L (137-145)
[2020-08-03 21:22] LABS: Potassium 2.6 mmol/L (3.4-5.1)
[2020-08-03] MEDS: POTASSIUM CHLORIDE 20 MEQ TAB 40 MEQ PO (21:41)
[2020-08-03] MEDS: POTASSIUM CHLORIDE 40 MEQ in SODIUM CHLORIDE 0.9% 500 ML 130 ML IV (21:46)
[2020-08-04 00:24] VITALS: BP 134/94; PULSE 87; RESP 16; TEMP 37.5; O2SAT 97
[2020-08-04 04:00] VITALS: BP 135/76; PULSE 93; RESP 18; TEMP 37.4; O2SAT 97
[2020-08-04 05:39] LABS: Add Manual Diff / Slide Review NO; Basophils Absolute Auto 0 /uL (0-100); Basophils Percent Auto 0.1 % (0-2); Eosinophils Absolute Auto 0 /uL (0-450); Eosinophils Percent Auto 0.2 % (2-4); Hematocrit 32.8 % (36-46); Hemoglobin 10.5 g/dL (12.0-16.0); Lymphocytes Absolute Auto 1200 /uL (1100-4500); Lymphocytes Percent Auto 7.7 % (25-40); Mean Corpuscular HGB Conc 32.1 % (30-36); Mean Corpuscular Hemoglobin 25.1 PG (26-34); Mean Corpuscular Volume 78.2 fL (80-100); Monocytes Absolute Auto 1700 /uL (0-900); Monocytes Percent Auto 11.2 % (3-14); Neutrophils Absolute Auto 12500 /uL (1500-7000); Neutrophils Percent Auto 80.8 % (50-75); Platelet Count 96 X10^3/uL (150-400); Red Blood Cell Count 4.19 X10^6/uL (4.0-5.2); White Blood Cell Count 15.5 X10^3/uL (4.5-11.0)
[2020-08-04 05:49] LABS: BUN Creatinine Ratio 15.1 (6-22); Blood Urea Nitrogen 45 mg/dL (7-17); Calcium 8.5 mg/dL (8.4-10.2); Carbon Dioxide 20 mmol/L (22-32); Chloride 99 mmol/L (98-107); Estimated Glomerular Filt Rate 16.2 mL/min (>60); Glucose 115 mg/dL (70-100); HEMOLYSIS < 15 (0-50); Sodium 130 mmol/L (137-145)
[2020-08-04] MEDS: POTASSIUM CHLORIDE 20 MEQ TAB 40 MEQ PO (06:04)
[2020-08-04 08:00] VITALS: BP 133/77; PULSE 78; RESP 16; TEMP 36.9; O2SAT 96
[2020-08-04] MEDS: ACETAMINOPHEN 325 MG TABLET 650 MG PO ×2 (08:25→16:42)
[2020-08-04] MEDS: ASPIRIN EC 81 MG TABLET PO (08:26)
[2020-08-04] MEDS: HEPARIN 5,000 UNIT/ML VIAL 5000 UNIT SUBCUT ×2 (11:57→21:34)
[2020-08-04] MEDS: CEFAZOLIN 1 GM/50 ML FROZ.PIGGY IV ×3 (12:05→23:57)
[2020-08-04 12:11] VITALS: BP 146/77; PULSE 69; RESP 16; TEMP 36.6; O2SAT 97
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
[2020-08-04 15:44] VITALS: BP 131/77; PULSE 73; RESP 16; TEMP 36.4; O2SAT 97
--- NOTE | 2020-08-04 15:47 | PC.NURSE ---
Pt A&Ox3. Lethargic this a.m. medicated with 650 mg po tylenol per request for LLE leg pain. Pt napping. Good po intake for lunch when awakened. IV abx tolerated well w/o s/sx of adverse reaction. VSS, afebrile today. Swelling, redness and tenderness to LLE slightly improved she reports. Ambulating in room to bathroom independently with FWW. Continuous monitoring.
[2020-08-04 19:00] VITALS: BP 135/72; PULSE 73; RESP 18; TEMP 36.5; O2SAT 95
[2020-08-04] MEDS: METOPROLOL IR 25 MG TABLET PO (21:34)
[2020-08-05 00:07] VITALS: BP 120/76; PULSE 69; RESP 16; TEMP 36.7; O2SAT 96
[2020-08-05 04:55] VITALS: BP 162/91; PULSE 71; RESP 18; TEMP 36.7; O2SAT 99
[2020-08-05 06:13] VITALS: BP 147/93
[2020-08-05 06:49] LABS: Hematocrit 31.4 % (36-46); Hemoglobin 10.3 g/dL (12.0-16.0); Mean Corpuscular HGB Conc 32.7 % (30-36); Mean Corpuscular Hemoglobin 25.5 PG (26-34); Mean Corpuscular Volume 77.9 fL (80-100); Platelet Count 115 X10^3/uL (150-400); Red Blood Cell Count 4.03 X10^6/uL (4.0-5.2); Red Cell Distribution Width 14.3 % (11.6-14.8); White Blood Cell Count 13.6 X10^3/uL (4.5-11.0)
[2020-08-05 06:59] LABS: BUN Creatinine Ratio 16.7 (6-22); Blood Urea Nitrogen 40 mg/dL (7-17); Calcium 8.5 mg/dL (8.4-10.2); Carbon Dioxide 21 mmol/L (22-32); Chloride 106 mmol/L (98-107); Estimated Glomerular Filt Rate 20.9 mL/min (>60); Glucose 97 mg/dL (70-100); HEMOLYSIS < 15 (0-50); Potassium 3.4 mmol/L (3.4-5.1); Sodium 136 mmol/L (137-145)
[2020-08-05] MEDS: ACETAMINOPHEN 325 MG TABLET 650 MG PO (07:42)
--- NOTE | 2020-08-05 09:22 | CM.DANOTE ---
DCP: Case received, EMR reviewed and met with patient. Introduced self and role. Was able to obtain some information from patient regarding her baseline status, as well as her current living situation. DCP assessment completed with information currently available. Patient is a 59 year old female who admitted on 08/03 in the afternoon to the care of the hospitalist team. PCP: Dr. Stewart. Payer: confirmed: [facility]. Patient came to the hospital via private vehicle secondary to having a fever, as well as swelling to her left leg and redness. Patient was diagnosed with cellulitis, as well as acute CHF, and renal failure. Patient had recently had her first COVID vaccine, when the symptoms occurred. Met with patient. She was sitting up having her breakfast. Alert and oriented. Confirmed with patient that she resides alone. Mentioned her two daughters, stated, yes, they are my two daughters on paper. Stated, they are both pretty busy, so she doesn't see them often. Patient also indicated that she has visual problems, and is currently not driving. She relies on taxi service. Confirmed her PCP with Dr. Stewart. Stated, he hasn't even come over to see me. Let her know that he does not see his patients here at the hospital, but his clinic for follow up. Asked her if she has friends or family to pick her up. Patient stated, Yeah, I have that all figured out. Later she indicated that she could take a taxi. P: DCP to continue to follow. Will discuss during team rounds to see if patient is clinically ready for discharge today, or if custodial IV antibiotics may be needed. Tamara Hand RN/Chemical Treatment Plant Technician
[2020-08-05] MEDS: ASPIRIN EC 81 MG TABLET PO (09:54)
[2020-08-05] MEDS: METOPROLOL IR 25 MG TABLET PO (09:54)
[2020-08-05] MEDS: NIFEdipine 30 MG TAB ER PO (09:57)
--- NOTE | 2020-08-05 11:07 | PC.NURSE ---
Pt A&Ox3. C/O pain to LLE increased today but well controlled with prn tylenol. Noted minimal drainage to LLE, covered with allevyn and kerlix. Pt cleared for discharge this a.m. Pt anxious for discharge asking to leave at 1000 a.m. stating her friend who is a spotter driver picking her up is racking up the time. She states Print my paperwork and leave my medicine at my back door. Provided patient education about the importance of receiving her antibiotic and completing the course of her antibiotics so that her infection could heal. She verbalized understanding however wheeled herself out of the hospital with all of her home medications and belongings without waiting for nurse to officially review the discharge. RN was able to run after patient outside by the [facility] and give her physical prescriptions and review her instructions which she signed in agreement and understanding. She stated she understood the importance of follow up and taking medications, but was very anxious to go home and see her dog, and get to make her bed.
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
== END 2020-08-05 11:05 | disposition home or self-care (01) | DRG 720 ==
LOC: ED 12:22 → AC 13:41
PROVIDERS: Admitting Provider Internal Medicine; Emergency Provider Emergency Medicine; PCP Family Medicine; Referring Provider Emergency Medicine; Visit Provider Internal Medicine
DX: A41.9 Sepsis, unspecified organism (principal); L03.116 Cellulitis of left lower limb; N17.9 Acute kidney failure, unspecified; I13.0 Hypertensive heart and chronic kidney disease with heart failure and stage 1 through stage 4 chronic kidney disease, or unspecified chronic kidney disease; I50.23 Acute on chronic systolic (congestive) heart failure; N18.4 Chronic kidney disease, stage 4 (severe); I43 Cardiomyopathy in diseases classified elsewhere; E87.6 Hypokalemia; E87.1 Hypo-osmolality and hyponatremia; J44.9 Chronic obstructive pulmonary disease, unspecified; D69.59 Other secondary thrombocytopenia; B18.2 Chronic viral hepatitis C; E66.9 Obesity, unspecified; Z68.32 Body mass index [BMI] 32.0-32.9, adult; Z87.891 Personal history of nicotine dependence; Z20.822 Contact with and (suspected) exposure to COVID-19; R65.20 Severe sepsis without septic shock
CPT/HCPCS: 36415; 71046; 80048; 80053; 81003; 81015; 83036; 83605; 83880; 84443; 85007; 85025; 85027; 85610; 87040; 87635; 87797; 93005; 93971; 94762; 96374; 99284; 99285; C9803; G0378; J0878; J1644; J1940; J3480

== ENCOUNTER 2020-08-08 17:36 | Emergency (ER) | payer OTHER, MEDICAID, SELFPAY ==
[2020-08-03 15:44] VITALS: BMI 32.0
[2020-08-08 17:39] VITALS: BP 146/89; PULSE 84; RESP 24; TEMP 37.1; O2SAT 98
--- NOTE | 2020-08-08 17:50 | DI.RAD.S_ITS ---
PROCEDURE: XR CHEST 1V INDICATIONS: sepsis TECHNIQUE: One view of the chest was acquired. COMPARISON: [facility], CR, XR CHEST 2V, 08/03/2020, 11:51. FINDINGS: Surgical changes and devices: None. Lungs and pleura: Lungs are clear. No pleural effusions or pneumothorax. Mediastinum: Mediastinal contours appear normal. Heart size is enlarged. Bones and chest wall: No suspicious bony lesions. Overlying soft tissues appear unremarkable. IMPRESSION: No acute cardiopulmonary process. Dictated by: Dwight Sow M.D. on 08/08/2020 at 17:27 Approved by: Dwight Sow M.D. on 08/08/2020 at 17:27
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
[2020-08-08 18:26] LABS: Add Manual Diff / Slide Review NO; Basophils Absolute Auto 0 /uL (0-100); Basophils Percent Auto 0.3 % (0-2); Eosinophils Absolute Auto 200 /uL (0-450); Eosinophils Percent Auto 1.1 % (2-4); Hematocrit 34.4 % (36-46); Hemoglobin 11.3 g/dL (12.0-16.0); Lymphocytes Absolute Auto 1700 /uL (1100-4500); Lymphocytes Percent Auto 10.8 % (25-40); Mean Corpuscular HGB Conc 32.7 % (30-36); Mean Corpuscular Hemoglobin 25.7 PG (26-34); Mean Corpuscular Volume 78.5 fL (80-100); Monocytes Absolute Auto 1700 /uL (0-900); Neutrophils Absolute Auto 11900 /uL (1500-7000); Neutrophils Percent Auto 76.8 % (50-75); Platelet Count 307 X10^3/uL (150-400); Red Blood Cell Count 4.38 X10^6/uL (4.0-5.2); Red Cell Distribution Width 14.1 % (11.6-14.8); White Blood Cell Count 15.5 X10^3/uL (4.5-11.0)
[2020-08-08 18:45] LABS: Lactate (Lactic Acid) 0.7 mmol/L (0.7-2.1)
[2020-08-08 18:46] LABS: Alanine Aminotransferase 17 IU/L (<35); Albumin 3.7 g/dL (3.5-5.0); Albumin Globulin Ratio 0.9 (1.0-2.8); Alkaline Phosphatase 115 U/L (38-126); Aspartate Aminotransferase 36 IU/L (14-36); BUN Creatinine Ratio 16.1 (6-22); Bilirubin Total 0.4 mg/dL (0.2-1.3); Blood Urea Nitrogen 32 mg/dL (7-17); Calcium 9.2 mg/dL (8.4-10.2); Carbon Dioxide 24 mmol/L (22-32); Chloride 103 mmol/L (98-107); Estimated Glomerular Filt Rate 25.8 mL/min (>60); Globulin 4.3 g/dL (1.7-4.1); Glucose 106 mg/dL (70-100); HEMOLYSIS < 15 (0-50); Potassium 3.6 mmol/L (3.4-5.1); Sodium 137 mmol/L (137-145)
[2020-08-08] MEDS: SODIUM CHLORIDE 0.9% 1,000 ML 125 ML IV (18:49)
[2020-08-08] MEDS: MORPHINE 4 MG/ML INJ IV (18:49)
[2020-08-08 18:55] LABS: NT-proBNP (BNP-Adult 18+) 755 pg/mL (<125)
[2020-08-08 19:02] LABS: Procalcitonin 1.43 ng/mL (<0.5)
[2020-08-08 19:50] VITALS: BP 151/91; PULSE 84; RESP 20; O2SAT 97
[2020-08-08] MEDS: VANCOMYCIN 1,000 MG/200 ML PIGGYBACK 200 MG IV (20:18)
[2020-08-08 20:55] VITALS: TEMP 36.8
[2020-08-08] MEDS: HYDROCODONE/ACET 5/325 PREPACK 1 BOTTLE MISC (21:45)
== END 2020-08-08 19:40 | disposition home or self-care (01) ==
PROVIDERS: Emergency Medicine; Emergency Provider Emergency Medicine; PCP Family Medicine; Referring Provider Family Medicine
DX: L03.116 Cellulitis of left lower limb (principal)
CPT/HCPCS: 36415; 71045; 73700; 80053; 83605; 83880; 84145; 85025; 87040; 96361; 96365; 96375; 99284; J2270

== ENCOUNTER → 2020-08-25 13:55 | Outpatient (CLI) | payer OTHER, MEDICAID, SELFPAY ==
[2020-08-03 15:44] VITALS: BMI 32.0
[2020-08-25 14:58] LABS: BUN Creatinine Ratio 12.1 (6-22); Blood Urea Nitrogen 24 mg/dL (7-17); Calcium 9.7 mg/dL (8.4-10.2); Carbon Dioxide 21 mmol/L (22-32); Chloride 104 mmol/L (98-107); Estimated Glomerular Filt Rate 25.8 mL/min (>60); Glucose 103 mg/dL (70-100); HEMOLYSIS < 15 (0-50); Potassium 4.1 mmol/L (3.4-5.1); Sodium 136 mmol/L (137-145)
== END ==
PROVIDERS: PCP Family Medicine; Referring Provider Internal Medicine Nephrology; Visit Provider Internal Medicine Nephrology
DX: N18.4 Chronic kidney disease, stage 4 (severe) (principal)
CPT/HCPCS: 36415; 80048

== ENCOUNTER → 2020-09-05 16:13 | Outpatient (CLI) | payer OTHER, MEDICAID, SELFPAY ==
[2020-08-03 15:44] VITALS: BMI 32.0
[2020-09-05 17:19] LABS: Alanine Aminotransferase 11 IU/L (<35); Albumin Globulin Ratio 0.9 (1.0-2.8); Alkaline Phosphatase 130 U/L (38-126); Aspartate Aminotransferase 24 IU/L (14-36); BUN Creatinine Ratio 10.2 (6-22); Bilirubin Total 0.2 mg/dL (0.2-1.3); Blood Urea Nitrogen 18 mg/dL (7-17); Calcium 9.2 mg/dL (8.4-10.2); Carbon Dioxide 21 mmol/L (22-32); Chloride 104 mmol/L (98-107); Estimated Glomerular Filt Rate 29.8 mL/min (>60); Globulin 4.3 g/dL (1.7-4.1); Glucose 121 mg/dL (70-100); HEMOLYSIS < 15 (0-50); Sodium 135 mmol/L (137-145); Total Protein 8.3 g/dL (6.3-8.2)
[2020-09-05 17:28] LABS: NT-proBNP (BNP-Adult 18+) 459 pg/mL (<125)
== END ==
PROVIDERS: PCP Student in an Organized Health Care Education/Training Program; Referring Provider Student in an Organized Health Care Education/Training Program; Visit Provider Student in an Organized Health Care Education/Training Program
DX: I50.9 Heart failure, unspecified (principal); N18.32 Chronic kidney disease, stage 3b
CPT/HCPCS: 36415; 80053; 83880

== ENCOUNTER → 2020-10-23 10:30 | Outpatient (CLI) | payer OTHER, MEDICAID, SELFPAY ==
[2020-08-03 15:44] VITALS: BMI 32.0
[2020-10-23 12:01] LABS: BUN Creatinine Ratio 10.5 (6-22); Blood Urea Nitrogen 23 mg/dL (7-17); Calcium 9.5 mg/dL (8.4-10.2); Carbon Dioxide 22 mmol/L (22-32); Chloride 105 mmol/L (98-107); Estimated Glomerular Filt Rate 22.9 mL/min (>60); Glucose 100 mg/dL (70-100); HEMOLYSIS < 15 (0-50); Potassium 4.5 mmol/L (3.4-5.1); Sodium 137 mmol/L (137-145)
== END ==
PROVIDERS: Physician Assistant; PCP Student in an Organized Health Care Education/Training Program; Referring Provider Internal Medicine Nephrology; Visit Provider Internal Medicine Nephrology
DX: N18.4 Chronic kidney disease, stage 4 (severe) (principal)
CPT/HCPCS: 36415; 80048

== ENCOUNTER → 2021-06-18 10:05 | Outpatient (CLI) | payer OTHER, MEDICAID, SELFPAY ==
[2020-08-03 15:44] VITALS: BMI 32.0
[2021-06-18 11:44] LABS: Add Manual Diff / Slide Review NO; Basophils Absolute Auto 100 /uL (0-100); Basophils Percent Auto 0.8 % (0-2); Eosinophils Absolute Auto 300 /uL (0-450); Eosinophils Percent Auto 3.6 % (2-4); Hematocrit 27.2 % (36-46); Hemoglobin 8.5 g/dL (12.0-16.0); Lymphocytes Absolute Auto 2200 /uL (1100-4500); Lymphocytes Percent Auto 26.9 % (25-40); Mean Corpuscular HGB Conc 31.3 % (30-36); Mean Corpuscular Hemoglobin 25.6 PG (26-34); Mean Corpuscular Volume 81.8 fL (80-100); Monocytes Absolute Auto 900 /uL (0-900); Neutrophils Absolute Auto 4600 /uL (1500-7000); Neutrophils Percent Auto 57.7 % (50-75); Platelet Count 154 X10^3/uL (150-400); Red Blood Cell Count 3.33 X10^6/uL (4.0-5.2); Red Cell Distribution Width 14.2 % (11.6-14.8)
[2021-06-18 12:09] LABS: Alanine Aminotransferase 11 IU/L (<35); Albumin 3.9 g/dL (3.5-5.0); Albumin Globulin Ratio 1.1 (1.0-2.8); Alkaline Phosphatase 119 U/L (38-126); Aspartate Aminotransferase 20 IU/L (14-36); Bilirubin Total 0.3 mg/dL (0.2-1.3); Blood Urea Nitrogen 96 mg/dL (7-17); Calcium 8.6 mg/dL (8.4-10.2); Carbon Dioxide 18 mmol/L (22-32); Chloride 99 mmol/L (98-107); Globulin 3.5 g/dL (1.7-4.1); Glucose 93 mg/dL (70-100); HEMOLYSIS < 15 (0-50); Potassium 4.2 mmol/L (3.4-5.1); Sodium 131 mmol/L (137-145); Total Protein 7.4 g/dL (6.3-8.2)
[2021-06-18 12:20] LABS: BUN Creatinine Ratio 12.1 (6-22); Estimated Glomerular Filt Rate 5.2 mL/min (>60)
[2021-06-18 12:27] LABS: Vitamin D 25 Hydroxy (D3) < 12.8 ng/mL (30.0-100.0)
[2021-06-19 08:35] LABS: Parathyroid Hormone Int 250 pg/mL (15-65)
== END ==
PROVIDERS: PCP Student in an Organized Health Care Education/Training Program; Referring Provider Internal Medicine Nephrology; Visit Provider Internal Medicine Nephrology
DX: N18.4 Chronic kidney disease, stage 4 (severe) (principal); E83.9 Disorder of mineral metabolism, unspecified; M89.9 Disorder of bone, unspecified; D63.1 Anemia in chronic kidney disease
CPT/HCPCS: 36415; 80053; 82306; 83970; 85025

== ENCOUNTER 2021-07-30 13:31 | Emergency (ER) | payer OTHER, MEDICAID, SELFPAY ==
[2020-08-03 15:44] VITALS: BMI 32.0
[2021-07-30] VITALS (43 sets, daily range): BP systolic 143–258; BP diastolic 81–161; PULSE 63–111; RESP 14–43; TEMP 36.8; O2SAT 93–100; BMI 30.1
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
--- NOTE | 2021-07-30 14:25 | ED_ITS ---
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 catheter is seen in expected position with tip coiling in the pelvis.? Small amount of free fluid and air in the peritoneal cavity may be related to peritoneal dialysis or catheter placement.? Small amount of subcutaneous gas is also seen in the left abdominal wall, likely related to dialysis catheter placement. ? 2. Bowel wall thickening within the 2nd and 3rd portions of the duodenum with mild surrounding fat stranding is suspicious for nonspecific duodenitis.? Mild bowel wall thickening is also seen in the adjacent portion of the colon at the hepatic flexure, which may be reactive or secondary to colitis. ? 3. Mildly distended gallbladder without calcified gallstones.? This finding is likely reactive, but ultrasound could be obtained if there is suspicion for acute cholecystitis. ? ? Dictated by: Roe Delong M.D. on 07/30/2021 at 15:18 ? ? Approved by: Roe Delong M.D. on 07/30/2021 at 15:37?? CT scan - head: Radiologist's Impression: [address] [address] [address] Scan Report Signed Patient: Dayanna Mcneill MR#: [id number] : 1960 Acct:[id number] Age/Sex: 60 / F Date of Service: 07/30/21 Loc: ED Accession Number: [id number] ?? Procedure: CT head/brain wo con Ordering Provider: Sakshi Vargas D.O. PROCEDURE:? CT HEAD/BRAIN WO CON ? INDICATIONS:? altered mental status, s/p HD catheter placed. ? TECHNIQUE:? Noncontrast 4.5 mm thick angled axial sections acquired from the foramen magnum to the vertex, with coronal and sagittal reformats.? For radiation dose reduction, the following was used:? automated exposure control, adjustment of mA and/or kV according to patient size.? ? COMPARISON:? [facility], CT, CT HEAD/BRAIN WO CON, 08/30/2019, 15:14.? [facility], CT, HEAD WITHOUT CONTRAST, 07/18/2016, 13:30. ? FINDINGS:? Image quality:? Excellent.? ? CSF spaces:? Basal cisterns are patent.? No extra-axial fluid collections.? The ventricles are age-appropriate in size and shape.? ? Brain:? No acute intracranial hemorrhage or mass effect.? There are mild periventricular and deep white matter chronic small vessel ischemic changes.? There is intracranial internal carotid artery atherosclerosis.? ? Skull and face:? Calvarium and visualized facial bones appear intact, without suspicious lesions.? ? Sinuses:? Visualized sinuses and mastoids are clear.? ? IMPRESSION:? No acute intracranial abnormality. ? ? Dictated by: Roe Delong M.D. on 07/30/2021 at 15:16 ? ? Approved by: Roe Delong M.D. on 07/30/2021 at 15:18? ECG Data Attestation: I personally reviewed and interpreted this ECG as follows: Prior ECG tracings: available for review Interpretation: Sinus rhythm rate 88 AL 138 QRS 80 QTC of 474. No acute ST elevation or depression. Patient has prior EKG from 08/03/2020 nonspecific change. MDM Narrative Medical decision making narrative: This is a 60-year-old female comes emergency department for altered mental status, abdominal pain and vomiting after having peritoneal dialysis catheter placed on FridayNovember 26. Patient's friend who is at bedside spoke with her yesterday and states she was clear and oriented appropriate today she seems almost intoxicated. Patient herself describes herself as loopy and feeling almost drunk or intoxicated. She was prescribed codeine which she states she has taken. She also notes she has not been taking her blood pressure medications today and she is unsure if she took them yesterday. She has speech consistent with almost intoxicated but no lateralizing or focal neurologic changes. Her head CT is negative, she is not a tPA candidate based on her timing. She stated she missed dialysis but her electrolytes are appropriate. She has a leukocytosis, blood cultures are currently pending but she has been af ebrile no other signs of sepsis. Patient is quite hypertensive in the department to 50s over 120s even after 2 doses of labetalol. Her normal Catapres patch was placed and has had minimal improvement and nicardipine drip was initiated. At this time patient likely needs admission for hypertensive emergency with encephalopathy, because of her need for dialysis she will need transfer as we do not have this capability. Contacted [facility] or patient's nephrology is located. They do not have any bed availability but spoke with her data consultant who recommends adding her normal daily medications if she can take oral medications including hydralazine 100 mg which she takes t.i.d., nifedipine she is on 60 mg b.i.d.. I can start nicardipine drip and try to wean off if she improves with her blood pressure. They agree with plan for transfer and will seek placement at facility that has dialysis available. Patient signed out to Dr. Solorio while awaiting transfer to outside facility for hypertensive emergency in the setting of renal failure. We have contacted multiple facilities in the region and they are currently without availability. [facility] regional hotline was contacted as well. 07/30/21@ 20:21. I assumed care from Dr. Vargas. The patient has renal failure, she underwent placement of a peritoneal dialysis catheter 3 days ago. She apparently has been noncompliant with medications, she missed dialysis 2 days ago. There was suggestion of confusion upon arrival. Head CT showed no acute findings. There is no suggestion of sepsis. Regarding her blood pressure, she cannot be wean from the nicardipine drip. When I evaluated her, she could adequately answer orientation questions. GCS is 15. However she repeatedly wandered into unrelated comments during the conversation. Much of her comments were discussed on her little dog. She wants suggested a planned plan to leave Against Medical Advice. She went to see her own doctor. Fortunately she was convinced to stay as her blood pressure quickly went to 219 systolic without the nicardipine. She has hypertensive emergency with encephalopathy. Labs did not suggest an immediate need for dialysis. I discussed the case with Dr. Cartwright, Courier with [facility] in [place]. He pointed out that fluid overload could be contributing to the hypertensive urgency. He has agreed to accept the patient in transfer.-Ricardo GARCIA <Blayne Solorio MD - Last Filed: 07/30/21 23:43> Lab Data Labs: Lab Results 07/30/21 07/30/21 07/30/21 Range/Units 14:40 14:40 14:40 WBC 14.4 H (4.5-11.0) X10^3/uL RBC 4.30 (4.0-5.2) X10^6/uL Hgb 11.5 L (12.0-16.0) g/dL Hct 34.5 L (36-46) % MCV 80.2 (80-100) fL MCH 26.7 (26-34) PG MCHC 33.3 (30-36) % RDW 13.9 (11.6-14.8) % Plt Count 152 (150-400) X10^3/uL Neut % (Auto) 86.3 H (50-75) % Lymph % (Auto) 8.0 L (25-40) % [place] % (Auto) 5.3 (3-14) % Eos % (Auto) 0.0 L (2-4) % Baso % (Auto) 0.4 (0-2) % Neut # (Auto) 34709 H (7604-8828) /uL Lymph # (Auto) 1100 (5881-5494) /uL [place] # (Auto) 800 (0-900) /uL Eos # (Auto) 0 (0-450) /uL Baso # (Auto) 100 (0-100) /uL PT (10.1-12.7) SECONDS INR (0.9-1.3) APTT (26.4-36.2) SECONDS Sodium 136 L (137-145) mmol/L Potassium 3.9 (3.4-5.1) mmol/L Chloride 99 (98-107) mmol/L Carbon Dioxide 23 (22-32) mmol/L BUN 69 H (7-17) mg/dL Creatinine 9.74 H* (0.52-1.04) mg/dL Estimated GFR 4.1 L (>60) mL/min BUN/Creatinine Ratio 7.1 (6-22) Glucose 117 H (70-100) mg/dL Lactate 1.3 (0.7-2.1) mmol/L Calcium 9.2 (8.4-10.2) mg/dL Total Bilirubin 0.4 (0.2-1.3) mg/dL AST 25 (14-36) IU/L ALT 4 (<35) IU/L Alkaline Phosphatase 101 (38-126) U/L Ammonia (9-30) umol/L Total Creatine Kinase (30-135) U/L CK-MB (CK-2) CK-MB (CK-2) Rel Index Troponin I (0.01-0.034) ng/mL Total Protein 7.9 (6.3-8.2) g/dL Albumin 4.2 (3.5-5.0) g/dL Globulin 3.7 (1.7-4.1) g/dL Albumin/Globulin Ratio 1.1 (1.0-2.8) TSH (0.47-4.68) uIU/mL Prolactin 23.8 H (3.0-18.6) ng/mL Urine Color Urine Appearance Urine pH (4.5-8.0) Ur Specific [place] (1.000-1.035) Urine Protein (Negative) Urine Glucose (UA) (Negative) g/dL Urine Ketones (NEGATIVE) Urine Occult Blood (Negative) Urine Nitrate (Negative) Urine Bilirubin (NEGATIVE) Urine Urobilinogen (0.2) E.U./dL Ur Leukocyte Esterase (NEGATIVE) Urine RBC (0-5/HPF) Urine WBC (0-5/HPF) Ur Squamous Epith Cells (0-5/HPF) Urine Bacteria (None) Urine Yeast (None) Ur Culture Indicated? U Opiates 300ng/mL cut (Negative) Ur Oxycodone Screen (Negative) Urine Methadone Screen (Negative) Ur Barbiturates Screen (Negative) U Tricyclic Antidepress (Negative) Ur Phencyclidine Scrn (Negative) Ur Amphetamines Screen (Negative) U Methamphetamines Scrn (Negative) Ur MDMA Scrn (Ecstasy) (Negative) U Benzodiazepines Scrn (Negative) Urine Cocaine Screen (Negative) U Marijuana (THC) Screen (Negative) Ethyl Alcohol < 10 ( - 10) mg/dL SARS-CoV-2 (PCR) (Negative) 07/30/21 07/30/21 07/30/21 Range/Units 14:40 14:40 14:40 WBC (4.5-11.0) X10^3/uL RBC (4.0-5.2) X10^6/uL Hgb (12.0-16.0) g/dL Hct (36-46) % MCV (80-100) fL MCH (26-34) PG MCHC (30-36) % RDW (11.6-14.8) % Plt Count (150-400) X10^3/uL Neut % (Auto) (50-75) % Lymph % (Auto) (25-40) % [place] % (Auto) (3-14) % Eos % (Auto) (2-4) % Baso % (Auto) (0-2) % Neut # (Auto) (5957-2020) /uL Lymph # (Auto) (5275-2156) /uL [place] # (Auto) (0-900) /uL Eos # (Auto) (0-450) /uL Baso # (Auto) (0-100) /uL PT 10.6 (10.1-12.7) SECONDS INR 0.9 (0.9-1.3) APTT 27 D (26.4-36.2) SECONDS Sodium (137-145) mmol/L Potassium (3.4-5.1) mmol/L Chloride (98-107) mmol/L Carbon Dioxide (22-32) mmol/L BUN (7-17) mg/dL Creatinine (0.52-1.04) mg/dL Estimated GFR (>60) mL/min BUN/Creatinine Ratio (6-22) Glucose (70-100) mg/dL Lactate (0.7-2.1) mmol/L Calcium (8.4-10.2) mg/dL Total Bilirubin (0.2-1.3) mg/dL AST (14-36) IU/L ALT (<35) IU/L Alkaline Phosphatase (38-126) U/L Ammonia (9-30) umol/L Total Creatine Kinase 82 (30-135) U/L CK-MB (CK-2) TNP CK-MB (CK-2) Rel Index TNP Troponin I 0.072 H (0.01-0.034) ng/mL Total Protein (6.3-8.2) g/dL Albumin (3.5-5.0) g/dL Globulin (1.7-4.1) g/dL Albumin/Globulin Ratio (1.0-2.8) TSH 0.373 L (0.47-4.68) uIU/mL Prolactin (3.0-18.6) ng/mL Urine Color Urine Appearance Urine pH (4.5-8.0) Ur Specific [place] (1.000-1.035) Urine Protein (Negative) Urine Glucose (UA) (Negative) g/dL Urine Ketones (NEGATIVE) Urine Occult Blood (Negative) Urine Nitrate (Negative) Urine Bilirubin (NEGATIVE) Urine Urobilinogen (0.2) E.U./dL Ur Leukocyte Esterase (NEGATIVE) Urine RBC (0-5/HPF) Urine WBC (0-5/HPF) Ur Squamous Epith Cells (0-5/HPF) Urine Bacteria (None) Urine Yeast (None) Ur Culture Indicated? U Opiates 300ng/mL cut (Negative) Ur Oxycodone Screen (Negative) Urine Methadone Screen (Negative) Ur Barbiturates Screen (Negative) U Tricyclic Antidepress (Negative) Ur Phencyclidine Scrn (Negative) Ur Amphetamines Screen (Negative) U Methamphetamines Scrn (Negative) Ur MDMA Scrn (Ecstasy) (Negative) U Benzodiazepines Scrn (Negative) Urine Cocaine Screen (Negative) U Marijuana (THC) Screen (Negative) Ethyl Alcohol ( - 10) mg/dL SARS-CoV-2 (PCR) (Negative) 07/30/21 07/30/21 07/30/21 Range/Units 17:20 20:01 20:01 WBC (4.5-11.0) X10^3/uL RBC (4.0-5.2) X10^6/uL Hgb (12.0-16.0) g/dL Hct (36-46) % MCV (80-100) fL MCH (26-34) PG MCHC (30-36) % RDW (11.6-14.8) % Plt Count (150-400) X10^3/uL Neut % (Auto) (50-75) % Lymph % (Auto) (25-40) % [place] % (Auto) (3-14) % Eos % (Auto) (2-4) % Baso % (Auto) (0-2) % Neut # (Auto) (2221-7498) /uL Lymph # (Auto) (5239-2757) /uL [place] # (Auto) (0-900) /uL Eos # (Auto) (0-450) /uL Baso # (Auto) (0-100) /uL PT (10.1-12.7) SECONDS INR (0.9-1.3) APTT (26.4-36.2) SECONDS Sodium (137-145) mmol/L Potassium (3.4-5.1) mmol/L Chloride (98-107) mmol/L Carbon Dioxide (22-32) mmol/L BUN (7-17) mg/dL Creatinine (0.52-1.04) mg/dL Estimated GFR (>60) mL/min BUN/Creatinine Ratio (6-22) Glucose (70-100) mg/dL Lactate (0.7-2.1) mmol/L Calcium (8.4-10.2) mg/dL Total Bilirubin (0.2-1.3) mg/dL AST (14-36) IU/L ALT (<35) IU/L Alkaline Phosphatase (38-126) U/L Ammonia (9-30) umol/L Total Creatine Kinase (30-135) U/L CK-MB (CK-2) CK-MB (CK-2) Rel Index Troponin I (0.01-0.034) ng/mL Total Protein (6.3-8.2) g/dL Albumin (3.5-5.0) g/dL Globulin (1.7-4.1) g/dL Albumin/Globulin Ratio (1.0-2.8) TSH (0.47-4.68) uIU/mL Prolactin (3.0-18.6) ng/mL Urine Color Yellow Urine Appearance Clear Urine pH 6.5 (4.5-8.0) Ur Specific [place] 1.015 (1.000-1.035) Urine Protein 3+ H (Negative) Urine Glucose (UA) Negative (Negative) g/dL Urine Ketones Negative (NEGATIVE) Urine Occult Blood 2+ H (Negative) Urine Nitrate Negative (Negative) Urine Bilirubin Negative (NEGATIVE) Urine Urobilinogen 0.2 (0.2) E.U./dL Ur Leukocyte Esterase Trace H (NEGATIVE) Urine RBC 1-5/hpf (0-5/HPF) Urine WBC 1-5/hpf (0-5/HPF) Ur Squamous Epith Cells 1-5 /hpf (0-5/HPF) Urine Bacteria Few (2-10) H (None) Urine Yeast 1-5/hpf H (None) Ur Culture Indicated? Specimen cultured U Opiates 300ng/mL cut Negative (Negative) Ur Oxycodone Screen Positive H (Negative) Urine Methadone Screen Negative (Negative) Ur Barbiturates Screen Negative (Negative) U Tricyclic Antidepress Negative (Negative) Ur Phencyclidine Scrn Negative (Negative) Ur Amphetamines Screen Negative (Negative) U Methamphetamines Scrn Negative (Negative) Ur MDMA Scrn (Ecstasy) Negative (Negative) U Benzodiazepines Scrn Negative (Negative) Urine Cocaine Screen Negative (Negative) U Marijuana (THC) Screen Negative (Negative) Ethyl Alcohol ( - 10) mg/dL SARS-CoV-2 (PCR) Negative (Negative) 07/30/21 Range/Units 20:04 WBC (4.5-11.0) X10^3/uL RBC (4.0-5.2) X10^6/uL Hgb (12.0-16.0) g/dL Hct (36-46) % MCV (80-100) fL MCH (26-34) PG MCHC (30-36) % RDW (11.6-14.8) % Plt Count (150-400) X10^3/uL Neut % (Auto) (50-75) % Lymph % (Auto) (25-40) % [place] % (Auto) (3-14) % Eos % (Auto) (2-4) % Baso % (Auto) (0-2) % Neut # (Auto) (8961-4256) /uL Lymph # (Auto) (3803-9254) /uL [place] # (Auto) (0-900) /uL Eos # (Auto) (0-450) /uL Baso # (Auto) (0-100) /uL PT (10.1-12.7) SECONDS INR (0.9-1.3) APTT (26.4-36.2) SECONDS Sodium (137-145) mmol/L Potassium (3.4-5.1) mmol/L Chloride (98-107) mmol/L Carbon Dioxide (22-32) mmol/L BUN (7-17) mg/dL Creatinine (0.52-1.04) mg/dL Estimated GFR (>60) mL/min BUN/Creatinine Ratio (6-22) Glucose (70-100) mg/dL Lactate (0.7-2.1) mmol/L Calcium (8.4-10.2) mg/dL Total Bilirubin (0.2-1.3) mg/dL AST (14-36) IU/L ALT (<35) IU/L Alkaline Phosphatase (38-126) U/L Ammonia < 9 L (9-30) umol/L Total Creatine Kinase (30-135) U/L CK-MB (CK-2) CK-MB (CK-2) Rel Index Troponin I (0.01-0.034) ng/mL Total Protein (6.3-8.2) g/dL Albumin (3.5-5.0) g/dL Globulin (1.7-4.1) g/dL Albumin/Globulin Ratio (1.0-2.8) TSH (0.47-4.68) uIU/mL Prolactin (3.0-18.6) ng/mL Urine Color Urine Appearance Urine pH (4.5-8.0) Ur Specific [place] (1.000-1.035) Urine Protein (Negative) Urine Glucose (UA) (Negative) g/dL Urine Ketones (NEGATIVE) Urine Occult Blood (Negative) Urine Nitrate (Negative) Urine Bilirubin (NEGATIVE) Urine Urobilinogen (0.2) E.U./dL Ur Leukocyte Esterase (NEGATIVE) Urine RBC (0-5/HPF) Urine WBC (0-5/HPF) Ur Squamous Epith Cells (0-5/HPF) Urine Bacteria (None) Urine Yeast (None) Ur Culture Indicated? U Opiates 300ng/mL cut (Negative) Ur Oxycodone Screen (Negative) Urine Methadone Screen (Negative) Ur Barbiturates Screen (Negative) U Tricyclic Antidepress (Negative) Ur Phencyclidine Scrn (Negative) Ur Amphetamines Screen (Negative) U Methamphetamines Scrn (Negative) Ur MDMA Scrn (Ecstasy) (Negative) U Benzodiazepines Scrn (Negative) Urine Cocaine Screen (Negative) U Marijuana (THC) Screen (Negative) Ethyl Alcohol ( - 10) mg/dL SARS-CoV-2 (PCR) (Negative) [facility] Narrative Medical decision making narrative: This is a 60-year-old female comes emergency department for altered mental status, abdominal pain and vomiting after having peritoneal dialysis catheter placed on FridayNovember 26. Patient's friend who is at bedside spoke with her yesterday and states she was clear and oriented appropriate today she seems almost intoxicated. Patient herself describes herself as loopy and feeling almost drunk or intoxicated. She was prescribed codeine which she states she has taken. She also notes she has not been taking her blood pressure medications today and she is unsure if she took them yesterday. She has speech consistent with almost intoxicated but no lateralizing or focal neurologic changes. Her head CT is negative, she is not a tPA candidate based on her timing. She stated she missed dialysis but her electrolytes are appropriate. She has a leukocytosis, blood cultures are currently pending but she has been afebrile no other signs of sepsis. Patient is quite hypertensive in the department to 50s over 120s even after 2 doses of labetalol. Her normal Catapres patch was placed and has had minimal improvement and nicardipine drip was initiated. At this time patient likely needs admission for hypertensive emergency with encephalopathy, because of her need for dialysis she will need transfer as we do not have this capability. Contacted [facility] or patient's nephrology is located. They do not have any bed availability but spoke with her data consultant who recommends adding her normal daily medications if she can take oral medications including hydralazine 100 mg which she takes t.i.d., nifedipine she is on 60 mg b.i.d.. I can start nicardipine drip and try to wean off if she improves with her blood pressure. They agree with plan for transfer and will seek placement at facility that has dialysis available. Patient signed out to Dr. Solorio while awaiting transfer to outside facility for hypertensive emergency in the setting of renal failure. 07/30/21@ 20:21. I assumed care from Dr. Vargas. The patient has renal failure, she underwent placement of a peritoneal dialysis catheter 3 days ago. She apparently has been noncompliant with medications, she missed dialysis 2 days ago. There was suggestion of confusion upon arrival. Head CT showed no acute findings. There is no suggestion of sepsis. Regarding her blood pressure, she cannot be wean from the nicardipine drip. When I evaluated her, she could adequately answer orientation questions. GCS is 15. However she repeatedly wandered into unrelated comments during the conversation. Much of her comments were discussed on her little dog. She wants suggested a planned plan to leave Against Medical Advice. She went to see her own doctor. Fortunately she was convinced to stay as her blood pressure quickly went to 219 systolic without the nicardipine. She has hypertensive emergency with encephalopathy. Labs did not suggest an immediate need for dialysis. I discussed the case with Dr. Cartwright, Courier with [facility] in [place]. He pointed out that fluid overload could be contributing to the hypertensive urgency. He has agreed to accept the patient in transfer.-Ricardo GARCIA <Blayne Solorio MD - Last Filed: 07/30/21 23:43> Critical Care Time Critical Care Time: Yes Total Critical Care Time: 90 Attestation: Time included initial patient assessment, review of EKG, lab in radiology data, and multiple clinical decisions. Multiple consultations were necessary to complete the transfer. Discharge Plan Departure Patient Disposition: [facility] Clinical Impression: Hypertensive encephalopathy, Hypertensive emergency, End stage renal disease on dialysis Prescriptions: No Action hydralazine 50 mg tablet 50 mg PO TIDWM 30 Days Qty: 90 1RF atorvastatin 40 mg tablet 40 mg PO BEDTIME Qty: 90 1RF nifedipine 30 mg tablet extended release 24hr See Rx Instructions .ROUTE .COMPLEX Qty: 30 0RF Dose Instruction: TAKE 1 TABLET BY MOUTH EVERY DAY Rx Instructions: TAKE 1 TABLET BY MOUTH EVERY DAY carvedilol 12.5 mg tablet 12.5 mg PO BID Qty: 180 3RF Rx Instructions: must administer with a meal/food aspirin 81 mg tablet,delayed release (DR/EC) 81 mg PO DAILY Qty: 90 2RF clonidine 0.2 mg/24 hr patch weekly 1 patch transdermal QWEEK 0RF furosemide [Lasix] 40 mg tablet 80 mg PO BID 0RF Referrals: Hai Parnell MD [Primary Care Provider] -
--- NOTE | 2021-07-30 14:32 | PC.NURSE ---
Requested DI SEEMA Alexander, he is now at bedside to access IV and obtain labs.
--- NOTE | 2021-07-30 14:52 | DI.CT.S_ITS ---
PROCEDURE: CT KIDNEY URETER BLADDER (KUB) INDICATIONS: altered mental status, s/p peritoneal HD catheter placed Fri TECHNIQUE: Axial sections were acquired from the lung bases to the pubic symphysis. Coronal and sagittal reformats were performed. For radiation dose reduction, the following was used: automated exposure control, adjustment of mA and/or kV according to patient size. COMPARISON: [facility], CT, CT ABDOMEN PELVIS WITH CONTRAST, 09/08/2018, 3:26. FINDINGS: Image quality: Excellent. Lung bases: Unremarkable. Heart: No significant findings. URINARY: Right Kidney: No stones or hydronephrosis. Right Ureter: No hydroureter. Left Kidney: No stones or hydronephrosis. Left Ureter: No hydroureter. Bladder: Normal wall thickness. No stones. ABDOMEN: Liver: Unremarkable. Gallbladder: Gallbladder is mildly distended. No radiopaque gallstones are seen. Biliary ducts: Unremarkable. Pancreas: Unremarkable. Spleen: Unremarkable. Adrenal Glands: Unremarkable. Stomach and Bowel: Multiple diverticula are seen in the colon without signs of acute diverticulitis. A small hiatal hernia is present. There is bowel wall thickening in the 2nd and 3rd portions of the duodenum with mild surrounding fat stranding. Mild bowel wall thickening is seen in the adjacent portion of the colon near the hepatic flexure. No signs of bowel obstruction. Peritoneum: A peritoneal dialysis catheter is seen in expected position in the pelvis. A small amount of pneumoperitoneum is seen in the left upper quadrant. There is a trace free fluid in the abdomen and pelvis. Ventral Wall: Soft tissue gas is seen within the left anterior abdominal wall. Abdominal Nodes: No enlarged retroperitoneal or mesenteric lymph nodes. Vessels: Aorta and inferior vena cava are normal in size. PELVIS: Pelvic Organs: Irregular contour of the uterus is most likely due to fibroids. Pelvic Nodes: Unremarkable. Miscellaneous: No inguinal hernias are seen. Bones: Unremarkable. IMPRESSION: 1. Peritoneal dialysis catheter is seen in expected position with tip coiling in the pelvis. Small amount of free fluid and air in the peritoneal cavity may be related to peritoneal dialysis or catheter placement. Small amount of subcutaneous gas is also seen in the left abdominal wall, likely related to dialysis catheter placement. 2. Bowel wall thickening within the 2nd and 3rd portions of the duodenum with mild surrounding fat stranding is suspicious for nonspecific duodenitis. Mild bowel wall thickening is also seen in the adjacent portion of the colon at the hepatic flexure, which may be reactive or secondary to colitis. 3. Mildly distended gallbladder without calcified gallstones. This finding is likely reactive, but ultrasound could be obtained if there is suspicion for acute cholecystitis. Dictated by: Roe Delong M.D. on 07/30/2021 at 15:18 Approved by: Roe Delong M.D. on 07/30/2021 at 15:37
--- NOTE | 2021-07-30 15:00 | DI.CT.S_ITS ---
PROCEDURE: CT HEAD/BRAIN WO CON INDICATIONS: altered mental status, s/p HD catheter placed. TECHNIQUE: Noncontrast 4.5 mm thick angled axial sections acquired from the foramen magnum to the vertex, with coronal and sagittal reformats. For radiation dose reduction, the following was used: automated exposure control, adjustment of mA and/or kV according to patient size. COMPARISON: [facility], CT, CT HEAD/BRAIN WO CON, 08/30/2019, 15:14. [facility], CT, HEAD WITHOUT CONTRAST, 07/18/2016, 13:30. FINDINGS: Image quality: Excellent. CSF spaces: Basal cisterns are patent. No extra-axial fluid collections. The ventricles are age-appropriate in size and shape. Brain: No acute intracranial hemorrhage or mass effect. There are mild periventricular and deep white matter chronic small vessel ischemic changes. There is intracranial internal carotid artery atherosclerosis. Skull and face: Calvarium and visualized facial bones appear intact, without suspicious lesions. Sinuses: Visualized sinuses and mastoids are clear. IMPRESSION: No acute intracranial abnormality. Dictated by: Roe Delong M.D. on 07/30/2021 at 15:16 Approved by: Roe Delong M.D. on 07/30/2021 at 15:18
[2021-07-30 15:03] LABS: INR 0.9 (0.9-1.3); Prothrombin Time 10.6 SECONDS (10.1-12.7)
[2021-07-30 15:06] LABS: Add Manual Diff / Slide Review NO; Basophils Absolute Auto 100 /uL (0-100); Basophils Percent Auto 0.4 % (0-2); Eosinophils Absolute Auto 0 /uL (0-450); Hematocrit 34.5 % (36-46); Hemoglobin 11.5 g/dL (12.0-16.0); Lymphocytes Absolute Auto 1100 /uL (1100-4500); Mean Corpuscular HGB Conc 33.3 % (30-36); Mean Corpuscular Hemoglobin 26.7 PG (26-34); Mean Corpuscular Volume 80.2 fL (80-100); Monocytes Absolute Auto 800 /uL (0-900); Monocytes Percent Auto 5.3 % (3-14); Neutrophils Absolute Auto 12400 /uL (1500-7000); Neutrophils Percent Auto 86.3 % (50-75); PTT Partial Thromboplastin Tim 27 SECONDS (26.4-36.2); Platelet Count 152 X10^3/uL (150-400); Red Cell Distribution Width 13.9 % (11.6-14.8); White Blood Cell Count 14.4 X10^3/uL (4.5-11.0)
[2021-07-30 15:12] LABS: Alanine Aminotransferase 4 IU/L (<35); Albumin 4.2 g/dL (3.5-5.0); Albumin Globulin Ratio 1.1 (1.0-2.8); Alkaline Phosphatase 101 U/L (38-126); Aspartate Aminotransferase 25 IU/L (14-36); BUN Creatinine Ratio 7.1 (6-22); Bilirubin Total 0.4 mg/dL (0.2-1.3); Blood Urea Nitrogen 69 mg/dL (7-17); Calcium 9.2 mg/dL (8.4-10.2); Carbon Dioxide 23 mmol/L (22-32); Chloride 99 mmol/L (98-107); Estimated Glomerular Filt Rate 4.1 mL/min (>60); Ethanol (ETOH) < 10 mg/dL; Globulin 3.7 g/dL (1.7-4.1); Glucose 117 mg/dL (70-100); HEMOLYSIS < 15 (0-50); Lactate (Lactic Acid) 1.3 mmol/L (0.7-2.1); Potassium 3.9 mmol/L (3.4-5.1); Sodium 136 mmol/L (137-145); Total Protein 7.9 g/dL (6.3-8.2)
[2021-07-30 15:27] LABS: Prolactin 23.8 ng/mL (3.0-18.6)
[2021-07-30] MEDS: ONDANSETRON 4 MG/2 ML INJ IV (15:27)
[2021-07-30 15:41] LABS: Thyroid Stimulating Hormone 0.373 uIU/mL (0.47-4.68)
[2021-07-30] MEDS: LABETALOL 20 MG/4 ML SYRINGE 10 MG IV ×2 (15:54→16:27)
--- NOTE | 2021-07-30 15:56 | DI.RAD.S_ITS ---
PROCEDURE: XR CHEST 1V INDICATIONS: lump on chest TECHNIQUE: One view of the chest was acquired. COMPARISON: [facility], CR, XR CHEST 1V, 08/08/2020, 18:18. FINDINGS: Surgical changes and devices: Right Port-A-Cath is present. Lungs and pleura: Lungs are clear. No pleural effusions or pneumothorax. Mediastinum: Mediastinal contours appear normal. Heart size is mildly enlarged. Bones and chest wall: No suspicious bony lesions. Overlying soft tissues appear unremarkable. IMPRESSION: No acute pulmonary process. Dictated by: Sruthi Cortes M.D. on 07/30/2021 at 16:34 Approved by: Sruthi Cortes M.D. on 07/30/2021 at 16:34
--- NOTE | 2021-07-30 15:56 | DI.US.S_ITS ---
PROCEDURE: US BREAST LT LIMITED COMPARISON: [facility], CR, XR CHEST 1V, 07/30/2021, 16:00. INDICATIONS: LEFT BREAST LUMP FINDINGS: Ultrasound was performed in the area of interest. There is edema and heterogeneous, irregular mass-like soft tissue in the superior aspect of the left breast and/or chest wall. On Doppler ultrasound, there is no vascularity within the mass-like soft tissue. This was reportedly palpable and hard on palpation by physical exam. IMPRESSION: Soft tissue edema and heterogeneous, irregular mass-like soft tissue in the superior aspect of the left breast or chest wall demonstrating no vascularity on Doppler ultrasound. It is most likely benign such as hematomas. Recommend clinical correlation and a short interval follow-up ultrasound and mammogram in 1 month to ensure resolution. The report was discussed with Dr. Vargas on 07/30/2021 at 1905 hours. Please note the report is also entered in [facility]. Dictated by: Trinity Easton M.D. on 07/30/2021 at 18:37 Approved by: Trinity Easton M.D. on 07/31/2021 at 10:43
[2021-07-30] MEDS: cloNIDine TTS 0.2 MG PATCH TOP (16:22)
[2021-07-30 17:20] LABS: Creatine Kinase 82 U/L (30-135)
[2021-07-30] MEDS: NICARDIPINE 25 MG in SODIUM CHLORIDE 0.9% 240 ML 50 ML IV (17:26)
[2021-07-30 17:32] LABS: Troponin I 0.072 ng/mL (0.01-0.034)
--- NOTE | 2021-07-30 17:54 | PC.NURSE ---
pt has fallen asleep after verbal consent for nicardipine. 14ml infused when blood pressure decreased to 188/95. nicardipine paused while BP reassessed. provider aware.
[2021-07-30 18:44] LABS: COVID19 -Nasal RAPID Negative (Negative)
--- NOTE | 2021-07-30 19:14 | PC.NURSE ---
Discussed the vs with dr jolley, rising of bp, she verbalized to restart nicardipine gtt, in 30min -60min reevaluate for PO meds.
[2021-07-30] MEDS: HYDRALAZINE 25 MG TABLET 100 MG PO (19:59)
[2021-07-30] MEDS: NIFEdipine 30 MG TAB ER PO (20:00)
[2021-07-30 20:15] LABS: UR Morphine/Opiate cutoff 300 Negative (Negative); Ur Creatinine Normal (Normal); Ur Specific Gravity Normal (Normal); Urine Amphetamines Negative (Negative); Urine Barbiturates Negative (Negative); Urine Benzodiazepines Negative (Negative); Urine Cocaine Negative (Negative); Urine MDMA Negative (Negative); Urine Methadone Negative (Negative); Urine Methamphetamines Negative (Negative); Urine Oxycodone Positive (Negative); Urine Phencyclidine Negative (Negative); Urine Tetrahydrocannabinol Negative (Negative); Urine Tricyclic Antidepressant Negative (Negative); Urine pH Normal (Normal)
[2021-07-30 20:18] LABS: Appearance Urine UA CLEAR; Bilirubin Urine UA NEGATIVE (NEGATIVE); Color Urine UA YELLOW; Glucose Urine UA NEGATIVE (Negative); Ketones Urine UA NEGATIVE (NEGATIVE); Leukocyte Esterase Urine UA TRACE (NEGATIVE); Nitrite Urine UA NEGATIVE (Negative); Occult Blood Urine UA 2+ (Negative); Protein Urine UA 3+ (Negative); Specific Gravity Urine UA 1.015 (1.000-1.035); Urobilinogen Urine UA 0.2 E.U./dL (0.2)
[2021-07-30 20:28] LABS: Ammonia (NH3) < 9 umol/L (9-30)
[2021-07-30 20:29] LABS: pH Urine UA 6.5 (4.5-8.0)
[2021-07-30 20:32] LABS: RBC Urine 1-5/HPF (0-5/HPF); WBC Urine 1-5/HPF (0-5/HPF)
[2021-07-30 20:33] LABS: Bacteria Urine Few (2-10); Culture Indicated Urine Specimen Cultured; Squamous Epithelial Cell Urine 1-5 /HPF (0-5/HPF)
== END 2021-07-30 23:42 | disposition short-term general hospital (02) ==
PROVIDERS: Emergency Provider Emergency Medicine; PCP Student in an Organized Health Care Education/Training Program
DX: I67.4 Hypertensive encephalopathy (principal); I16.1 Hypertensive emergency; I13.2 Hypertensive heart and chronic kidney disease with heart failure and with stage 5 chronic kidney disease, or end stage renal disease; N18.6 End stage renal disease; I50.9 Heart failure, unspecified; Z99.2 Dependence on renal dialysis; Z87.891 Personal history of nicotine dependence; Z20.822 Contact with and (suspected) exposure to COVID-19
CPT/HCPCS: 36415; 70450; 71045; 74176; 76642; 80053; 80305; 80320; 81001; 82140; 82550; 83605; 84146; 84443; 84484; 85025; 85610; 85730; 87040; 87086; 87635; 93005; 93010; 96365; 96375; 96376; 99285; 99291; 99292; C9803; J1642; J2405

== ENCOUNTER → 2021-09-19 15:46 | Outpatient (CLI) | payer OTHER, MEDICAID, SELFPAY ==
[2020-08-03 15:44] VITALS: BMI 32.0
[2021-09-19 16:36] LABS: Add Manual Diff / Slide Review NO; Basophils Absolute Auto 100 /uL (0-100); Eosinophils Absolute Auto 100 /uL (0-450); Eosinophils Percent Auto 1.1 % (2-4); Hematocrit 33.5 % (36-46); Hemoglobin 10.9 g/dL (12.0-16.0); Lymphocytes Absolute Auto 1600 /uL (1100-4500); Mean Corpuscular HGB Conc 32.4 % (30-36); Mean Corpuscular Hemoglobin 28.1 PG (26-34); Mean Corpuscular Volume 86.5 fL (80-100); Monocytes Absolute Auto 400 /uL (0-900); Monocytes Percent Auto 5.5 % (3-14); Neutrophils Absolute Auto 4900 /uL (1500-7000); Neutrophils Percent Auto 69.4 % (50-75); Platelet Count 220 X10^3/uL (150-400); Red Blood Cell Count 3.87 X10^6/uL (4.0-5.2); Red Cell Distribution Width 15.5 % (11.6-14.8); White Blood Cell Count 7.1 X10^3/uL (4.5-11.0)
[2021-09-19 16:50] LABS: Alanine Aminotransferase 12 IU/L (<35); Albumin 4.9 g/dL (3.5-5.0); Albumin Globulin Ratio 1.2 (1.0-2.8); Alkaline Phosphatase 127 U/L (38-126); Aspartate Aminotransferase 22 IU/L (14-36); Bilirubin Total 0.5 mg/dL (0.2-1.3); Blood Urea Nitrogen 102 mg/dL (7-17); Calcium 9.2 mg/dL (8.4-10.2); Carbon Dioxide 11 mmol/L (22-32); Chloride 101 mmol/L (98-107); Cholesterol 229 mg/dL (140-199); Estimated Glomerular Filt Rate 3 mL/min (>60); Globulin 4.2 g/dL (1.7-4.1); Glucose 108 mg/dL (70-100); HDL Cholesterol 73 mg/dL (40-60); HEMOLYSIS < 15 (0-50); LDL Cholesterol Calculated 117 mg/dL (<100); Potassium 4.9 mmol/L (3.4-5.1); Sodium 133 mmol/L (137-145); Total Protein 9.1 g/dL (6.3-8.2); Triglycerides 196 mg/dL (35-150)
== END ==
PROVIDERS: PCP Student in an Organized Health Care Education/Training Program; Referring Provider Family Medicine; Visit Provider Family Medicine
DX: N18.6 End stage renal disease (principal)
CPT/HCPCS: 36415; 80053; 80061; 85025

== ENCOUNTER 2025-01-08 21:35 | Emergency (ER) | payer MEDICARE, MEDICAID, SELFPAY ==
[2024-01-28 12:03] VITALS: BMI 32.0
[2025-01-08 21:40] VITALS: BP 140/74; PULSE 62; O2SAT 97
[2025-01-08 21:41] VITALS: BP 140/74; PULSE 63; RESP 18; TEMP 36.8; O2SAT 97; BMI 28.8
--- NOTE | 2025-01-08 21:58 | PC.NURSE ---
Bleeding controlled prior to arrival
[2025-01-08 22:00] VITALS: PULSE 56; O2SAT 97
[2025-01-08 22:01] VITALS: BP 165/83; PULSE 57; O2SAT 97
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
== END 2025-01-08 22:32 | disposition home or self-care (01) ==
PROVIDERS: Emergency Provider Emergency Medicine; PCP Family Medicine
DX: T82.838A Hemorrhage due to vascular prosthetic devices, implants and grafts, initial encounter (principal); Z99.2 Dependence on renal dialysis; Z84.1 Family history of disorders of kidney and ureter
CPT/HCPCS: 99281